=== PATIENT | female | born 1970 | race Caucasian/White ===

== ENCOUNTER → 2016-07-23 | Outpatient (CLI) | payer OTHER ==
--- NOTE | 2016-07-23 14:58 | REPMRS ---
Patient History The patient states she had a clinical breast exam in Family history of prostate cancer in father at age 50 or over, breast cancer in paternal aunt under age 50, and breast cancer in maternal grandmother at age 50 or over. Taking hormonal contraceptives for 4 years. Digital Woman Screen Mammo: July 23, 2016 - Exam #: [id number] Bilateral CC and MLO view(s) were taken. Technologist: Shanita Gonzalez, Technologist Prior study comparison: July 20, 2015, digital woman screen mammo performed at [facility]. February 04, 2014, digital woman screen mammo performed at [facility]. 2006, bilateral mammogram, performed at [facility]. FINDINGS: The breast tissue is heterogeneously dense. This may lower the sensitivity of mammography. There is a moderate amount of heterogeneously dense fibroglandular tissue which is fairly symmetric. There is no interval development of dominant mass, architectural distortion, or clustered microcalcification typical of malignancy. There has been no change in the appearance of the mammogram from the prior studies. ASSESSMENT: BI-RADS/ACR category 1 mammogram. Negative. Recommendation Routine screening mammogram of both breasts in 1 year (for women over age 40). This mammogram was interpreted with the aid of an FDA-approved computer-aided dectection system. Electronically Signed By: John Cast MD 07/23/16 [id number]
== END ==
LOC: M WHC 13:52
PROVIDERS: ATTEND Nurse Practitioner Women's Health
DX: Z12.31 Encounter for screening mammogram for malignant neoplasm of breast (principal)
CPT/HCPCS: G0123; G0202

== ENCOUNTER → 2016-08-26 | Outpatient (REF) | payer OTHER | LOC: M SFHCWAGY 13:51 | PROVIDERS: ATTEND Nurse Practitioner Women's Health | DX: R87.610 Atypical squamous cells of undetermined significance on cytologic smear of cervix (ASC-US) (principal) ==

== ENCOUNTER → 2016-09-12 | Outpatient (REF) | payer OTHER | LOC: M SMT 17:04 | PROVIDERS: ATTEND Nurse Practitioner Family | DX: N39.3 Stress incontinence (female) (male) (principal) ==

== ENCOUNTER → 2016-10-02 | Outpatient (CLI) | payer MEDICARE, OTHER ==
[2016-10-02 13:02] LABS: MEAN CORPUSCULAR HGB CONC 33.4 g/dl (32.0-36.5); MEAN CORPUSCULAR VOLUME 86.8 fl (80.0-96.0); RED CELL DISTRIBUTION WIDTH 13.4 % (11.5-14.5); WHITE BLOOD COUNT 5.6 K/mm3 (4.0-10.0)
[2016-10-02 13:40] LABS: FREE T4 0.8 NG/DL (0.76-1.46); IMMUNOGLOBULIN M 72.5 MG/DL (40-230)
[2016-10-02 14:13] LABS: BANDS 1 % (< 11); EOSINOPHILS 1 % (0-5)
[2016-10-02 14:14] LABS: ANISOCYTOSIS 1+
[2016-10-02 14:16] LABS: ERYTHROCYTE SEDIMENTATION RATE 9 mm/hr (0-20)
[2016-10-04 00:06] LABS: %CD3+CD4+CD8+ 0.6 % (Not Estab.); %CD3+CD4+CD8- 54.1 % (Not Estab.); %CD3+CD4-CD8+ 14.2 % (Not Estab.); %CD3+CD4-CD8- 1.3 % (Not Estab.); ABS CD3+CD4+CD8+ 10 /uL (Not Estab.); ABS CD3+CD4+CD8- 920 /uL (Not Estab.); ABS CD3+CD4-CD8+ 241 /uL (Not Estab.); ABS CD3+CD4-CD8- 22 /uL (Not Estab.); CD4/CD8 NYSDOH RATIO 3.81 (Not Estab.); Eosinophils 1 % (.); HCT 41.8 % (34.0-46.6); Monocytes 6 % (.); Neutrophils 62 % (.); WBC 5.6 x10E3/uL (3.4-10.8)
== END ==
LOC: M LAB 11:45
PROVIDERS: ATTEND Family Medicine
DX: D51.8 Other vitamin B12 deficiency anemias (principal); L21.9 Seborrheic dermatitis, unspecified; E78.2 Mixed hyperlipidemia

== ENCOUNTER 2016-12-23 17:26 | Emergency (ER) | payer MEDICARE, MEDICAID ==
[~2016-12-23] VITALS: Ht 162.6 cm; Wt 65.3 kg
[2016-12-23] MEDS ORDERED: ZOLP10TA2 PO (17:54)
[2016-12-23] MEDS ORDERED: ATOR80TA59 (17:54)
[2016-12-23] MEDS ORDERED: TOPI50TA9 PO (17:54)
[2016-12-23] MEDS ORDERED: CLON1TAB PO (17:54)
[2016-12-23] MEDS ORDERED: LATU80TA PO (17:54)
[2016-12-23] MEDS ORDERED: PARO20TA3 PO (17:54)
[2016-12-23] MEDS ORDERED: TIZA2TA PO (17:54)
[2016-12-23] MEDS ORDERED: BUPR100T3 PO (17:54)
[2016-12-23] MEDS ORDERED: PREVTAB2 (17:54)
[2016-12-23] MEDS ORDERED: BUTA-198 (17:54)
[2016-12-23] MEDS ORDERED: TRAZ50TA11 PO (17:54)
[2016-12-23] MEDS ORDERED: ARIP1TAB4 PO (17:54)
[2016-12-23] MEDS ORDERED: HYDR50TA70 PO (17:54)
[2016-12-23] MEDS ORDERED: ASEN5TA SL (17:54)
[2016-12-23] MEDS ORDERED: VITA1CAP40 (17:54)
[2016-12-23] MEDS ORDERED: AMIT25TA PO (17:54)
--- NOTE | 2016-12-23 18:40 | REP ---
Clinical: Headache and left facial droop . Comparison: 11/21/2015 . Findings: The ventricles, sulci, and cisterns are normal in position and appearance. Beard-white differentiation is maintained. No acute intracranial hemorrhage, mass/mass effect, pathology or trauma/injury. No evidence for acute infarction. No extra-axial fluid collection. Calvarium is intact. Paranasal sinuses and mastoid air cells are clear. Impression: Normal noncontrast head CT. No evidence for acute intracranial pathology or trauma/injury. Signed by Lorenzo Ramsey MD 12/23/2016 06:30 P
[2016-12-23] MEDS ORDERED: TOPI100T9 PO (19:34)
[2016-12-23 19:42] VITALS: BP 123/92
== END 2016-12-23 19:44 | disposition home or self-care (01) ==
LOC: M ED 17:26
DX: G43.709 Chronic migraine without aura, not intractable, without status migrainosus (principal); F43.10 Post-traumatic stress disorder, unspecified; F41.9 Anxiety disorder, unspecified; F31.9 Bipolar disorder, unspecified; F25.9 Schizoaffective disorder, unspecified; Z79.899 Other long term (current) drug therapy

== ENCOUNTER 2017-01-07 17:42 | Emergency (ER) | payer MEDICARE, MEDICAID ==
[~2017-01-07] VITALS: Ht 160 cm; Wt 64.7 kg
[~2017-01-07 17:42] MED LIST: AMIT25TA PO; ARIP1TAB4 PO; ASEN5TA SL; ATOR80TA59; BUPR100T3 PO; BUTA-198; CLON1TAB PO; HYDR50TA70 PO; LATU80TA PO; PARO20TA3 PO; PREVTAB2; TIZA2TA PO; TOPI100T9 PO; TOPI50TA9 PO; TRAZ50TA11 PO; VITA1CAP40; ZOLP10TA2 PO
[2017-01-07] MEDS ORDERED: RISP2TAB3 PO (18:03)
[2017-01-07 20:19] LABS: BASO % 0.3 % (0.0-1.0); EOS # 0.2 K/mm3 (0.0-0.50); EOS % 2.2 % (0.0-3.0); LARGE UNSTAINED CELL # 0.1 K/mm3 (0.0-0.4); LYMPH # 1.5 K/mm3 (1.5-4.5); LYMPH % 20.2 % (24.0-44.0); MEAN CORPUSCULAR HEMOGLOBIN 30.1 pg (27.0-33.0); MEAN CORPUSCULAR HGB CONC 34.4 g/dl (32.0-36.5); MEAN CORPUSCULAR VOLUME 87.3 fl (80.0-96.0); MONO # 0.3 K/mm3 (0.0-0.8); MONO % 4.2 % (0.0-5.0); NEUTROPHILS % 72.1 % (36.0-66.0); PLATELET COUNT, AUTOMATED 191 k/mm3 (150-450); RED CELL DISTRIBUTION WIDTH 13.9 % (11.5-14.5); WHITE BLOOD COUNT 6.9 K/mm3 (4.0-10.0)
[2017-01-07 20:49] LABS: CALCIUM LEVEL 8.8 MG/DL (8.5-10.1); CREATININE FOR GFR 1.11 MG/DL (0.55-1.02); GLOMERULAR FILTRATION RATE 56.1 (>58); POTASSIUM SERUM 3.4 MEQ/L (3.5-5.1)
[2017-01-07 21:46] VITALS: BP 120/80
[2017-01-07] MEDS ORDERED: MECL-68 PO (21:50)
[2017-01-07] MEDS ORDERED: MECLIZINE 25 MG TABLET PO ONE (22:00)
--- NOTE | 2017-01-08 04:30 | REPUSA ---
CT of the head Clinical history: vertigo. Comparison: 12/23/2016. Technique: Multiple axial CT images were obtained through the head without administration of contrast . Findings: The ventricles and sulci are symmetric bilaterally. There is no evidence of acute hemorrhag e or infarct. There is no midline shift, mass effect, or extra-axial fluid collection. The osseous st ructures are unremarkable. The visualized paranasal sinuses and mastoid air cells are clear. Impression: Negative study.
--- NOTE | 2017-01-08 08:31 | ECGEPIP ---
Stationary ECG Study [facility] - ED Test Date: 2017-01-07 Pat Name: KAHLIL THAPA Department: Room: - Gender: F Appointment Specialist: REID : [id number] Requested By: SAIRA Brizuela PA-C Order Number: [id number] Reading MD: Javy Leach Measurements Intervals [place] Rate: 100 P: 35 IA: 162 QRS: 39 QRSD: 117 T: 10 QT: 366 QTc: 473 Interpretive Statements SINUS TACHYCARDIA MODERATE INTRAVENTRICULAR CONDUCTION DELAY NONSPECIFIC T-WAVE ABNORMALITY SIMILAR TO 11/21/15 Electronically Signed On 01-08-2017 8:30:50 EDT by Javy Leach
== END 2017-01-07 22:17 | disposition home or self-care (01) ==
LOC: M ED 17:42
DX: R42 Dizziness and giddiness (principal); R55 Syncope and collapse; R29.6 Repeated falls; F41.9 Anxiety disorder, unspecified; R00.0 Tachycardia, unspecified; F25.9 Schizoaffective disorder, unspecified; F31.9 Bipolar disorder, unspecified; F43.10 Post-traumatic stress disorder, unspecified; Z79.899 Other long term (current) drug therapy

== ENCOUNTER 2017-01-15 19:08 | Emergency (ER) | payer MEDICARE, MEDICAID ==
[~2017-01-15] VITALS: Ht 154.9 cm; Wt 67.6 kg
[~2017-01-15 19:08] MED LIST changes: +MECL-68 PO; +RISP2TAB3 PO
[2017-01-15] MEDS ORDERED: BUPR100T3 PO (19:26)
[2017-01-15] MEDS ORDERED: ADDE20CA3 PO (19:26)
[2017-01-15 20:05] LABS: BASO % 0.3 % (0.0-1.0); EOS # 0.1 K/mm3 (0.0-0.50); EOS % 2.3 % (0.0-3.0); LARGE UNSTAINED CELL # 0.1 K/mm3 (0.0-0.4); LYMPH # 1.4 K/mm3 (1.5-4.5); LYMPH % 20.7 % (24.0-44.0); MEAN CORPUSCULAR HEMOGLOBIN 28.7 pg (27.0-33.0); MEAN CORPUSCULAR HGB CONC 32.8 g/dl (32.0-36.5); MEAN CORPUSCULAR VOLUME 87.6 fl (80.0-96.0); MONO # 0.3 K/mm3 (0.0-0.8); MONO % 4.8 % (0.0-5.0); NEUTROPHILS # 4.3 K/mm3 (1.8-7.7); PLATELET COUNT, AUTOMATED 211 k/mm3 (150-450); RED CELL DISTRIBUTION WIDTH 13.7 % (11.5-14.5); WHITE BLOOD COUNT 6.1 K/mm3 (4.0-10.0)
[2017-01-15 20:30] VITALS: BP 121/77
[2017-01-15 21:17] LABS: ALBUMIN 3.5 GM/DL (3.2-5.2); ALBUMIN/GLOBULIN RATIO 0.97 (1.00-1.93); ALKALINE PHOSPHATASE 114 U/L (45-117); ALT/SGPT 43 U/L (12-78); ANION GAP 7 MEQ/L (8-16); AST/SGOT 22 U/L (15-37); BILIRUBIN,DIRECT 0.1 MG/DL (0.0-0.2); BILIRUBIN,TOTAL 0.3 MG/DL (0.2-1.0); BLOOD UREA NITROGEN 11 MG/DL (7-18); CALCIUM LEVEL 8.4 MG/DL (8.5-10.1); CARBON DIOXIDE LEVEL 22 MEQ/L (21-32); CHLORIDE LEVEL 112 MEQ/L (98-107); CREATININE FOR GFR 1.04 MG/DL (0.55-1.02); GLOMERULAR FILTRATION RATE > 60.0 (>58); GLUCOSE, FASTING 93 MG/DL (70-105); POTASSIUM SERUM 3.8 MEQ/L (3.5-5.1); SODIUM LEVEL 141 MEQ/L (136-145); TOTAL PROTEIN 7.1 GM/DL (6.4-8.2)
[2017-01-15 21:49] LABS: CONTROL LINE HCG INT CTR LINE PRESENT
--- NOTE | 2017-01-16 11:23 | ECGEPIP ---
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
--- NOTE | 2017-01-17 17:00 | ECGEPIP ---
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
== END 2017-01-16 00:39 | disposition home or self-care (01) ==
LOC: M ED 19:08 → EDBD 19:08 → M ED 01-16 00:39
DX: T50.901A Poisoning by unspecified drugs, medicaments and biological substances, accidental (unintentional), initial encounter (principal); X58.XXXA Exposure to other specified factors, initial encounter; Y92.9 Unspecified place or not applicable; Y93.9 Activity, unspecified; Y99.8 Other external cause status; I10 Essential (primary) hypertension; F32.9 Major depressive disorder, single episode, unspecified; M19.90 Unspecified osteoarthritis, unspecified site; E78.5 Hyperlipidemia, unspecified; G43.909 Migraine, unspecified, not intractable, without status migrainosus
CPT/HCPCS: 36415; 80048; 80076; 82550; 84443; 84703; 85025; 93005; 93041; 94760; 99285; G0480

== ENCOUNTER → 2017-02-27 | Outpatient (REF) | payer MEDICARE, MEDICAID ==
[~2017-02-27] MED LIST changes: +ADDE20CA3 PO
== END ==
LOC: M SFHCPLAZ 11:30
PROVIDERS: ATTEND Physician Assistant Medical
DX: G44.209 Tension-type headache, unspecified, not intractable (principal)
CPT/HCPCS: 85652; 86038; 86140; 86200; G0463

== ENCOUNTER → 2017-03-11 | Outpatient (REF) | payer MEDICARE, MEDICAID ==
[2017-03-11 19:23] LABS: VITAMIN B12 LEVEL 402 PG/ML (247-911)
[2017-03-11 19:38] LABS: ALBUMIN 3.8 GM/DL (3.2-5.2); ALBUMIN/GLOBULIN RATIO 1.03 (1.00-1.93); ALKALINE PHOSPHATASE 105 U/L (45-117); ALT/SGPT 25 U/L (12-78); ANION GAP 9 MEQ/L (8-16); AST/SGOT 15 U/L (15-37); BILIRUBIN,TOTAL 0.2 MG/DL (0.2-1.0); BLOOD UREA NITROGEN 12 MG/DL (7-18); CALCIUM LEVEL 8.5 MG/DL (8.5-10.1); CARBON DIOXIDE LEVEL 23 MEQ/L (21-32); CHLORIDE LEVEL 112 MEQ/L (98-107); CREATININE FOR GFR 0.94 MG/DL (0.55-1.02); GLOMERULAR FILTRATION RATE > 60.0 (>58); GLUCOSE, FASTING 106 MG/DL (70-105); SODIUM LEVEL 144 MEQ/L (136-145); TOTAL PROTEIN 7.5 GM/DL (6.4-8.2)
[2017-03-11 20:22] LABS: BASO % 0.2 % (0.0-1.0); EOS # 0.1 K/mm3 (0.0-0.50); EOS % 1.8 % (0.0-3.0); LARGE UNSTAINED CELL # 0.1 K/mm3 (0.0-0.4); LARGE UNSTAINED CELL % 1.3 % (0.0-4.0); LYMPH # 1.6 K/mm3 (1.5-4.5); LYMPH % 21.7 % (24.0-44.0); MEAN CORPUSCULAR HEMOGLOBIN 29.9 pg (27.0-33.0); MEAN CORPUSCULAR HGB CONC 33.2 g/dl (32.0-36.5); MEAN CORPUSCULAR VOLUME 90.1 fl (80.0-96.0); MONO # 0.2 K/mm3 (0.0-0.8); MONO % 3.3 % (0.0-5.0); NEUTROPHILS # 5.2 K/mm3 (1.8-7.7); NEUTROPHILS % 71.6 % (36.0-66.0); PLATELET COUNT, AUTOMATED 240 k/mm3 (150-450); RED CELL DISTRIBUTION WIDTH 14.6 % (11.5-14.5); WHITE BLOOD COUNT 7.3 K/mm3 (4.0-10.0)
[2017-03-14 10:13] LABS: PRETREATED FOLATE FOR RBCFOL 15.5 NG/ML
== END ==
LOC: M SFHCPLAZ 15:31
PROVIDERS: ATTEND Family Medicine
DX: E78.2 Mixed hyperlipidemia (principal); E55.9 Vitamin D deficiency, unspecified; D51.8 Other vitamin B12 deficiency anemias; Z79.899 Other long term (current) drug therapy
CPT/HCPCS: 36415; 80053; 82306; 82607; 82747; 83036; 83970; 85025; G0463

== ENCOUNTER → 2017-05-27 | Outpatient (REF) | payer MEDICARE, MEDICAID ==
[2017-05-30 00:06] LABS: AMITRIPTYLINE 54 ng/mL (Not Estab.); NORTRIPTYLINE 65 ng/mL (Not Estab.)
== END ==
LOC: M SFHCPLAZ 12:55
PROVIDERS: ATTEND Family Medicine
DX: F99 Mental disorder, not otherwise specified (principal); Z51.81 Encounter for therapeutic drug level monitoring
CPT/HCPCS: 36415; G0480

== ENCOUNTER 2017-06-26 17:53 | Emergency (ER) | payer MEDICARE, MEDICAID ==
[2017-06-26] MEDS: IBUPROFEN 800 MG TAB PO (21:10)
[2017-06-26] MEDS: BENZONATATE 100 MG CAP PO (21:10)
[2017-06-26] MEDS: AUGMENTIN 875 MG TAB PO (21:10)
== END 2017-06-26 21:11 | disposition home or self-care (01) ==
LOC: M ED 17:53
DX: M54.9 Dorsalgia, unspecified (principal); R05 Cough; R07.9 Chest pain, unspecified; I10 Essential (primary) hypertension; E78.70 Disorder of bile acid and cholesterol metabolism, unspecified; F25.9 Schizoaffective disorder, unspecified
CPT/HCPCS: 71046

== ENCOUNTER → 2017-08-07 | Outpatient (REF) | payer MEDICARE, MEDICAID ==
[2017-08-07 17:39] LABS: ALKALINE PHOSPHATASE 112 U/L (45-117); ALT/SGPT 29 U/L (12-78); ANION GAP 8 MEQ/L (8-16); AST/SGOT 16 U/L (7-37); BILIRUBIN,TOTAL 0.2 MG/DL (0.2-1.0); BLOOD UREA NITROGEN 13 MG/DL (7-18); CALCIUM LEVEL 8.8 MG/DL (8.5-10.1); CARBON DIOXIDE LEVEL 24 MEQ/L (21-32); CHLORIDE LEVEL 112 MEQ/L (98-107); GLOMERULAR FILTRATION RATE > 60.0 (>58); GLUCOSE, FASTING 87 MG/DL (70-100); POTASSIUM SERUM 3.7 MEQ/L (3.5-5.1); SODIUM LEVEL 144 MEQ/L (136-145)
[2017-08-07 17:40] LABS: ALBUMIN 3.9 GM/DL (3.2-5.2); ALBUMIN/GLOBULIN RATIO 1.11 (1.00-1.93); TOTAL PROTEIN 7.4 GM/DL (6.4-8.2)
[2017-08-07 18:04] LABS: BASO % 0.4 % (0.0-1.0); EOS # 0.1 10^3/uL (0.0-0.50); EOS % 0.9 % (0.0-3.0); HEMATOCRIT 41.2 % (36.0-47.0); HEMOGLOBIN 13.8 g/dl (12.0-16.0); IMMATURE GRANULOCYTE % 0.4 % (0-3.0); LYMPH # 1.6 10^3/uL (1.5-4.5); LYMPH % 28.9 % (24.0-44.0); MEAN CORPUSCULAR HEMOGLOBIN 29.8 pg (27.0-33.0); MEAN CORPUSCULAR HGB CONC 33.5 g/dl (32.0-36.5); MONO # 0.3 10^3/uL (0.0-0.8); MONO % 6.3 % (0.0-5.0); NEUTROPHILS # 3.4 10^3/uL (1.8-7.7); NEUTROPHILS % 63.1 % (36.0-66.0); PLATELET COUNT, AUTOMATED 282 10^3/uL (150-450); RED BLOOD COUNT 4.63 10^6/uL (4.00-5.40); WHITE BLOOD COUNT 5.4 10^3/uL (4.0-10.0)
== END ==
LOC: M LABNEURO 15:32
DX: G43.909 Migraine, unspecified, not intractable, without status migrainosus (principal)
CPT/HCPCS: 80053

== ENCOUNTER 2017-10-16 20:01 | Emergency (ER) | payer MEDICARE, MEDICAID ==
[2017-10-16] MEDS: IBUPROFEN 600 MG TAB PO (22:15)
== END 2017-10-16 22:42 | disposition home or self-care (01) ==
LOC: M ED 20:01
DX: S93.602A Unspecified sprain of left foot, initial encounter (principal); X50.0XXA Overexertion from strenuous movement or load, initial encounter; Y92.89 Other specified places as the place of occurrence of the external cause; Z79.899 Other long term (current) drug therapy
CPT/HCPCS: 73630

== ENCOUNTER → 2017-11-13 | Outpatient (REF) | payer MEDICARE, MEDICAID | LOC: M SFHCPLAZ 11:47 | DX: E78.2 Mixed hyperlipidemia (principal); E55.9 Vitamin D deficiency, unspecified; Z53.8 Procedure and treatment not carried out for other reasons ==

== ENCOUNTER → 2017-11-18 | Outpatient (REF) | payer MEDICARE, MEDICAID ==
[2017-11-18 16:20] LABS: PTH INTACT 49.8 PG/ML (18.5-88.0); TOTAL 25(OH) VITAMIN D 24.1 NG/ML (30.0-100.0)
[2017-11-18 16:30] LABS: ALBUMIN 4.1 GM/DL (3.2-5.2); ALBUMIN/GLOBULIN RATIO 1.32 (1.00-1.93); ALKALINE PHOSPHATASE 118 U/L (45-117); ALT/SGPT 16 U/L (12-78); ANION GAP 7 MEQ/L (8-16); AST/SGOT 14 U/L (7-37); BILIRUBIN,TOTAL 0.3 MG/DL (0.2-1.0); BLOOD UREA NITROGEN 10 MG/DL (7-18); C REACTIVE PROTEIN QUANTITATIV 1.61 MG/DL (0.00-0.30); CALCIUM LEVEL 8.3 MG/DL (8.5-10.1); CARBON DIOXIDE LEVEL 22 MEQ/L (21-32); CHLORIDE LEVEL 111 MEQ/L (98-107); CHOLESTEROL LEVEL 213 MG/DL (<200); CHOLESTEROL RISK RATIO 4.437 (<5); CPK CREATINE PHOSPHOKINASE 32 U/L (26-192); CREATININE FOR GFR 0.95 MG/DL (0.55-1.30); FREE T4 0.55 NG/DL (0.76-1.46); GLOMERULAR FILTRATION RATE > 60.0 (>58); GLUCOSE, FASTING 81 MG/DL (70-100); HDL CHOLESTEROL 48 MG/DL (>40); LDL CHOLESTEROL 112.4 MG/DL (<100); NON-HDL-C 165 MG/DL; POTASSIUM SERUM 3.6 MEQ/L (3.5-5.1); SODIUM LEVEL 140 MEQ/L (136-145); THYROID STIMULATING HORMONE 0.518 uIU/ML (0.358-3.740); TOTAL PROTEIN 7.2 GM/DL (6.4-8.2); TRIGLYCERIDES LEVEL 263 MG/DL (<150)
== END ==
LOC: M SFHCPLAZ 11:02
DX: E78.2 Mixed hyperlipidemia (principal); E55.9 Vitamin D deficiency, unspecified
CPT/HCPCS: 82550

== ENCOUNTER → 2018-01-13 | Outpatient (CLI) | payer MEDICARE, MEDICAID | LOC: M WHC 09:03 | DX: Z12.31 Encounter for screening mammogram for malignant neoplasm of breast (principal); Z92.0 Personal history of contraception; Z80.3 Family history of malignant neoplasm of breast; Z12.4 Encounter for screening for malignant neoplasm of cervix | CPT/HCPCS: 77067; G0123 ==

== ENCOUNTER → 2018-01-13 | Outpatient (REF) | payer MEDICARE, MEDICAID ==
[2018-01-17 00:08] LABS: HPV HYBRID CAPTURE II Negative (Negative)
== END ==
LOC: M SFHCWAGY 14:24
DX: Z12.4 Encounter for screening for malignant neoplasm of cervix (principal)
CPT/HCPCS: G0123

== ENCOUNTER → 2018-03-17 | Outpatient (REF) | payer MEDICARE, MEDICAID ==
[2018-03-17 13:12] LABS: BASO % 0.2 % (0.0-1.0); EOS # 0.1 10^3/uL (0.0-0.50); EOS % 1.8 % (0.0-3.0); HEMATOCRIT 41.1 % (36.0-47.0); HEMOGLOBIN 13.5 g/dl (12.0-15.5); IMMATURE GRANULOCYTE % 0.7 % (0-3.0); LYMPH # 1.2 10^3/uL (1.5-4.5); LYMPH % 21.3 % (24.0-44.0); MEAN CORPUSCULAR HEMOGLOBIN 30.1 pg (27.0-33.0); MEAN CORPUSCULAR HGB CONC 32.8 g/dl (32.0-36.5); MEAN CORPUSCULAR VOLUME 91.7 fl (80.0-96.0); MONO # 0.3 10^3/uL (0.0-0.8); MONO % 5.9 % (0.0-5.0); NEUTROPHILS # 3.9 10^3/uL (1.8-7.7); NEUTROPHILS % 70.1 % (36.0-66.0); PLATELET COUNT, AUTOMATED 249 10^3/uL (150-450); RED BLOOD COUNT 4.48 10^6/uL (4.00-5.40); RED CELL DISTRIBUTION WIDTH 14.6 % (11.5-14.5); WHITE BLOOD COUNT 5.6 10^3/uL (4.0-10.0)
[2018-03-17 13:38] LABS: HEMATOCRIT 41.1 % (36.0-47.0)
[2018-03-17 15:41] LABS: ALBUMIN 3.7 GM/DL (3.2-5.2); ALBUMIN/GLOBULIN RATIO 1.12 (1.00-1.93); ALKALINE PHOSPHATASE 105 U/L (45-117); ALT/SGPT 17 U/L (12-78); ANION GAP 15 MEQ/L (8-16); AST/SGOT 14 U/L (7-37); BILIRUBIN,TOTAL 0.1 MG/DL (0.2-1.0); BLOOD UREA NITROGEN 12 MG/DL (7-18); CALCIUM LEVEL 8.8 MG/DL (8.5-10.1); CARBON DIOXIDE LEVEL 20 MEQ/L (21-32); CHLORIDE LEVEL 107 MEQ/L (98-107); CREATININE FOR GFR 0.81 MG/DL (0.55-1.30); GLOMERULAR FILTRATION RATE > 60.0 (>58); GLUCOSE, FASTING 78 MG/DL (70-100); POTASSIUM SERUM 3.8 MEQ/L (3.5-5.1); SODIUM LEVEL 142 MEQ/L (136-145)
[2018-03-18 10:40] LABS: H PYLORI SERUM QUANT IgG ABY 0.28 (0.00-0.79)
[2018-03-20 11:05] LABS: PRETREATED FOLATE FOR RBCFOL 14.1 NG/ML; RBC FOLATE 720.4 NG/ML (280-791)
[2018-03-22 00:06] LABS: INSULIN LEVEL 3.8 uIU/mL (2.6-24.9)
[2018-03-22 00:06] LABS: FREE T4 BY DIALYSIS DIRECT 0.49 ng/dL (.)
== END ==
LOC: M SFHCPLAZ 10:46
DX: D51.8 Other vitamin B12 deficiency anemias (principal); E78.2 Mixed hyperlipidemia; E55.9 Vitamin D deficiency, unspecified; Z51.81 Encounter for therapeutic drug level monitoring; Z79.82 Long term (current) use of aspirin
CPT/HCPCS: 83525

== ENCOUNTER → 2018-03-27 | Outpatient (CLI) | payer MEDICARE, MEDICAID | LOC: M RAD 16:43 | DX: M50.322 Other cervical disc degeneration at C5-C6 level (principal); M50.221 Other cervical disc displacement at C4-C5 level; M50.223 Other cervical disc displacement at C6-C7 level | CPT/HCPCS: 72141 ==

== ENCOUNTER → 2018-07-10 | Outpatient (REF) | payer MEDICARE, MEDICAID ==
[~2018-07-10] MED LIST changes: +AUGM875T28 PO; -CLON1TAB PO; +CLON1TAB8 PO; +EZET10TA; +IBUP-1022 PO; +LAMO100T; +OMEP20CA3; +PROP10TA56; +QUET1TAB10; +QUET1TAB8; +TESS100C PO; +TIZANIDINE; +TRAZ-160 PO; -TRAZ50TA11 PO; -VITA1CAP40; +VITA50005; +ZALE10CA
== END ==
LOC: M LAB REF 14:47
PROVIDERS: ATTEND Physician Assistant
DX: R30.0 Dysuria (principal)

== ENCOUNTER → 2018-07-28 | Outpatient (CLI) | payer MEDICARE, MEDICAID ==
[2018-07-28 19:07] LABS: BASO % 0.7 % (0.0-1.0); EOS # 0.1 10^3/uL (0.0-0.50); EOS % 2.2 % (0.0-3.0); HEMATOCRIT 39.7 % (36.0-47.0); LYMPH # 1.4 10^3/uL (1.5-4.5); LYMPH % 25.3 % (24.0-44.0); MEAN CORPUSCULAR HEMOGLOBIN 30.5 pg (27.0-33.0); MEAN CORPUSCULAR HGB CONC 32.7 g/dl (32.0-36.5); MEAN CORPUSCULAR VOLUME 93.2 fl (80.0-96.0); MONO # 0.5 10^3/uL (0.0-0.8); MONO % 8.4 % (0.0-5.0); NEUTROPHILS # 3.4 10^3/uL (1.8-7.7); NEUTROPHILS % 63.2 % (36.0-66.0); PLATELET COUNT, AUTOMATED 253 10^3/uL (150-450); RED BLOOD COUNT 4.26 10^6/uL (4.00-5.40); WHITE BLOOD COUNT 5.4 10^3/uL (4.0-10.0)
[2018-07-28 19:26] LABS: ALBUMIN 3.8 GM/DL (3.2-5.2); ALT/SGPT 19 U/L (12-78); BILIRUBIN,TOTAL 0.2 MG/DL (0.2-1.0); BLOOD UREA NITROGEN 15 MG/DL (7-18); C REACTIVE PROTEIN QUANTITATIV 1.06 MG/DL (0.00-0.30); CALCIUM LEVEL 8.8 MG/DL (8.5-10.1); CARBON DIOXIDE LEVEL 25 MEQ/L (21-32); CHLORIDE LEVEL 108 MEQ/L (98-107); CHOLESTEROL LEVEL 225 MG/DL (<200); CHOLESTEROL RISK RATIO 3.461 (<5); CPK CREATINE PHOSPHOKINASE 152 U/L (26-192); CREATININE FOR GFR 0.93 MG/DL (0.55-1.30); FREE T4 0.62 NG/DL (0.76-1.46); GLOMERULAR FILTRATION RATE > 60.0 (>58); GLUCOSE, FASTING 86 MG/DL (70-100); HDL CHOLESTEROL 65 MG/DL (>40); LDL CHOLESTEROL 126 MG/DL (<100); NON-HDL-C 160 MG/DL; POTASSIUM SERUM 4.1 MEQ/L (3.5-5.1); PTH INTACT 61.7 PG/ML (18.5-88.0); SODIUM LEVEL 139 MEQ/L (136-145); THYROID STIMULATING HORMONE 0.709 uIU/ML (0.358-3.740); TOTAL 25(OH) VITAMIN D 15.6 NG/ML (30.0-100.0); TOTAL PROTEIN 7.2 GM/DL (6.4-8.2); TRIGLYCERIDES LEVEL 170 MG/DL (<150)
[2018-07-29 09:35] LABS: THYROGLOBULIN ANTIBODY 20.5 U/ML (<60.0); THYROID PEROXIDASE ANTIBODY < 28.0 U/ML (<60.0)
[2018-07-30 11:58] LABS: VITAMIN B12 LEVEL 308 PG/ML (232-1245)
== END ==
LOC: M WUC 14:08
PROVIDERS: ATTEND Family Medicine
DX: D51.8 Other vitamin B12 deficiency anemias (principal); E78.2 Mixed hyperlipidemia; E55.9 Vitamin D deficiency, unspecified
CPT/HCPCS: 36415; 80053; 80061; 82306; 82550; 82607; 83970; 84439; 84443; 85025; 86140; 86376; 86800; G0463

== ENCOUNTER → 2018-09-08 | Outpatient (CLI) | payer MEDICARE, MEDICAID ==
--- NOTE | 2018-09-09 23:07 | ECWPNPC ---
PATIENT NAME: KAHLIL OZUNA : 1970 GENDER: FEMALE VISIT DATE: 09/08/2018 DISCHARGE DATE: 09/08/18 1219 VISIT LOCKED DATE TIME: PHYSICIAN: MAYCO NIEVES PHYSICIAN PAGER NO: [phone] RESOURCE: MAYCO NIEVES REASON FOR APPOINTMENT 1. CERVICAL HISTORY OF PRESENT ILLNESS NEW PATIENT CONSULT: WHEN DID YOUR PAIN FIRST START? OTHER. BRIEFLY DESCRIBE HOW YOUR PAIN STARTED? NATURE: DULL. HOW DOES YOUR PAIN CHANGE WITH TIME? ROTATION TO LEFT SIDE, WORSENS PAIN. DOES YOUR PAIN AWAKEN YOU FROM SLEEP? NO. HOW MANY HOURS OF SLEEP DO YOU NORMALLY GET? 5 HOURS. ANY DIAGNOSTIC TESTING? MRI 2018. FACILITY WHERE TESTS WERE DONE? ____. PAIN TREATMENT TREATMENT YES CANCER HAVE YOU EVER HAD ANY TYPE OF CANCER?NO NO. 47 YEAR OLD FEMALE WITH HX OF CHRONIC NECK PAIN FOR MANY YEARS. WAS REFERRED BY PCP FOR CHRONIC NECK PAIN AND MIGRAINES. PAIN SCALE 7/10HAS BI POLAR DISORDER.MRI 2018:DEGENERAIVE NARROWING OF C5-C6.MILD BILATERAL UNCOVERTEBRAL SPURRING AT C5-C6C6-7 DIFFUSE DISC BULGIMP: DDD AT C5-C6, SMALL DISC PROTRUSION.MRI BRAIN ( FOR DIZZINESS) NEGATIVE STUDYHAS BEEN USING METHOCARBAMOL FOR PAIN. PAIN SCREENING: PATIENT HAS A COMPLAINT OF ACUTE OR CHRONIC PAIN :YES FALL RISK SCREENING: SCREENING : NO FALLS IN THE PAST YEAR. ALVAREZ INVENTORY: QUESTIONNAIRE ASSESSEDTBD SCORE VALUE CALCULATED TBD CURRENT MEDICATIONS TAKING VITAMIN B-12 1000 MCG TABLET 1 TABLET ORALLY ONCE A DAY TAKING RELPAX 40 MG TABLET 1 TABLET NEEDED ONE TIME ORALLY ONCE A DAY PRN MIGRAINE TAKING TOPIRAMATE 100 MG TABLET 1 TABLET ORALLY TWICE A DAY TAKING LATUDA 80 MG TABLET 2 TABLET ORALLY BEFORE BEDTIME TAKING PAXIL 40 MG TABLET 1 TABLET IN THE MORNING ORALLY ONCE A DAY TAKING LAMOTRIGINE 100 MG TABLET 1 TABLET ORALLY TWICE A DAY TAKING SEROQUEL 300 MG TABLET 1 TABLET ORALLY BEFORE BEDTIME TAKING SPRINTEC 28 0.25-35 MG-MCG TABLET 1 TABLET ORALLY ONCE A DAY AT SAME TIME EACH DAY TAKING ASPIRIN 81 MG TABLET CHEWABLE 1 TABLET ORALLY ONCE A DAY TAKING ATORVASTATIN CALCIUM 80 MG TABLET 1 TABLET ORALLY ONCE A DAY TAKING EZETIMIBE 10 MG TABLET 1 TABLET ORALLY ONCE A DAY TAKING ROBAXIN 500 MG TABLET 1 TAB ORALLY EVERY 6 HRS PRN NECK SPASM TAKING ERGOCALCIFEROL 48130 UNIT CAPSULE 1 CAPSULE ORALLY EVERY 7 DAYS NOT-TAKING DOXEPIN HCL 10 MG CAPSULE 1 CAPSULE AT BEDTIME ORALLY ONCE A DAY NOT-TAKING PAROXETINE HCL 40 MG TABLET 1 TABLET IN THE MORNING ORALLY ONCE A DAY NOT-TAKING EZETIMIBE 10 MG TABLET TAKE ONE TABLET BY MOUTH ONCE A DAY NOT-TAKING ATORVASTATIN CALCIUM 80 MG TABLET TAKE ONE TABLET BY MOUTH ONCE A DAY MEDICATION LIST REVIEWED AND RECONCILED WITH THE PATIENT PAST MEDICAL HISTORY MIGRAINE HEADACHES, COMMON TYPE-01/2011, 12/[address] OF THE BRAIN/ NORMAL MRI BRAIN S CONTRAST BILATERAL SUPRASPINATUS TENDINITIS-JULY 2011 NORMAL BILATERAL SHOULDER X-RAY/APRIL 2011 NEGATIVE RHEUMATOID FACTOR, RACHEL IMPAIRED FASTING GLUCOSE, GEST DM WITH 2ND PREG B12 DEFICIENCY HYPERLIPIDEMIA 2B DEPRESSION/ANXIETY DISORDER/INSOMNIA BIPOLAR DISORDER FIBROCYSTIC BREAST DISEASE INSOMNIA BPV HYPERTENSION-02/2014 NORMAL 24H URINE FOR METANEPHRINES/CATECHOLAMINES, UFC, ALODSTERONE, NA CERVICAL SPONDYLOSIS-MILD ML, BERONICA C56 C SMALL CENTRAL FOCAL HNP C MILD B UNCO SPUR BY 03/2018 MRI H/O YANELY III S/P LEEP L DISTAL TIBIA/FIBULA CLOSED FRACTURE SP 09/2017 MECHANICAL FALL-CASTED BY DR. AMADO NCOG PINEAL CYST NAFLD-DIFFUSE FATTY INFILTRATION C FOCAL DEPOSITION IN MEDIAL SEGMENT OF L LOBE AT SITE ? NODULE BY 03/2017 CT AP-SEEN BY 03/2017 MRI ABD S/C VERÓNICA ALLERGIES N.K.D.A. SURGICAL HISTORY COLPOSCOPY 08/11/2015 & 08/26/2016 LEEP 09/07/15 FAMILY HISTORY FATHER: ALIVE 67 YRS, HTN, PROSTATE CANCER, ENLARGED HEART MOTHER: ALIVE 65 YRS, DM, HYSTERECTOMY, DIAGNOSED WITH DIABETES IN 2 SIBLINGS: ALIVE 41, 34 YRS, SISTER-THYROID DISORDER, BROTHER-HEALTHY SON(S): ALIVE 13 YRS, ASTHMA DAUGHTER(S): ALIVE 15 YRS, NEUROCARDIOGENIC SYNCOPE PATERNAL GRAND FATHER: , HTN, DM PATERNAL GRAND MOTHER: , HTN, DM, PANCREATIC CANCER MATERNAL GRAND FATHER: , HTN, STROKE MATERNAL GRAND MOTHER: , HTN, DM, BREAST CANCER PATERNAL AUNT: ALIVE LATE 50'S YRS, BREAST CANCER DX LATE 20 1 BROTHER(S) , 1 SISTER(S) . 1 SON(S) , 1 DAUGHTER(S) . DENIES COLON OR OVARIAN CANCERS. FATHER HAD PROSTATE CANCER. SOCIAL HISTORY GENERAL: TOBACCO USE ARE YOU A:NONSMOKER NEVER SMOKER ALCOHOL SCREENING DID YOU HAVE A DRINK CONTAINING ALCOHOL IN THE PAST YEAR?NO POINTS0 INTERPRETATIONNEGATIVE RECREATIONAL DRUG USE DENIES. CAFFEINE CAFFEINE USE?YES AILY HAS A CUP SEXUAL HX HAD SEX IN THE LAST 12 MONTHS (VAGINAL, ORAL, OR ANAL)?YES WITHMEN ONLY USE PROTECTION?NO HAVE YOU EVER HAD AN STD?NO LMP:03/25/2017 HIV / HEP-C SCREENING HIV TEST OFFERED TO PATIENT:YES DATE OFFERED:07/23/2016 TEST ACCEPTED:NO REASON:PATIENT DECLINED SABIANIST NO PENTECOSTALISM BELIEFS THAT WOULD IMPACT HEALTH CARE. LANGUAGE MALAY. EDUCATION LEVEL OF EDUCATION:HIGH SCHOOL LEARNING BARRIERS / SPECIAL NEEDS CHANGE FROM LAST VISIT?YES MIGRAINE BARRIERS TO LEARNING?NO HEARING IMPAIRED?NO VISION IMPAIRED?NO COGNITIVELY IMPAIRED?NO READINESS TO LEARN?YES LEARNING PREFERENCES?NO LEARNING CAPABILITIES PRESENT?YES EMOTIONAL BARRIERS?NO SPECIAL DEVICES?NO PATIENT SERVICE REPRESENTATIVE NEEDED?NO DOMESTIC VIOLENCE DENIES, 02/23/14 HITS=4. OCCUPATION: DISABLED. DIET: NO HX EATING DISORDERS. EXERCISE: NO REGULAR EXERCISE SOME WALKING. MARITAL STATUS: .. OTHERS AT HOME: BOYFRIEND. PAIN CLINIC PFS, CLERGY, PUBLIC HEALTH REFERRALS HAS THE PATIENT BEEN EDUCATED REGARDING HIS/HER PLAN OF CARE?YES HAS THE PATIENT BEEN EDUCATED REGARDING PAIN, THE RISK FOR PAIN, THE IMPORTANCE OF EFFECTIVE PAIN MANAGEMENT, AND THE PAIN ASSESSMENT PROCESS?YES CLERGY REFERRAL NEEDED?NO WAS THE PROVIDER NOTIFIED OF ANY PERTINENT INFO?NO PFS REFERRAL NEEDED?NO PUBLIC HEALTH REFERRAL NEEDED?NO HOUSING: OWNS HOME. ADVANCE DIRECTIVE ADVANCE DIRECTIVE DISCUSSED WITH PATIENT:YES PT DECLINES ANY ASSISTANCE WITH FILLING OUT OR DECLINES PAPERWORK PATIENT: ____. HOSPITALIZATION/MAJOR DIAGNOSTIC PROCEDURE NONE REVIEW OF SYSTEMS REVIEWED BY: PROVIDER: JOSUÉ Fisher CONSTITUTIONAL: ANY CHANGE IN YOUR MEDICAL CONDITION? NO . CHILLS NO . FEVER NO . INFECTION: DO YOU HAVE NEW INFECTIONS? NO . DO YOU HAVE HISTORY OF MRSA? NO . MUSCULOSKELETAL: ANY NEW PATTERNS OF PAIN OR NUMBNESS? NO . SYTEMIC LUPUS NO . GASTROENTEROLOGY: ANY NEW CHANGE IN BOWEL CONTROL? NO . BARRETTS ESOPHAGUS NO . CIRRHOSIS NO . HEPATITIS NO . LIVER FAILURE NO . ACID REFLUX NO . UNEXPLAINED WEIGHT LOSS NO . GENITOURINARY: ANY NEW CHANGE IN BLADDER CONTROL? NO . IS THERE A CHANCE YOU COULD BE ? NO . HEMATOLOGY/LYMPH: DO YOU TAKE ANY BLOOD THINNERS? (FOR EXAMPLE- COUMADIN, PLAVIX, AGGRENOX, PLATEL, PRADAXA, OR XARELTO) NO . WHEN WAS YOUR LAST DOSE? DATE: TIME: . LOW PLATELET COUNT NO . SICKLE CELL DISEASE NO . VON WILLIEBRANDS NO . FACTOR V LEIDEN NO . THALLASEMIA NO . ANEMIA NO . EASY BRUISING NO . NEUROLOGY: HAVE YOU FALLEN IN THE PAST 12 MONTHS? NO . ANY NEW EXTREMITY NUMBNESS OR WEAKNESS? INCREASE IN HEADACHES AND STIFFNESS WHERE IT GETS STUCK MORE OBN THE LEFT SIDE OF NECK . HEAD INJURY NO . DEMENTIA NO . CEREBRAL PALSY NO . MULTIPLE SCLEROSIS NO . DIZZINESS NO . HEADACHE NO . STROKES NO . VERTIGO NO . CARDIOLOGY: DO YOU HAVE A PACEMAKER OR DEFIBRILLATOR? NO . ANGINA NO . HEART ATTACK NO . HEART SURGERY NO . CONGESTIVE HEART FAILURE/FLUID OVERLOAD NO . CHEST PAIN NO . HIGH BLOOD PRESSURE NO . IRREGULAR HEART BEAT NO . RESPIRATORY: HAVE YOU BEEN SICK IN THE PAST WEEK? NO . FEVER NO . FLU LIKE SYMPTOMS? NO . CPAP NO . BYPAP NO . ASTHMA NO . EMPHYSEMA NO . CHRONIC LUNG DISEASES NO . SHORTNESS OF BREATH ON EXERTION NO . DO YOU USE ANY TYPE OF TOBACCO (SMOKE, SMOKELESS, CHEW)? NO . COUGH NO . SNORING NO . INTEGUMENTARY: DO YOU HAVE ANY RASHES OR OPEN SORES? NO . ALLERGIC/IMMUNO: ARE YOU ALLERGIC TO IV DYE? NO . ANY NEW ALLERGIES? NO . PSYCHIATRIC: DO YOU HAVE THOUGHTS OF HURTING YOURSELF OR SOMEONE ELSE? NO . ARE YOU ABUSED, NEGLECTED, OR IN AN UNSAFE ENVIRONMENT? NO DOES HAVE A HISTORY OF BIPOLOR AND SEES LITELL . ENDOCRINOLOGY: ARE YOU DIABETIC? NO . THYROID DISORDER NO . OTHER: DO YOU NEED ANY PRESCRIPTIONS? INQUIRING ABOUT INCREASE IN MUSCLE RELAXER METHOCARBONALK . IF YES, PLEASE LIST: ____ . ANY NEW PROBLEMS WITH YOUR MEDICATIONS? NO . WHEN DID YOU LAST EAT? ____ . WHEN DID YOU LAST DRINK? ____ . WHAT DID YOU LAST DRINK? ____ . NAME OF PERSON DRIVING YOU HOME? ____ . DO YOU HAVE ANY OTHER QUESTIONS OR CONCERNS NO . VITAL SIGNS WT 138.4 LBS, HT 62 IN, BMI 25.31 INDEX, BP 105/72 MM HG, HR 89 /MIN, RR 18 /MIN, TEMP 96.6 F, OXYGEN SAT % 100%, NA INITIALS SC 10:14. EXAMINATION GENERAL EXAMINATION: GENERAL APPEARANCE:NO ACUTE DISTRESS, WELL NOURISHED AND HYDRATED. PSYCH AFFECT FLAT. NECK:NO SCARS, NO MASSES FROM NON TENDER ON PALPATION. HEART:NO MURMURS, REGULAR RATE AND RHYTHM. BACK:NO CVA TENDERNESS, UNREMARKABLE. ASSESSMENTS NECK PAIN - M54.2 (PRIMARY) MYOFASCIAL PAIN - M79.18 CERVICALGIA - M54.2 TREATMENT NECK PAIN CLINICAL NOTES: CONSULTATION DONE IN CONJUNCTION WITH DR CAVAZOS: [facility] AND ASKED TO CONTACT US AT PAIN MANAGEMENT HX OF MRI OF BRAIN IN 2017 CYSTIC APPEARING PINEAL GLAND. PROCEDURE CODES FA211 ESTABILISHED PATIENT [facility] CHARGE DISPOSITION & COMMUNICATION FOLLOW UP POST PROCEDURE (REASON: TPI BILAT) ELECTRONICALLY SIGNED BY TIFFANIE WALTON ON 09/09/2018 AT 09:30 AM EDT DISCLAIMER : THIS IS A VISIT SUMMARY EXTRACTED FROM THE [employer] CHART. IT IS NOT A COPY OF THE [employer] PROGRESS NOTE. ANGELINA
== END ==
LOC: M PAIN 10:00
PROVIDERS: ATTEND Nurse Practitioner Family
DX: M54.2 Cervicalgia (principal); M79.18 Myalgia, other site; G43.909 Migraine, unspecified, not intractable, without status migrainosus; R73.01 Impaired fasting glucose; I10 Essential (primary) hypertension; E78.5 Hyperlipidemia, unspecified; Z79.82 Long term (current) use of aspirin; Z79.899 Other long term (current) drug therapy; Z86.32 Personal history of gestational diabetes; Z86.59 Personal history of other mental and behavioral disorders

== ENCOUNTER → 2018-11-23 | Outpatient (REF) | payer MEDICARE, MEDICAID ==
[~2018-11-23] MED LIST changes: -EZET10TA; +EZET10TA21; -TRAZ-160 PO; +TRAZ-252 PO
[2018-11-23 13:27] LABS: C REACTIVE PROTEIN QUANTITATIV 1.46 MG/DL (0.00-0.30); CPK CREATINE PHOSPHOKINASE 618 U/L (26-192); TROPONIN I < 0.02 NG/ML (< 0.10)
[2018-11-26 00:09] LABS: ANA (HEP2) Negative (.); CYCLIC CITRULLINATED PEPTIDE 5 units (0-19)
== END ==
LOC: M SFHCPLAZ 10:14
PROVIDERS: ATTEND Family Medicine
DX: M50.30 Other cervical disc degeneration, unspecified cervical region (principal); E78.2 Mixed hyperlipidemia; M25.60 Stiffness of unspecified joint, not elsewhere classified
CPT/HCPCS: 82550; 84484; 85379; 85652; 86038; 86140; 86200; G0463

== ENCOUNTER → 2018-12-02 | Outpatient (CLI) | payer MEDICARE, MEDICAID ==
[~2018-12-02] MED LIST changes: +ISOVUE-370 76% 100ML VIAL (Q9967) As Ordered ONE
--- NOTE | 2018-12-02 11:18 | REP ---
CT ANGIOGRAM OF THE CHEST: TECHNIQUE: Axial contrast enhanced images from the thoracic inlet to the upper abdomen using 100 mL Isovue 370 intravenous contrast material with multiplanar reformations. There is a small, 4 mm filling defect in the proximal segmental branch supplying the medial basilar segment of the right lower lobe consistent with a single small focal pulmonary embolism. The other visualized pulmonary arteries opacify well with contrast with no other evidence of pulmonary embolism. There is no thoracic aortic aneurysm or dissection. There is no mediastinal, hilar, or chest wall lymphadenopathy. Heart is normal in size. There is no pleural or pericardial effusion. There is diffuse fatty infiltration of the liver. The lungs show scattered fibroatelectatic changes bilaterally particularly in the lung bases. IMPRESSION: There is a small focal 4 mm pulmonary embolism in the proximal aspect of the segmental pulmonary arterial branch supplying the medial basilar segment of the right lower lobe. No other evidence of pulmonary embolism. Scattered fibroatelectatic changes in the lung bases. Electronically Signed by Bal Beard MD 12/02/2018 04:51 P
== END ==
LOC: M RAD 09:44
PROVIDERS: ATTEND Family Medicine
DX: R79.89 Other specified abnormal findings of blood chemistry (principal); I26.99 Other pulmonary embolism without acute cor pulmonale
CPT/HCPCS: 71275; Q9967

== ENCOUNTER → 2018-12-07 | Outpatient (CLI) | payer MEDICARE, MEDICAID ==
[~2018-12-07] MED LIST changes: -ISOVUE-370 76% 100ML VIAL (Q9967) As Ordered ONE
[2018-12-07 12:28] LABS: HEMATOCRIT 44.7 % (36.0-47.0); HEMOGLOBIN 14.4 g/dl (12.0-15.5); MEAN CORPUSCULAR HEMOGLOBIN 29.5 pg (27.0-33.0); MEAN CORPUSCULAR HGB CONC 32.2 g/dl (32.0-36.5); MEAN CORPUSCULAR VOLUME 91.6 fl (80.0-96.0); PLATELET COUNT, AUTOMATED 234 10^3/uL (150-450); RED BLOOD COUNT 4.88 10^6/uL (4.00-5.40); WHITE BLOOD COUNT 6.1 10^3/uL (4.0-10.0)
[2018-12-07 12:39] LABS: INR 0.97
[2018-12-07 12:40] LABS: PARTIAL THROMBOPLASTIN TIME 28.1 SECONDS (25.4-37.6)
[2018-12-07 12:47] LABS: ALBUMIN 4.2 GM/DL (3.2-5.2); CALCIUM LEVEL 9.2 MG/DL (8.5-10.1); CREATININE FOR GFR 1.24 MG/DL (0.55-1.30); GLOMERULAR FILTRATION RATE 48.9 (>58); PHOSPHORUS LEVEL 2.5 MG/DL (2.5-4.9)
--- NOTE | 2018-12-07 16:05 | REP ---
Bilateral lower extremity deep vein duplex ultrasound: The deep veins demonstrate normal compression, normal Doppler color flow and normal Doppler waveforms with respiration and augmentation from the popliteal veins to the common femoral veins the right and left . Impression: There is no deep vein thrombus in the right or left lower extremities. Electronically Signed by Bal Antonio MD 12/07/2018 12:42 P
[2018-12-15 00:06] LABS: ANTI THROMBIN 3 ANTIGEN IMMUNO 135 % (72-124); ANTI THROMBIN 3 FUNCT ACTIVITY 148 % (75-135); PROTEIN C FUNCTIONAL ACTIVITY 131 % (73-180); PROTEIN S FUNCTIONAL ACTIVITY 68 % (63-140)
[2018-12-15 09:12] LABS: DRVV SCREEN 54.4 SEC
[2018-12-15 09:13] LABS: PTT LUPUS TYPE ANTICOAG SCREEN 1.3 (0-1.2)
[2018-12-15 09:26] LABS: DRVV CONFIRM 38.8 SEC
[2018-12-15 09:56] LABS: NORMALIZED RATIO 1.3 (0.00-1.20)
== END ==
LOC: M RAD 11:37
PROVIDERS: ATTEND Nurse Practitioner Family
DX: I26.99 Other pulmonary embolism without acute cor pulmonale (principal)

== ENCOUNTER → 2018-12-07 | Outpatient (CLI) | payer MEDICARE, MEDICAID | LOC: M SMT 11:02 | PROVIDERS: ATTEND Nurse Practitioner Family | DX: I26.99 Other pulmonary embolism without acute cor pulmonale (principal); Z53.8 Procedure and treatment not carried out for other reasons ==

== ENCOUNTER 2018-12-17 09:11 | Emergency (ER) | payer OTHER, MEDICARE, MEDICAID ==
[~2018-12-17] VITALS: Ht 154.9 cm; Wt 61.4 kg
[~2018-12-17 09:11] MED LIST changes: -OMEP20CA3; +OMEP20CA4
[2018-12-17] MEDS ORDERED: XARE10TA PO (09:29)
--- NOTE | 2018-12-17 09:49 | REP ---
Clinical: Trauma . Comparison: 01/07/2017 Findings: The ventricles, sulci, and cisterns are normal in position and appearance. Beard-white differentiation is maintained. No acute intracranial hemorrhage, mass/mass effect, pathology or trauma/injury. No evidence for acute infarction. No extra-axial fluid collection. Calvarium is intact. Paranasal sinuses and mastoid air cells are clear. Impression: Normal noncontrast head CT. No evidence for acute intracranial pathology or trauma/injury. Electronically Signed by Lorenzo Ramsey MD 12/17/2018 09:41 A
--- NOTE | 2018-12-17 10:58 | REP ---
PA and lateral chest: Comparison is 06/26/2017. There is no pneumothorax, hemothorax or pulmonary contusion. The lung broderick are clear. Cardiac size is normal. The lizzeth, mediastinum, skeletal structures are unremarkable. There is no interval change. Impression: Negative PA and lateral chest. Electronically Signed by Bal Antonio MD 12/17/2018 10:50 A
[2018-12-17 11:52] VITALS: BP 90/63
--- NOTE | 2018-12-17 20:05 | ECGEPIP ---
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
== END 2018-12-17 12:04 | disposition home or self-care (01) ==
LOC: M ED 09:11 → EDBD 09:11 → M ED 12:04
DX: S20.211A Contusion of right front wall of thorax, initial encounter (principal); V43.92XA Unspecified car occupant injured in collision with other type car in traffic accident, initial encounter; Y92.410 Unspecified street and highway as the place of occurrence of the external cause; I10 Essential (primary) hypertension; F31.9 Bipolar disorder, unspecified; E78.9 Disorder of lipoprotein metabolism, unspecified; G43.909 Migraine, unspecified, not intractable, without status migrainosus; Z79.899 Other long term (current) drug therapy; Z79.01 Long term (current) use of anticoagulants

== ENCOUNTER → 2018-12-25 | Outpatient (REF) | payer MEDICARE, MEDICAID ==
[~2018-12-25] MED LIST changes: +OMEP20CA3; -OMEP20CA4; +XARE10TA PO
[2018-12-25 12:32] LABS: ALBUMIN 3.6 GM/DL (3.2-5.2); CALCIUM LEVEL 9.2 MG/DL (8.5-10.1); CREATININE FOR GFR 1.25 MG/DL (0.55-1.30); GLOMERULAR FILTRATION RATE 48.5 (>58); PHOSPHORUS LEVEL 2.9 MG/DL (2.5-4.9); POTASSIUM SERUM 3.8 MEQ/L (3.5-5.1)
== END ==
LOC: M SFHCPLAZ 08:53
PROVIDERS: ATTEND Nurse Practitioner Family
DX: I26.99 Other pulmonary embolism without acute cor pulmonale (principal)

== ENCOUNTER → 2019-01-04 | Outpatient (CLI) | payer MEDICARE, MEDICAID ==
[~2019-01-04] MED LIST changes: -OMEP20CA3; +OMEP20CA4
--- NOTE | 2019-01-06 01:59 | ECWPNPC ---
PATIENT NAME: KAHLIL THAPA : 1970 GENDER: FEMALE VISIT DATE: 01/04/2019 DISCHARGE DATE: 01/04/19 1412 VISIT LOCKED DATE TIME: PHYSICIAN: JENNY PACHECO PHYSICIAN PAGER NO: [phone] RESOURCE: JENNY PACHECO REASON FOR APPOINTMENT 1. POST TPI HISTORY OF PRESENT ILLNESS HISTORY OF PRESENT ILLNESS: PAIN THE PATIENT DESCRIBES THE PAIN... 48 YEAR OLD FEMALE IN FOR POST TPI FOLLOW UP. PATIENT STATES THE PROCEDURE WAS INEFFECTIVE AND CURRENTLY RATES HER PAIN AT A 7/10. SHE DOES ADMIT TO A RECENT DIAGNOSIS OF PULMONARY EMBOLI AND IS NOW TAKING XARELTO. WOULD LIKE TO DISCUSS MEDICATION TO HELP WITH PAIN. FALL RISK SCREENING: SCREENING :NO FALLS REPORTED IN THE LAST YEAR CURRENT MEDICATIONS TAKING LAMOTRIGINE 100 MG TABLET 1 TABLET ORALLY TWICE A DAY TAKING VITAMIN B-12 1000 MCG TABLET 1 TABLET ORALLY ONCE A DAY TAKING ROBAXIN 500 MG TABLET 1 TAB ORALLY EVERY 6 HRS PRN NECK SPASM TAKING TOPIRAMATE 100 MG TABLET 1 TABLET ORALLY TWICE A DAY TAKING RELPAX 40 MG TABLET 1 TABLET NEEDED ONE TIME ORALLY ONCE A DAY PRN MIGRAINE TAKING ERGOCALCIFEROL 99392 UNIT CAPSULE 1 CAPSULE ORALLY EVERY 7 DAYS TAKING SEROQUEL 300 MG TABLET 2 TABLET ORALLY BEFORE BEDTIME TAKING LATUDA 80 MG TABLET 2 TABLET ORALLY BEFORE BEDTIME TAKING PAXIL 40 MG TABLET 1 TABLET IN THE MORNING ORALLY ONCE A DAY, NOTES: 1000 TAKING RIVAROXABAN 15 MG TABLET 1 TABLET WITH FOOD ORALLY BID TAKING RIVAROXABAN 20 MG TABLET 1 TABLET WITH FOOD ORALLY ONCE A DAY NOT-TAKING ABILIFY 10 MG TABLET 1 TABLET ORALLY ONCE A DAY NOT-TAKING EZETIMIBE 10 MG TABLET 1 TABLET ORALLY ONCE A DAY MEDICATION LIST REVIEWED AND RECONCILED WITH THE PATIENT PAST MEDICAL HISTORY MIGRAINE HEADACHES, COMMON TYPE-01/2011, 12/[address] OF THE BRAIN/ NORMAL MRI BRAIN S CONTRAST BILATERAL SUPRASPINATUS TENDINITIS-JULY 2011 NORMAL BILATERAL SHOULDER X-RAY/APRIL 2011 NEGATIVE RHEUMATOID FACTOR, RACHEL IMPAIRED FASTING GLUCOSE, GEST DM WITH 2ND PREG B12 DEFICIENCY HYPERLIPIDEMIA 2B DEPRESSION/ANXIETY DISORDER/INSOMNIA BIPOLAR DISORDER FIBROCYSTIC BREAST DISEASE INSOMNIA BPV HYPERTENSION-02/2014 NORMAL 24H URINE FOR METANEPHRINES/CATECHOLAMINES, UFC, ALODSTERONE, NA CERVICAL SPONDYLOSIS-MILD ML, BERONICA C56 C SMALL CENTRAL FOCAL HNP C MILD B UNCO SPUR BY 03/2018 MRI H/O YANELY III S/P LEEP L DISTAL TIBIA/FIBULA CLOSED FRACTURE SP 09/2017 MECHANICAL FALL-CASTED BY DR. AMADO NCOG PINEAL CYST NAFLD-DIFFUSE FATTY INFILTRATION C FOCAL DEPOSITION IN MEDIAL SEGMENT OF L LOBE AT SITE ? NODULE BY 03/2017 CT AP-SEEN BY 03/2017 MRI ABD S/C VERÓNICA PULMONARY EMBOLISM NECK PAIN ALLERGIES N.K.D.A. SURGICAL HISTORY COLPOSCOPY 08/11/2015 & 08/26/2016 LEEP 09/07/15 FAMILY HISTORY FATHER: ALIVE 67 YRS, HTN, PROSTATE CANCER, ENLARGED HEART MOTHER: ALIVE 65 YRS, DM, HYSTERECTOMY, DIAGNOSED WITH DIABETES IN 2 SIBLINGS: ALIVE 41, 34 YRS, SISTER-THYROID DISORDER, BROTHER-HEALTHY SON(S): ALIVE 13 YRS, ASTHMA DAUGHTER(S): ALIVE 15 YRS, NEUROCARDIOGENIC SYNCOPE PATERNAL GRAND FATHER: , HTN, DM PATERNAL GRAND MOTHER: , HTN, DM, PANCREATIC CANCER MATERNAL GRAND FATHER: , HTN, STROKE MATERNAL GRAND MOTHER: , HTN, DM, BREAST CANCER PATERNAL AUNT: ALIVE LATE 50'S YRS, BREAST CANCER DX LATE 20 1 BROTHER(S) , 1 SISTER(S) . 1 SON(S) , 1 DAUGHTER(S) . DENIES COLON OR OVARIAN CANCERS. FATHER HAD PROSTATE CANCER. SOCIAL HISTORY GENERAL: TOBACCO USE ARE YOU A:NONSMOKER NEVER SMOKER HIV / HEP-C SCREENING HIV TEST OFFERED TO PATIENT:YES DATE OFFERED:07/23/2016 TEST ACCEPTED:NO REASON:PATIENT DECLINED OTHERS AT HOME: BOYFRIEND. HOUSING: OWNS HOME. EDUCATION LEVEL OF EDUCATION:HIGH SCHOOL DIET: NO HX EATING DISORDERS. LANGUAGE YAKUT. DOMESTIC VIOLENCE DO YOU FEEL SAFE IN YOUR ENVIRONMENT?YES RECREATIONAL DRUG USE DENIES. EXERCISE: NO REGULAR EXERCISE SOME WALKING. LEARNING BARRIERS / SPECIAL NEEDS CHANGE FROM LAST VISIT?NO BARRIERS TO LEARNING?NO HEARING IMPAIRED?NO VISION IMPAIRED?NO COGNITIVELY IMPAIRED?NO READINESS TO LEARN?YES LEARNING PREFERENCES?NO LEARNING CAPABILITIES PRESENT?YES EMOTIONAL BARRIERS?NO SPECIAL DEVICES?NO FIGURE MODEL NEEDED?NO PAIN CLINIC PFS, CLERGY, PUBLIC HEALTH REFERRALS HAS THE PATIENT BEEN EDUCATED REGARDING HIS/HER PLAN OF CARE?YES HAS THE PATIENT BEEN EDUCATED REGARDING PAIN, THE RISK FOR PAIN, THE IMPORTANCE OF EFFECTIVE PAIN MANAGEMENT, AND THE PAIN ASSESSMENT PROCESS?YES LATEX QUESTIONNAIRE LATEX ALLERGY : HAVE YOU EVER DEVELOPED ANY TYPE OF REACTION AFTER HANDLING LATEX PRODUCTS SUCH RUBBER GLOVES, CONDOMS, DIAPHRAGMS, BALLOONS, SOCKS, OR UNDERWEAR?NO LATEX ALLERGY : HAVE YOU EVER DEVELOPED ANY TYPE OF REACTION DURING OR AFTER DENTAL APPOINTMENT, VAGINAL/RECTAL EXAMINATION, SURGICAL PROCEDURE, OR ANY OTHER EXPOSURE?NO LATEX RISK : HAVE YOU EVER HAD ANY DIFFICULTY BREATHING OR HIVES AFTER EATING OR HANDLING ANY FRUITS, OR VEGETABLES; SUCH KIWI, BANANAS, STONE FRUITS, OR CHESTNUTSNO LATEX RISK : DO YOU HAVE A PREVIOUS PERSONAL HISTORY OF MORE THAN NINE SURGERIES, SPINA BIFIDA, OR REPEATED CATHERTIZATIONS? NO LATEX RISK : ARE YOU FREQUENTLY EXPOSED TO LATEX PRODUCTS IN YOUR OCCUPATION?NO DATE ASKED : 01/04/2019 CAFFEINE CAFFEINE USE?YES SCOTT HAS A CUP ADVANCE DIRECTIVE ADVANCE DIRECTIVE DISCUSSED WITH PATIENT:YES 01/04/19 PT DOES NOT HAVE ANY ADVANCED DIRECTIVES AND SHE DECLINED HCP INFORMATION AT THIS TIME. AD PENTECOSTALISM NO CONFUCIANIST BELIEFS THAT WOULD IMPACT HEALTH CARE. MARITAL STATUS: .. ALCOHOL SCREENING DID YOU HAVE A DRINK CONTAINING ALCOHOL IN THE PAST YEAR?NO POINTS0 INTERPRETATIONNEGATIVE OCCUPATION: DISABLED. SEXUAL HX HAD SEX IN THE LAST 12 MONTHS (VAGINAL, ORAL, OR ANAL)?YES WITHMEN ONLY USE PROTECTION?NO LMP:03/25/2017 HAVE YOU EVER HAD AN STD?NO REVIEWED WITH PATIENT 09/24/18 1435 JS. HOSPITALIZATION/MAJOR DIAGNOSTIC PROCEDURE REVIEW OF SYSTEMS REVIEWED BY: PROVIDER: QAMAR MORENO-Luiz . CONSTITUTIONAL: ANY CHANGE IN YOUR MEDICAL CONDITION? YES, PULMONARY EMBOLISM APPROX 3 WEEKS AGO . CHILLS NO . FEVER NO . INFECTION: DO YOU HAVE NEW INFECTIONS? NO . DO YOU HAVE HISTORY OF MRSA? NO . MUSCULOSKELETAL: ANY NEW PATTERNS OF PAIN OR NUMBNESS? NO . GASTROENTEROLOGY: ANY NEW CHANGE IN BOWEL CONTROL? NO . GENITOURINARY: ANY NEW CHANGE IN BLADDER CONTROL? NO . IS THERE A CHANCE YOU COULD BE ? NO . HEMATOLOGY/LYMPH: DO YOU TAKE ANY BLOOD THINNERS? (FOR EXAMPLE- COUMADIN, PLAVIX, AGGRENOX, PLATEL, PRADAXA, OR XARELTO) YES XARELTO . WHEN WAS YOUR LAST DOSE? DATE: TIME:01/03/19 1630 . NEUROLOGY: HAVE YOU FALLEN IN THE PAST 12 MONTHS? NO . ANY NEW EXTREMITY NUMBNESS OR WEAKNESS? NO . CARDIOLOGY: DO YOU HAVE A PACEMAKER OR DEFIBRILLATOR? NO . RESPIRATORY: HAVE YOU BEEN SICK IN THE PAST WEEK? NO . FEVER NO . FLU LIKE SYMPTOMS? NO . COUGH NO . INTEGUMENTARY: DO YOU HAVE ANY RASHES OR OPEN SORES? NO . ALLERGIC/IMMUNO: ARE YOU ALLERGIC TO IV DYE? NO . ANY NEW ALLERGIES? NO . PSYCHIATRIC: DO YOU HAVE THOUGHTS OF HURTING YOURSELF OR SOMEONE ELSE? NO . ARE YOU ABUSED, NEGLECTED, OR IN AN UNSAFE ENVIRONMENT? NO . ENDOCRINOLOGY: ARE YOU DIABETIC? NO . OTHER: DO YOU NEED ANY PRESCRIPTIONS? NO . IF YES, PLEASE LIST: ____ . ANY NEW PROBLEMS WITH YOUR MEDICATIONS? NO . WHEN DID YOU LAST EAT? ____ . WHEN DID YOU LAST DRINK? ____ . WHAT DID YOU LAST DRINK? ____ . NAME OF PERSON DRIVING YOU HOME? ____ . DO YOU HAVE ANY OTHER QUESTIONS OR CONCERNS NO . VITAL SIGNS WT 138.8 LBS, HT 62 IN, BMI 25.38 INDEX, BP 112/73 MM HG, HR 95 /MIN, RR 18 /MIN, TEMP 96.0 F, OXYGEN SAT % 95%, SAFE IN ENV? (Y/N) Y, NA INITIALS AW 1328, REVIEWED BY: FRANKY. EXAMINATION GENERAL EXAMINATION: GENERALNO ACUTE DISTRESS, WELL NOURISHED AND HYDRATED. PSYCHAPPROPRIATE MOOD AND AFFECT . NECK: NO ERYTHEMA, INCREASED WARMTH, ECCHYMOSIS, OR SKIN ERUTPTIONS NOTED. POINT TENDER C3-C4, C4-C5.. LUNGS:CLEAR TO AUSCULTATION BILATERALLY, NO WHEEZES, RHONCHI, RALES. HEART:NO MURMURS, REGULAR RATE AND RHYTHM. MUSCULOSKELETAL:EQUAL UPPER EXTREMITY STRENGTH. . ASSESSMENTS MYALGIA, OTHER SITE - M79.18 (PRIMARY) TREATMENT MYALGIA, OTHER SITE START BACLOFEN TABLET, 10 MG, DIRECTED, ORALLY, 0.5 TABLET 3 X DAILY NEEDED X 5 DAYS GOING TO 1 TABLET TID THEREAFTER, 30 DAY(S), 90, REFILLS 0 CLINICAL NOTES: 48 YEAR OLD FEMALE IN FOR POST TPI FOLLOW UP. GIVEN PRESENTING SYMPTOMS AND RESULTS OF PHYSICAL EXAMINATION RECOMMENDED ADDING BACLOFEN WITH FOLLOW UP IN 1 MONTH TO DETERMINE EFFICACY OF TREATMENT. PATIENT HAS EXPRESSED UNDERSTANDING OF AND WAS IN AGREEMENT WITH TX PLAN. GIVEN TIME TO ASK QUESTIONS AND EXPRESS CONCERNS. , ISTOP REGISTRY REVIEWED AND DEMONSTRATES COMPLLIANCE. (REF # [id number] ) BRINGS IN MEDICATIONS WHICH IS APPROPRIATE FOR WHAT WAS DISPENSED. RECENT URINE TOXICOLOGY REVIEWED. NO UNAUTHORIZED MEDICATIONS. NO ILLICIT SUBSTANCES AND PRESCRIBED MEDICATIONS WERE PRESENT. PREVENTIVE MEDICINE PAIN CLINIC TEACHING: MEDICATIONS PT GIVEN WRITTEN AND VERBAL EDUCATION ON STARTING BACLOFEN. PT VERBALIZES UNDERSTANDING OF ALL EDUCATION. MYRA GLEASON 01/04/2019 2:09:10 PM > . PROCEDURE CODES FA211 ESTABILISHED PATIENT [facility] CHARGE DISPOSITION & COMMUNICATION FOLLOW UP 4 WEEKS (REASON: MEDICATION EFFICACY) ELECTRONICALLY SIGNED BY TIFFANIE KLEIN ON 01/05/2019 AT 03:25 PM EDT DISCLAIMER : THIS IS A VISIT SUMMARY EXTRACTED FROM THE [employer] CHART. IT IS NOT A COPY OF THE [employer] PROGRESS NOTE. ANGELINA
== END ==
LOC: M PAIN 13:30
PROVIDERS: ATTEND Family Medicine
DX: M79.18 Myalgia, other site (principal); G43.009 Migraine without aura, not intractable, without status migrainosus; M06.9 Rheumatoid arthritis, unspecified; R73.01 Impaired fasting glucose; E53.8 Deficiency of other specified B group vitamins; F31.9 Bipolar disorder, unspecified; F41.9 Anxiety disorder, unspecified; G47.00 Insomnia, unspecified; I10 Essential (primary) hypertension; M47.812 Spondylosis without myelopathy or radiculopathy, cervical region; K76.0 Fatty (change of) liver, not elsewhere classified; Z86.711 Personal history of pulmonary embolism; Z87.81 Personal history of (healed) traumatic fracture; Z79.899 Other long term (current) drug therapy

== ENCOUNTER → 2019-01-14 | Outpatient (CLI) | payer MEDICARE, MEDICAID ==
--- NOTE | 2019-01-14 11:59 | REP ---
BILATERAL SCREENING DIGITAL MAMMOGRAM WITH 3D TOMOSYNTHESIS: There are no palpable abnormalities or other breast complaints. The the patient states she had a clinical breast examination December/2018. The the patient states she performs self-breast examinations zero times per year. The Tyrer Cuzick Score is: 19.6%. . Comparison is 02/04/2014. The breasts are heterogeneously dense, which could obscure small masses. There is no dominant mass, micro calcific cluster or architectural distortion that would indicate malignancy. There are no additional findings on 3D tomosynthesiss. There is no change from the prior study. Impression: BIRADS/ACR category 1 mammogram. Negative. Recommendation: Routine annual screening mammography. Because of the increased breast density, annual adjunctive breast MRI in addition to screening mammography is recommended. For women with a Tyrer-Cuzick score greater than 20 , adjunctive annual breast MRI in addition to screening mammography is recommended. This mammogram was interpreted with the aid of a FDA approved computer-aided detection system. A. Negative mammogram reports should not delay biopsy if a dominant or clinically suspicious mass is present. B. Not all breast cancers are identified by mammography or tomosynthesis. C. Adenosis and dense breasts may obscure an underlying neoplasm. Patient letter M1 dense breasts. Electronically Signed by Bal Antonio MD 01/14/2019 11:50 A
== END ==
LOC: M WHC 09:02
PROVIDERS: ATTEND Nurse Practitioner Women's Health
DX: Z12.31 Encounter for screening mammogram for malignant neoplasm of breast (principal)

== ENCOUNTER → 2019-01-14 | Outpatient (CLI) | payer MEDICARE, MEDICAID ==
[~2019-01-14] MED LIST changes: +GASTROGRAFIN SOLUTION 30ML (Q9963) As Ordered ONE; +ISOVUE-370 76% 100ML VIAL (Q9967) As Ordered ONE
--- NOTE | 2019-01-14 15:44 | REP ---
CT of the abdomen without IV contrast but with bowel contrast followed by CT of the abdomen and pelvis with IV contrast and with bowel contrast: Comparison is 04/15/2017. The study is performed for abdominal pain. The visualized lower lung broderick are unremarkable and unchanged except for small focal zone of atelectasis in the left deep posterior sulcus. The hepatic parenchyma is again slightly less dense than the spleen compatible with hepato steatosis. There is a small hypodense lesion in the medial segment of the hepatic left lobe, unchanged from the prior study. The the patient had an hepatic MRI 04/22/2017 that identified focal fatty infiltration of the liver to a slightly greater degree in this location and in the remainder of the liver. The hepatic parenchyma is otherwise homogeneous and unremarkable. The gallbladder, pancreas, spleen, adrenals, kidneys and abdominal aorta are unremarkable and unchanged. There is no retroperitoneal adenopathy or mass. There is a vwjrsfuo-yt-xmusg volume of fecal residue throughout the colon. The bowel and mesentery are otherwise unremarkable. The terminal ileum is unremarkable. Pelvis: The appendix is unremarkable. The uterus and adnexa are unremarkable. Bladder is unremarkable. There is no adenopathy or ascites. Impression: Foxytdfu-pc-lwwyg volume of fecal residue throughout the colon. Otherwise, negative CT of the abdomen pelvis. Electronically Signed by Bal Antonio MD 01/14/2019 03:37 P
== END ==
LOC: M RAD 13:57
PROVIDERS: ATTEND Nurse Practitioner Family
DX: R10.11 Right upper quadrant pain (principal)
CPT/HCPCS: 74178; Q9963; Q9967

== ENCOUNTER → 2019-01-14 | Outpatient (REF) | payer MEDICARE, MEDICAID ==
[~2019-01-14] MED LIST changes: -GASTROGRAFIN SOLUTION 30ML (Q9963) As Ordered ONE; -ISOVUE-370 76% 100ML VIAL (Q9967) As Ordered ONE
[2019-01-19 14:07] LABS: HPV HYBRID CAPTURE II Negative (Negative)
== END ==
LOC: M SFHCWAGY 10:03
PROVIDERS: ATTEND Nurse Practitioner Women's Health
DX: Z12.4 Encounter for screening for malignant neoplasm of cervix (principal); D06.9 Carcinoma in situ of cervix, unspecified; N72 Inflammatory disease of cervix uteri
CPT/HCPCS: 87624; G0101; G0123

== ENCOUNTER → 2019-02-01 | Outpatient (CLI) | payer MEDICARE, MEDICAID ==
--- NOTE | 2019-02-04 00:22 | ECWPNPC ---
PATIENT NAME: KAHLIL THAPA : 1970 GENDER: FEMALE VISIT DATE: 02/01/2019 DISCHARGE DATE: 02/01/19 1519 VISIT LOCKED DATE TIME: PHYSICIAN: JENNY PACHECO PHYSICIAN PAGER NO: [phone] RESOURCE: JENNY PACHECO REASON FOR APPOINTMENT 1. MEDICATION EFFICACY HISTORY OF PRESENT ILLNESS HISTORY OF PRESENT ILLNESS: PAIN THE PATIENT DESCRIBES THE PAIN... 48 YEAR OLD FEMALE IN FOR FOLLOW UP REGARDING MEDICATION EFFICACY. PT STATES THE BACLOFEN HELPED FOR ABOUT 1 WEEK BUT THEN STOPPED. SHE RATES HER PAIN AT AN 8/10 CURRENTLY. FALL RISK SCREENING: SCREENING :NO FALLS REPORTED IN THE LAST YEAR CURRENT MEDICATIONS TAKING LAMOTRIGINE 100 MG TABLET 1 TABLET ORALLY TWICE A DAY TAKING VITAMIN B-12 1000 MCG TABLET 1 TABLET ORALLY ONCE A DAY TAKING TOPIRAMATE 100 MG TABLET 1 TABLET ORALLY TWICE A DAY TAKING RELPAX 40 MG TABLET 1 TABLET NEEDED ONE TIME ORALLY ONCE A DAY PRN MIGRAINE TAKING SEROQUEL 300 MG TABLET 2 TABLET ORALLY BEFORE BEDTIME TAKING LATUDA 80 MG TABLET 2 TABLET ORALLY BEFORE BEDTIME TAKING PAXIL 40 MG TABLET 1 TABLET IN THE MORNING ORALLY ONCE A DAY, NOTES: 1000 TAKING BACLOFEN 10 MG TABLET 1 TAB ORALLY THREE TIMES DAILY TAKING XARELTO 20 MG TABLET TAKE ONE TABLET BY MOUTH ONCE A DAY WITH FOOD ORAL TAKING CLONAZEPAM 1 MG TABLET 1 TABLET ORAL NEED TAKING PRAZOSIN HCL 2 MG CAPSULE TAKE ONE CAPSULE BY MOUTH AT BEDTIME MAXIMUM DAILY DOSE 1 ORAL TAKING NEXPLANON 68 MG IMPLANT DIRECTED SUBCUTANEOUS NOT-TAKING ERGOCALCIFEROL 71227 UNIT CAPSULE 1 CAPSULE ORALLY EVERY 7 DAYS NOT-TAKING VRAYLAR 1.5 MG CAPSULE TAKE ONE CAPSULE BY MOUTH EVERY DAY ORAL NOT-TAKING SPRINTEC 28 0.25-35 MG-MCG TABLET 1 TABLET ORALLY ONCE A DAY DISCONTINUED RIVAROXABAN 20 MG TABLET 1 TABLET WITH FOOD ORALLY ONCE A DAY, NOTES: DUPLICATE MEDICATION LIST REVIEWED AND RECONCILED WITH THE PATIENT PAST MEDICAL HISTORY MIGRAINE HEADACHES, COMMON TYPE-01/2011, 12/[address] OF THE BRAIN//04/2015 NORMAL MRI BRAIN S CONTRAST BILATERAL SUPRASPINATUS TENDINITIS-JULY 2011 NORMAL BILATERAL SHOULDER X-RAY/APRIL 2011 NEGATIVE RHEUMATOID FACTOR, RACHEL IMPAIRED FASTING GLUCOSE, GEST DM WITH 2ND PREG B12 DEFICIENCY HYPERLIPIDEMIA 2B DEPRESSION/ANXIETY DISORDER/INSOMNIA BIPOLAR DISORDER FIBROCYSTIC BREAST DISEASE INSOMNIA BPV HYPERTENSION-02/2014 NORMAL 24H URINE FOR METANEPHRINES/CATECHOLAMINES, UFC, ALODSTERONE, NA CERVICAL SPONDYLOSIS-MILD ML, BERONICA C56 C SMALL CENTRAL FOCAL HNP C MILD B UNCO SPUR BY 03/2018 MRI H/O YANELY III S/P LEEP L DISTAL TIBIA/FIBULA CLOSED FRACTURE SP 09/2017 MECHANICAL FALL-CASTED BY DR. AMADO NCOG PINEAL CYST NAFLD-DIFFUSE FATTY INFILTRATION C FOCAL DEPOSITION IN MEDIAL SEGMENT OF L LOBE AT SITE ? NODULE BY 03/2017 CT AP-SEEN BY 03/2017 MRI ABD S/C VERÓNICA PULMONARY EMBOLISM NECK PAIN ALLERGIES ESTRADIOL: CONTRAINDICATION SURGICAL HISTORY COLPOSCOPY 08/11/2015 & 08/26/2016 LEEP 09/07/15 FAMILY HISTORY FATHER: ALIVE 67 YRS, HTN, PROSTATE CANCER, ENLARGED HEART MOTHER: ALIVE 65 YRS, DM, HYSTERECTOMY, CIRRHOSIS, DIAGNOSED WITH DIABETES IN 2, OTHER SIBLINGS: ALIVE 41, 34 YRS, SISTER-THYROID DISORDER, BROTHER-HEALTHY SON(S): ALIVE 13 YRS, ASTHMA DAUGHTER(S): ALIVE 15 YRS, NEUROCARDIOGENIC SYNCOPE PATERNAL GRAND FATHER: , HTN, DM PATERNAL GRAND MOTHER: , HTN, DM, PANCREATIC CANCER MATERNAL GRAND FATHER: , HTN, STROKE MATERNAL GRAND MOTHER: , HTN, DM, BREAST CANCER PATERNAL AUNT: ALIVE LATE 50'S YRS, BREAST CANCER DX LATE 20 1 BROTHER(S) , 1 SISTER(S) . 1 SON(S) , 1 DAUGHTER(S) . DENIES COLON OR OVARIAN CANCERS. FATHER HAD PROSTATE CANCER. SOCIAL HISTORY GENERAL: TOBACCO USE ARE YOU A:NONSMOKER NEVER SMOKER HIV / HEP-C SCREENING HIV TEST OFFERED TO PATIENT:YES DATE OFFERED:01/14/2019 TEST ACCEPTED:NO REASON:PATIENT DECLINED BROCHURE PROVIDED TO PATIENTNO OTHERS AT HOME: BOYFRIEND. HOUSING: OWNS HOME. EDUCATION LEVEL OF EDUCATION:HIGH SCHOOL DIET: NO HX EATING DISORDERS. LANGUAGE [place]AST [place]. DOMESTIC VIOLENCE DO YOU FEEL SAFE IN YOUR ENVIRONMENT?YES RECREATIONAL DRUG USE DENIES. EXERCISE: NO REGULAR EXERCISE SOME WALKING. LEARNING BARRIERS / SPECIAL NEEDS CHANGE FROM LAST VISIT?NO BARRIERS TO LEARNING?NO HEARING IMPAIRED?NO VISION IMPAIRED?NO COGNITIVELY IMPAIRED?NO READINESS TO LEARN?YES LEARNING PREFERENCES?NO LEARNING CAPABILITIES PRESENT?YES EMOTIONAL BARRIERS?NO SPECIAL DEVICES?NO COMPLEX HUMAN RESOURCES MANAGER NEEDED?NO PAIN CLINIC PFS, CLERGY, PUBLIC HEALTH REFERRALS HAS THE PATIENT BEEN EDUCATED REGARDING HIS/HER PLAN OF CARE?YES HAS THE PATIENT BEEN EDUCATED REGARDING PAIN, THE RISK FOR PAIN, THE IMPORTANCE OF EFFECTIVE PAIN MANAGEMENT, AND THE PAIN ASSESSMENT PROCESS?YES LATEX QUESTIONNAIRE LATEX ALLERGY : HAVE YOU EVER DEVELOPED ANY TYPE OF REACTION AFTER HANDLING LATEX PRODUCTS SUCH RUBBER GLOVES, CONDOMS, DIAPHRAGMS, BALLOONS, SOCKS, OR UNDERWEAR?NO LATEX ALLERGY : HAVE YOU EVER DEVELOPED ANY TYPE OF REACTION DURING OR AFTER DENTAL APPOINTMENT, VAGINAL/RECTAL EXAMINATION, SURGICAL PROCEDURE, OR ANY OTHER EXPOSURE?NO LATEX RISK : HAVE YOU EVER HAD ANY DIFFICULTY BREATHING OR HIVES AFTER EATING OR HANDLING ANY FRUITS, OR VEGETABLES; SUCH KIWI, BANANAS, STONE FRUITS, OR CHESTNUTSNO LATEX RISK : DO YOU HAVE A PREVIOUS PERSONAL HISTORY OF MORE THAN NINE SURGERIES, SPINA BIFIDA, OR REPEATED CATHERIZATIONS? NO LATEX RISK : ARE YOU FREQUENTLY EXPOSED TO LATEX PRODUCTS IN YOUR OCCUPATION?NO DATE ASKED : 02/01/2019 CAFFEINE CAFFEINE USE?YES SCOTT HAS A CUP ADVANCE DIRECTIVE ADVANCE DIRECTIVE DISCUSSED WITH PATIENT:YES 02/01/19 PT DOES NOT HAVE ANY ADVANCED DIRECTIVES AND SHE DECLINED HCP INFORMATION AT THIS TIME. AD CHRISTIANITY NO ISLAM BELIEFS THAT WOULD IMPACT HEALTH CARE. MARITAL STATUS: .. ALCOHOL SCREENING DID YOU HAVE A DRINK CONTAINING ALCOHOL IN THE PAST YEAR?NO POINTS0 INTERPRETATIONNEGATIVE OCCUPATION: DISABLED. SEXUAL HX HAD SEX IN THE LAST 12 MONTHS (VAGINAL, ORAL, OR ANAL)?YES WITHMEN ONLY USE PROTECTION?NO LMP:01/11/19 HAVE YOU EVER HAD AN STD?NO REVIEWED WITH PATIENT 09/24/18 1435 JS. HOSPITALIZATION/MAJOR DIAGNOSTIC PROCEDURE REVIEW OF SYSTEMS REVIEWED BY: PROVIDER: QAMAR BRENNANP-C . CONSTITUTIONAL: ANY CHANGE IN YOUR MEDICAL CONDITION? NO . CHILLS NO . FEVER NO . INFECTION: DO YOU HAVE NEW INFECTIONS? NO . DO YOU HAVE HISTORY OF MRSA? NO . MUSCULOSKELETAL: ANY NEW PATTERNS OF PAIN OR NUMBNESS? NO . GASTROENTEROLOGY: ANY NEW CHANGE IN BOWEL CONTROL? NO . GENITOURINARY: ANY NEW CHANGE IN BLADDER CONTROL? NO . IS THERE A CHANCE YOU COULD BE ? NO . HEMATOLOGY/LYMPH: DO YOU TAKE ANY BLOOD THINNERS? (FOR EXAMPLE- COUMADIN, PLAVIX, AGGRENOX, PLATEL, PRADAXA, OR XARELTO) YES XARELTO . WHEN WAS YOUR LAST DOSE? DATE: TIME:02/01/19 1600 . NEUROLOGY: HAVE YOU FALLEN IN THE PAST 12 MONTHS? YES, A COUPLE OF TIME. LAST TIME APPROX. 2-3 WEEKS AGO, DIDN'T SEE A CEMENT STEP AND FELL__ABRASION RIGHT KNEE . ANY NEW EXTREMITY NUMBNESS OR WEAKNESS? NO . CARDIOLOGY: DO YOU HAVE A PACEMAKER OR DEFIBRILLATOR? NO . RESPIRATORY: HAVE YOU BEEN SICK IN THE PAST WEEK? NO . FEVER NO . FLU LIKE SYMPTOMS? NO . COUGH NO . INTEGUMENTARY: DO YOU HAVE ANY RASHES OR OPEN SORES? NO . ALLERGIC/IMMUNO: ARE YOU ALLERGIC TO IV DYE? NO . ANY NEW ALLERGIES? NO . PSYCHIATRIC: DO YOU HAVE THOUGHTS OF HURTING YOURSELF OR SOMEONE ELSE? NO . ARE YOU ABUSED, NEGLECTED, OR IN AN UNSAFE ENVIRONMENT? NO . ENDOCRINOLOGY: ARE YOU DIABETIC? NO . OTHER: DO YOU NEED ANY PRESCRIPTIONS? YES . IF YES, PLEASE LIST: NOT SURE . ANY NEW PROBLEMS WITH YOUR MEDICATIONS? YES, THE BACLOFEN ISN'T WORKING , ? NEED A HIGHER DOSE OR CHANGE IT . WHEN DID YOU LAST EAT? ____ . WHEN DID YOU LAST DRINK? ____ . WHAT DID YOU LAST DRINK? ____ . NAME OF PERSON DRIVING YOU HOME? ____ . DO YOU HAVE ANY OTHER QUESTIONS OR CONCERNS YES, BACLOFEN NOT HELPING NOW, ? CHANGE DOSE OR GIVE SOMETHING ELSE . VITAL SIGNS WT 133.4 LBS, HT 62 IN, BMI 24.40 INDEX, BP 100/72 MM HG, HR 113 /MIN, RR 18 /MIN, TEMP 97.6 F, OXYGEN SAT % 97%, NA INITIALS AW 1440. EXAMINATION GENERAL EXAMINATION: GENERALNO ACUTE DISTRESS, WELL NOURISHED AND HYDRATED. PSYCHAPPROPRIATE MOOD AND AFFECT . LUNGS:CLEAR TO AUSCULTATION BILATERALLY, NO WHEEZES, RHONCHI, RALES. HEART:NO MURMURS, REGULAR RATE AND RHYTHM. ASSESSMENTS MYALGIA, OTHER SITE - M79.18 (PRIMARY) TREATMENT MYALGIA, OTHER SITE INCREASE BACLOFEN TABLET, 20 MG, 1 TAB, ORALLY, THREE TIMES DAILY, 60 DAYS, 180 CLINICAL NOTES: 48 YEAR OLD FEMALE IN FOR MEDICATION FOLLOW UP. GIVEN PRESENTING SYMPTOMS AND RESULTS OF PHYSICAL EXAMINATION RECOMMENDED INCREASING BACLOFEN WITH FOLLOW UP IN 2 MONTHS. PATIENT HAS EXPRESSED UNDERSTANDING OF AND WAS IN AGREEMENT WITH TREATMENT PLAN. GIVEN TIME TO ASK QUESTIONS AND EXPRESS CONCERNS. PROCEDURE CODES FA211 ESTABILISHED PATIENT [facility] CHARGE DISPOSITION & COMMUNICATION FOLLOW UP 2 MONTHS (REASON: CHRONIC PAIN ) ELECTRONICALLY SIGNED BY TIFFANIE KLEIN ON 02/03/2019 AT 10:24 AM EDT DISCLAIMER : THIS IS A VISIT SUMMARY EXTRACTED FROM THE [employer] CHART. IT IS NOT A COPY OF THE [employer] PROGRESS NOTE. ANGELINA
== END ==
LOC: M PAIN 14:30
PROVIDERS: ATTEND Family Medicine
DX: M79.18 Myalgia, other site (principal); G43.909 Migraine, unspecified, not intractable, without status migrainosus; R73.01 Impaired fasting glucose; E53.8 Deficiency of other specified B group vitamins; E78.5 Hyperlipidemia, unspecified; Z86.59 Personal history of other mental and behavioral disorders; G47.00 Insomnia, unspecified; I10 Essential (primary) hypertension; Z86.711 Personal history of pulmonary embolism; Z88.8 Allergy status to other drugs, medicaments and biological substances; Z79.01 Long term (current) use of anticoagulants; Z79.899 Other long term (current) drug therapy

== ENCOUNTER → 2019-04-02 | Outpatient (CLI) | payer MEDICARE, MEDICAID ==
--- NOTE | 2019-04-12 12:28 | ECWPNPC ---
PATIENT NAME: KAHLIL THAPA : 1970 GENDER: FEMALE VISIT DATE: 04/02/2019 DISCHARGE DATE: 04/02/19 1551 VISIT LOCKED DATE TIME: PHYSICIAN: JENNY PACHECO PHYSICIAN PAGER NO: [phone] RESOURCE: JENNY PACHECO REASON FOR APPOINTMENT 1. 2 MONTHS HISTORY OF PRESENT ILLNESS HISTORY OF PRESENT ILLNESS: PAIN THE PATIENT DESCRIBES THE PAIN... 48-YEAR-OLD FEMALE IN FOR CHRONIC PAIN FOLLOW-UP. SHE DOES ADMIT SHE FEELS THE BACLOFEN HAS BEEN INEFFECTIVE IN CONTROLLING HER MUSCLE SPASMS. SHE RATES HER PAIN CURRENTLY AT A 7 OUT OF 10 AND DESCRIBES IT SHOOTING. FALL RISK SCREENING: SCREENING :NO FALLS REPORTED IN THE LAST YEAR CURRENT MEDICATIONS TAKING LAMOTRIGINE 100 MG TABLET 1 TABLET ORALLY TWICE A DAY TAKING VITAMIN B-12 1000 MCG TABLET 1 TABLET ORALLY ONCE A DAY TAKING TOPIRAMATE 100 MG TABLET 1 TABLET ORALLY TWICE A DAY TAKING RELPAX 40 MG TABLET 1 TABLET NEEDED ONE TIME ORALLY ONCE A DAY PRN MIGRAINE TAKING SEROQUEL 300 MG TABLET 2 TABLET ORALLY BEFORE BEDTIME TAKING LATUDA 80 MG TABLET 2 TABLET ORALLY BEFORE BEDTIME TAKING PAXIL 40 MG TABLET 1 TABLET IN THE MORNING ORALLY ONCE A DAY, NOTES: 1000 TAKING XARELTO 20 MG TABLET TAKE ONE TABLET BY MOUTH ONCE A DAY WITH FOOD ORAL TAKING PRAZOSIN HCL 2 MG CAPSULE TAKE ONE CAPSULE BY MOUTH AT BEDTIME MAXIMUM DAILY DOSE 1 ORAL TAKING NEXPLANON 68 MG IMPLANT DIRECTED SUBCUTANEOUS TAKING BACLOFEN 20 MG TABLET 1 TAB ORALLY THREE TIMES DAILY TAKING LORAZEPAM 1 MG TABLET 1 TABLET AT BEDTIME NEEDED ORALLY THREE TIMES DAILY NOT-TAKING CLONAZEPAM 1 MG TABLET 1 TABLET ORAL NEED NOT-TAKING ERGOCALCIFEROL 47963 UNIT CAPSULE 1 CAPSULE ORALLY EVERY 7 DAYS NOT-TAKING VRAYLAR 1.5 MG CAPSULE TAKE ONE CAPSULE BY MOUTH EVERY DAY ORAL NOT-TAKING SPRINTEC 28 0.25-35 MG-MCG TABLET 1 TABLET ORALLY ONCE A DAY MEDICATION LIST REVIEWED AND RECONCILED WITH THE PATIENT PAST MEDICAL HISTORY MIGRAINE HEADACHES, COMMON TYPE-01/2011, 12/[address] OF THE BRAIN/ NORMAL MRI BRAIN S CONTRAST BILATERAL SUPRASPINATUS TENDINITIS-JULY 2011 NORMAL BILATERAL SHOULDER X-RAY/APRIL 2011 NEGATIVE RHEUMATOID FACTOR, RACHEL IMPAIRED FASTING GLUCOSE, GEST DM WITH 2ND PREG B12 DEFICIENCY HYPERLIPIDEMIA 2B DEPRESSION/ANXIETY DISORDER/INSOMNIA BIPOLAR DISORDER FIBROCYSTIC BREAST DISEASE INSOMNIA BPV HYPERTENSION-02/2014 NORMAL 24H URINE FOR METANEPHRINES/CATECHOLAMINES, UFC, ALODSTERONE, NA CERVICAL SPONDYLOSIS-MILD ML, BERONICA C56 C SMALL CENTRAL FOCAL HNP C MILD B UNCO SPUR BY 03/2018 MRI H/O YANELY III S/P LEEP L DISTAL TIBIA/FIBULA CLOSED FRACTURE SP 09/2017 MECHANICAL FALL-CASTED BY DR. AMADO NCOG PINEAL CYST NAFLD-DIFFUSE FATTY INFILTRATION C FOCAL DEPOSITION IN MEDIAL SEGMENT OF L LOBE AT SITE ? NODULE BY 03/2017 CT AP-SEEN BY 03/2017 MRI ABD S/C VERÓNICA PULMONARY EMBOLISM NECK PAIN ALLERGIES ESTRADIOL: CONTRAINDICATION SURGICAL HISTORY COLPOSCOPY 08/11/2015 & 08/26/2016 LEEP 09/07/15 FAMILY HISTORY FATHER: ALIVE 67 YRS, HTN, PROSTATE CANCER, ENLARGED HEART MOTHER: ALIVE 65 YRS, DM, HYSTERECTOMY, CIRRHOSIS, DIAGNOSED WITH DIABETES IN 2, OTHER SPECIFIED CONDITIONS INFLUENCING HEALTH STATUS SIBLINGS: ALIVE 41, 34 YRS, SISTER-THYROID DISORDER, BROTHER-HEALTHY SON(S): ALIVE 13 YRS, ASTHMA DAUGHTER(S): ALIVE 15 YRS, NEUROCARDIOGENIC SYNCOPE PATERNAL GRAND FATHER: , HTN, DM PATERNAL GRAND MOTHER: , HTN, DM, PANCREATIC CANCER MATERNAL GRAND FATHER: , HTN, STROKE MATERNAL GRAND MOTHER: , HTN, DM, BREAST CANCER PATERNAL AUNT: ALIVE LATE 50'S YRS, BREAST CANCER DX LATE 20 1 BROTHER(S) , 1 SISTER(S) . 1 SON(S) , 1 DAUGHTER(S) . DENIES COLON OR OVARIAN CANCERS. FATHER HAD PROSTATE CANCER. SOCIAL HISTORY GENERAL: TOBACCO USE ARE YOU A:NONSMOKER NEVER SMOKER HIV / HEP-C SCREENING HIV TEST OFFERED TO PATIENT:YES DATE OFFERED:01/14/2019 TEST ACCEPTED:NO REASON:PATIENT DECLINED BROCHURE PROVIDED TO PATIENTNO OTHERS AT HOME: BOYFRIEND. HOUSING: OWNS HOME. EDUCATION LEVEL OF EDUCATION:HIGH SCHOOL DIET: NO HX EATING DISORDERS. 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 DOMESTIC VIOLENCE DO YOU FEEL SAFE IN YOUR ENVIRONMENT?YES RECREATIONAL DRUG USE DENIES. EXERCISE: NO REGULAR EXERCISE SOME WALKING. LEARNING BARRIERS / SPECIAL NEEDS CHANGE FROM LAST VISIT?NO BARRIERS TO LEARNING?NO HEARING IMPAIRED?NO VISION IMPAIRED?NO COGNITIVELY IMPAIRED?NO READINESS TO LEARN?YES LEARNING PREFERENCES?NO LEARNING CAPABILITIES PRESENT?YES EMOTIONAL BARRIERS?NO SPECIAL DEVICES?NO PER DIEM RN NEEDED?NO PAIN CLINIC PFS, CLERGY, PUBLIC HEALTH REFERRALS HAS THE PATIENT BEEN EDUCATED REGARDING HIS/HER PLAN OF CARE?YES HAS THE PATIENT BEEN EDUCATED REGARDING PAIN, THE RISK FOR PAIN, THE IMPORTANCE OF EFFECTIVE PAIN MANAGEMENT, AND THE PAIN ASSESSMENT PROCESS?YES LATEX QUESTIONNAIRE LATEX ALLERGY : HAVE YOU EVER DEVELOPED ANY TYPE OF REACTION AFTER HANDLING LATEX PRODUCTS SUCH RUBBER GLOVES, CONDOMS, DIAPHRAGMS, BALLOONS, SOCKS, OR UNDERWEAR?NO LATEX ALLERGY : HAVE YOU EVER DEVELOPED ANY TYPE OF REACTION DURING OR AFTER DENTAL APPOINTMENT, VAGINAL/RECTAL EXAMINATION, SURGICAL PROCEDURE, OR ANY OTHER EXPOSURE?NO DATE ASKED : 02/01/2019 LATEX RISK : HAVE YOU EVER HAD ANY DIFFICULTY BREATHING OR HIVES AFTER EATING OR HANDLING ANY FRUITS, OR VEGETABLES; SUCH KIWI, BANANAS, STONE FRUITS, OR CHESTNUTSNO LATEX RISK : DO YOU HAVE A PREVIOUS PERSONAL HISTORY OF MORE THAN NINE SURGERIES, SPINA BIFIDA, OR REPEATED CATHERIZATIONS? NO LATEX RISK : ARE YOU FREQUENTLY EXPOSED TO LATEX PRODUCTS IN YOUR OCCUPATION?NO CAFFEINE CAFFEINE USE?YES SCOTT HAS A CUP ADVANCE DIRECTIVE ADVANCE DIRECTIVE DISCUSSED WITH PATIENT:YES 02/01/19 PT DOES NOT HAVE ANY ADVANCED DIRECTIVES AND SHE DECLINED HCP INFORMATION AT THIS TIME. AD BAPTIST NO CHRISTIAN BELIEFS THAT WOULD IMPACT HEALTH CARE. MARITAL STATUS: .. ALCOHOL SCREENING DID YOU HAVE A DRINK CONTAINING ALCOHOL IN THE PAST YEAR?NO POINTS0 INTERPRETATIONNEGATIVE OCCUPATION: DISABLED. SEXUAL HX HAD SEX IN THE LAST 12 MONTHS (VAGINAL, ORAL, OR ANAL)?YES WITHMEN ONLY USE PROTECTION?NO LMP:01/11/19 HAVE YOU EVER HAD AN STD?NO REVIEWED WITH PATIENT 09/24/18 1435 JSREVIEWED WITH PATIENT 04/02/19 1519 NLJ. HOSPITALIZATION/MAJOR DIAGNOSTIC PROCEDURE REVIEW OF SYSTEMS REVIEWED BY: PROVIDER: QAMAR MORENO-Luiz . CONSTITUTIONAL: ANY CHANGE IN YOUR MEDICAL CONDITION? NO . CHILLS NO . FEVER NO . INFECTION: DO YOU HAVE NEW INFECTIONS? NO . DO YOU HAVE HISTORY OF MRSA? NO . MUSCULOSKELETAL: ANY NEW PATTERNS OF PAIN OR NUMBNESS? YES- STATES THE PAIN IS THE SAME, STATES SHE FEELS LIKE THE BACLOFEN IS NOT HELPING . GASTROENTEROLOGY: ANY NEW CHANGE IN BOWEL CONTROL? NO . GENITOURINARY: ANY NEW CHANGE IN BLADDER CONTROL? NO . IS THERE A CHANCE YOU COULD BE ? NO . HEMATOLOGY/LYMPH: DO YOU TAKE ANY BLOOD THINNERS? (FOR EXAMPLE- COUMADIN, PLAVIX, AGGRENOX, PLATEL, PRADAXA, OR XARELTO) YES- XARELTO . WHEN WAS YOUR LAST DOSE? DATE:04/01/19 TIME: 1600 . NEUROLOGY: HAVE YOU FALLEN IN THE PAST 12 MONTHS? NO . ANY NEW EXTREMITY NUMBNESS OR WEAKNESS? NO . CARDIOLOGY: DO YOU HAVE A PACEMAKER OR DEFIBRILLATOR? NO . RESPIRATORY: HAVE YOU BEEN SICK IN THE PAST WEEK? NO . FEVER NO . FLU LIKE SYMPTOMS? NO . COUGH NO . INTEGUMENTARY: DO YOU HAVE ANY RASHES OR OPEN SORES? NO . ALLERGIC/IMMUNO: ARE YOU ALLERGIC TO IV DYE? NO . ANY NEW ALLERGIES? NO . PSYCHIATRIC: DO YOU HAVE THOUGHTS OF HURTING YOURSELF OR SOMEONE ELSE? NO . ARE YOU ABUSED, NEGLECTED, OR IN AN UNSAFE ENVIRONMENT? NO . ENDOCRINOLOGY: ARE YOU DIABETIC? NO . OTHER: DO YOU NEED ANY PRESCRIPTIONS? YES- A HGHER DOSE OF BACLOFEN OR CHANGE TO A HIGHER DOSE . IF YES, PLEASE LIST: ____ . ANY NEW PROBLEMS WITH YOUR MEDICATIONS? NO . WHEN DID YOU LAST EAT? ____ . WHEN DID YOU LAST DRINK? ____ . WHAT DID YOU LAST DRINK? ____ . NAME OF PERSON DRIVING YOU HOME? ____ . DO YOU HAVE ANY OTHER QUESTIONS OR CONCERNS YES- SATTES SHE WILL BE GETTING A FLU SHOT . VITAL SIGNS WT 134.4 LBS, HT 62 IN, BMI 24.58 INDEX, BP 100/70 MM HG, HR 89 /MIN, RR 18 /MIN, TEMP 98.4 F, OXYGEN SAT % 100%, SAFE IN ENV? (Y/N) YES, NA INITIALS AK 15:27, REVIEWED BY: RITU. EXAMINATION GENERAL EXAMINATION: GENERALNO ACUTE DISTRESS, WELL NOURISHED AND HYDRATED. PSYCHAPPROPRIATE MOOD AND AFFECT . LUNGS:CLEAR TO AUSCULTATION BILATERALLY, NO WHEEZES, RHONCHI, RALES. HEART:NO MURMURS, REGULAR RATE AND RHYTHM. ASSESSMENTS MYALGIA, OTHER SITE - M79.18 (PRIMARY) TREATMENT MYALGIA, OTHER SITE START METHOCARBAMOL TABLET, 500 MG, 1.5 TABLETS, ORALLY, EVERY 4 HRS, 30 DAY(S), 270 CLINICAL NOTES: 48-YEAR-OLD FEMALE IN FOR CHRONIC PAIN FOLLOW-UP. SHE DOES ADMIT THAT THE BACLOFEN HAS BEEN INEFFECTIVE IN CONTROLLING HER MUSCLE SPASMS. GIVEN PRESENTING SYMPTOMS AND RESULTS OF PHYSICAL EXAMINATION RECOMMENDED METHOCARBAMOL 500 MG 4 TIMES A DAY NEEDED FOR MUSCLE SPASMS. PATIENT HAS EXPRESSED UNDERSTANDING OF AND WAS IN AGREEMENT WITH TREATMENT PLAN. GIVEN TIME TO ASK QUESTIONS AND EXPRESS CONCERNS. PREVENTIVE MEDICINE PAIN CLINIC TEACHING: MEDICATIONS METHOCARBOMOL MEDICATION INFORMTION PRNTED AND REVIEWED WITH PATIENT 04/02/19 1548 [facility]. DISPOSITION & COMMUNICATION FOLLOW UP 4 WEEKS (REASON: MEDICATION CHANGE) ELECTRONICALLY SIGNED BY TIFFANIE KLEIN ON 04/05/2019 AT 01:21 PM EDT DISCLAIMER : THIS IS A VISIT SUMMARY EXTRACTED FROM THE [employer] CHART. IT IS NOT A COPY OF THE [employer] PROGRESS NOTE. ANGELINA
== END ==
LOC: M PAIN 14:30
PROVIDERS: ATTEND Family Medicine
DX: M79.18 Myalgia, other site (principal); G43.909 Migraine, unspecified, not intractable, without status migrainosus; R73.01 Impaired fasting glucose; E78.5 Hyperlipidemia, unspecified; Z86.59 Personal history of other mental and behavioral disorders; G47.00 Insomnia, unspecified; I10 Essential (primary) hypertension; Z88.8 Allergy status to other drugs, medicaments and biological substances; Z79.899 Other long term (current) drug therapy

== ENCOUNTER → 2019-04-26 | Outpatient (REF) | payer MEDICARE, MEDICAID ==
[2019-04-26 15:42] LABS: BASO % 0.8 % (0.0-1.0); EOS # 0.1 10^3/uL (0.0-0.5); HEMATOCRIT 40.3 % (36.0-47.0); HEMOGLOBIN 12.8 g/dl (12.0-15.5); LYMPH # 1.4 10^3/uL (1.5-5.0); LYMPH % 28.6 % (24.0-44.0); MEAN CORPUSCULAR HEMOGLOBIN 29.4 pg (27.0-33.0); MEAN CORPUSCULAR HGB CONC 31.8 g/dl (32.0-36.5); MEAN CORPUSCULAR VOLUME 92.4 fl (80.0-96.0); MONO # 0.4 10^3/uL (0.0-0.8); MONO % 8.8 % (0.0-5.0); NEUTROPHILS # 2.9 10^3/uL (1.5-8.5); NEUTROPHILS % 58.8 % (36.0-66.0); PLATELET COUNT, AUTOMATED 257 10^3/uL (150-450); RED BLOOD COUNT 4.36 10^6/uL (4.00-5.40)
[2019-04-26 15:46] LABS: ALBUMIN 4.1 GM/DL (3.2-5.2); ALT/SGPT 30 U/L (12-78); BILIRUBIN,TOTAL 0.2 MG/DL (0.2-1.0); BLOOD UREA NITROGEN 12 MG/DL (7-18); C REACTIVE PROTEIN QUANTITATIV 0.35 MG/DL (0.00-0.30); CALCIUM LEVEL 8.8 MG/DL (8.5-10.1); CARBON DIOXIDE LEVEL 23 MEQ/L (21-32); CHLORIDE LEVEL 112 MEQ/L (98-107); CHOLESTEROL LEVEL 264 MG/DL (<200); CHOLESTEROL RISK RATIO 7.135 (<5); CPK CREATINE PHOSPHOKINASE 46 U/L (26-192); CREATININE FOR GFR 0.91 MG/DL (0.55-1.30); GLOMERULAR FILTRATION RATE > 60.0 (>58); GLUCOSE, FASTING 98 MG/DL (70-100); HDL CHOLESTEROL 37 MG/DL (>40); LDL CHOLESTEROL 154 MG/DL (<100); NON-HDL-C 227 MG/DL; POTASSIUM SERUM 3.9 MEQ/L (3.5-5.1); SODIUM LEVEL 143 MEQ/L (136-145); TOTAL PROTEIN 7.3 GM/DL (6.4-8.2); TRIGLYCERIDES LEVEL 365 MG/DL (<150)
[2019-04-27 10:15] LABS: DRVV SCREEN 61.8 SEC
[2019-04-27 10:16] LABS: PTT LUPUS TYPE ANTICOAG SCREEN 1.5 (0-1.2)
[2019-04-27 10:24] LABS: DRVV CONFIRM 44.1 SEC; LUPUS CONFIRM RATIO 1.2
[2019-04-27 10:25] LABS: NORMALIZED RATIO 1.25 (0.00-1.20)
[2019-04-29 14:13] LABS: HEXAGONAL PHASE PHOSPHOLIPID 0 sec (0-11)
[2019-05-04 00:06] LABS: BETA-2 GLYCOPROTEIN I ABY IGA <9 (0-25); BETA-2 GLYCOPROTEIN I ABY IGG <9 (0-20); BETA-2 GLYCOPROTEIN I ABY IGM <9 (0-32); CARDIOLIPIN IGA ANTIBODY <9 APL U/mL (0-11); CARDIOLIPIN IGG ANTIBODY <9 GPL U/mL (0-14); CARDIOLIPIN IGM ANTIBODY <9 MPL U/mL (0-12)
== END ==
LOC: M SFHCPLAZ 12:31
PROVIDERS: ATTEND Family Medicine
DX: I26.93 Single subsegmental thrombotic pulmonary embolism without acute cor pulmonale (principal); E78.2 Mixed hyperlipidemia
CPT/HCPCS: 36415; 80053; 80061; 81240; 82550; 84439; 84443; 85025; 85598; 85613; 85730; 86140; 86146; 86147; 90682; G0008; G0463

== ENCOUNTER → 2019-08-03 | Outpatient (REF) | payer MEDICARE, MEDICAID ==
[~2019-08-03] MED LIST changes: -LAMO100T; +LAMO100T3; -MECL-68 PO; +MECL1TAB31 PO; +OMEP1CAP73; -OMEP20CA4; +QUET100T2; -QUET1TAB8
[2019-08-03 10:19] LABS: BLOOD UREA NITROGEN 19 MG/DL (7-18); CALCIUM LEVEL 8.8 MG/DL (8.5-10.1); CARBON DIOXIDE LEVEL 25 MEQ/L (21-32); CHLORIDE LEVEL 112 MEQ/L (98-107); CREATININE FOR GFR 1.02 MG/DL (0.55-1.30); GLOMERULAR FILTRATION RATE > 60.0 (>58); GLUCOSE, FASTING 92 MG/DL (70-100); POTASSIUM SERUM 3.3 MEQ/L (3.5-5.1); SODIUM LEVEL 143 MEQ/L (136-145)
== END ==
LOC: M SFHCPLAZ 08:04
PROVIDERS: ATTEND Nurse Practitioner Family
DX: I26.93 Single subsegmental thrombotic pulmonary embolism without acute cor pulmonale (principal)
CPT/HCPCS: 36415; 80048; 85379; G0463

== ENCOUNTER → 2019-08-05 | Outpatient (CLI) | payer MEDICARE, MEDICAID ==
[~2019-08-05] MED LIST changes: +ISOVUE-370 76% 100ML VIAL (Q9967) As Ordered ONE
--- NOTE | 2019-08-05 16:23 | REP ---
Clinical: History of pulmonary embolus. Comparison: 12/02/2018. Technique: Axial contrast enhanced images from the thoracic inlet to the upper abdomen using 100 ml Isovue 370 intravenous contrast material with multiplanar re-formations. Findings: Satisfactory enhancement of the pulmonary vasculature is achieved and no filling defects are identified to suggest pulmonary embolus. Previously noted right lower lobe pulmonary embolus has resolved. The bilateral lung broderick demonstrate subtle patchy infiltrates in the basilar right upper lobe suggesting an acute pneumonia and correlation is recommended. No effusion. No pneumothorax. Remainder of lung broderick are clear. Tracheobronchial tree is patent. Further evaluation of the mediastinum demonstrates normal thoracic aorta and heart/pericardium. Musculoskeletal structures are intact. Impression: 1. No evidence for pulmonary embolus. Previous right lower lobe embolus has resolved. 2. Subtle patchy infiltrates in the basilar right upper lobe consistent with pneumonia and correlation is recommended. Electronically Signed by Lorenzo Ramsey MD 08/05/2019 04:15 P
== END ==
LOC: M RAD 15:00
PROVIDERS: ATTEND Nurse Practitioner Family
DX: I26.93 Single subsegmental thrombotic pulmonary embolism without acute cor pulmonale (principal)
CPT/HCPCS: 71275; Q9967

== ENCOUNTER → 2019-12-14 | Outpatient (CLI) | payer MEDICARE, MEDICAID ==
[~2019-12-14] MED LIST changes: -ISOVUE-370 76% 100ML VIAL (Q9967) As Ordered ONE
--- NOTE | 2019-12-16 01:11 | ECWPNPC ---
PATIENT NAME: KAHLIL THAPA : 1970 GENDER: FEMALE VISIT DATE: 12/14/2019 DISCHARGE DATE: 12/14/19 1049 VISIT LOCKED DATE TIME: PHYSICIAN: JENNY PACHECO PHYSICIAN PAGER NO: [phone] RESOURCE: JENNY PACHECO REASON FOR APPOINTMENT 1. NECK HISTORY OF PRESENT ILLNESS GENERAL: - 49-YEAR-OLD FEMALE IN FOR CHRONIC PAIN FOLLOW-UP. SHE RATES HER PAIN CURRENTLY AT AN 8 OUT OF 10 AND DESCRIBES IT SHOOTING. SHE FEELS THE TIZANIDINE IS HELPFUL BUT QUESTIONS IF AN INCREASE WOULD BE MORE BENEFICIAL. FALL RISK SCREENING: SCREENING :NO FALLS REPORTED IN THE LAST YEAR PAIN SCREENING: PATIENT HAS A COMPLAINT OF ACUTE OR CHRONIC PAIN :YES LOCATION OF PAIN:NECK INTENSITY OF PAIN (SCALE OF 1 TO 10):8 WHAT DOES YOUR PAIN FEEL LIKE:SHOOTING DURATION:ONLY WITH SPECIFIC ACTIVITIES, INTERMITTENT PAIN IS INCREASED BY:ACTIVITIES PAIN IS DECREASED BY:USE OF PAIN MEDICATIONS COLD WASH CLOTH APPLIED PAIN HAS INTERFERED WITH THE FOLLOWING:MOOD, RELATIONSHIP WITH OTHERS, ENJOYMENT OF LIFE PLAN/GOALS/TREATMENT/INTERVENTION/FOLLOW UP:SEE PLAN NURSING NOTE: -. PAIN CENTER INTAKE QUESTIONS: DO YOU HAVE A HISTORY OF MRSA? :NO DO YOU TAKE A BLOOD THINNERS? :YES SERGE,12/11/19@ 6PM DO YOU HAVE ANY BLEEDING DISORDERS? :NO ANY NEW NUMBNESS OR WEAKNESS IN YOUR LEGS OR ARMS? :NO ANY PACEMAKER,DEFIBRILLATOR, OR DORSAL COLUMN STIMULATOR? :NO DO YOU HAVE ANY RASHES OR OPEN SORES? :NO ARE YOU ALLERGIC TO IV DYE? :NO ARE YOU DIABETIC? :NO ANY NEW PROBLEMS WITH YOUR MEDICATIONS? :NO HAVE YOU RECEIVED A VACCINE IN THE PAST 30 DAYS? :NO DO YOU PLAN TO RECEIVE A VACCINE IN THE NEXT 21 DAYS? :NO DO YOU NEED ANY PRESCRIPTION? :NO DO YOU TAKE ANY IMMUNOSUPPRESSIVE MEDICATIONS? :NO IS THERE A CHANCE YOU COULD BE ? :NO ARE YOU BREAST FEEDING? :NO CURRENT MEDICATIONS TAKING VITAMIN B-12 1000 MCG TABLET 1 TABLET ORALLY ONCE A DAY TAKING NEXPLANON 68 MG IMPLANT DIRECTED SUBCUTANEOUS TAKING LATUDA 80 MG TABLET 2 TABLET ORALLY BEFORE BEDTIME TAKING PAXIL 40 MG TABLET 1 TABLET IN THE MORNING ORALLY ONCE A DAY, NOTES: 1000 TAKING PRAZOSIN HCL 2 MG CAPSULE TAKE ONE CAPSULE BY MOUTH AT BEDTIME MAXIMUM DAILY DOSE 1 ORAL TAKING LORAZEPAM 1 MG TABLET 1 TABLET AT BEDTIME NEEDED ORALLY THREE TIMES DAILY TAKING LAMOTRIGINE 100 MG TABLET 1 TABLET ORALLY TWICE A DAY TAKING SEROQUEL 300 MG TABLET 2 TABLET ORALLY BEFORE BEDTIME TAKING XARELTO 20 MG TABLET 1 TABLET ORAL ONCE A DAY TAKING CEFDINIR 300 MG CAPSULE 1 CAP ORALLY BID TAKING EZETIMIBE 10 MG TABLET 1 TABLET ORALLY ONCE A DAY TAKING RELPAX 40 MG TABLET 1 TABLET NEEDED ONE TIME ORALLY ONCE A DAY PRN MIGRAINE TAKING ERGOCALCIFEROL 60861 UNIT CAPSULE 1 CAPSULE ORALLY EVERY 7 DAYS TAKING ROSUVASTATIN CALCIUM 20 MG TABLET 1 TABLET ORALLY ONCE A DAY TAKING TOPIRAMATE 100 MG TABLET 1 TABLET ORALLY TWICE A DAY TAKING TIZANIDINE HCL 4 MG TABLET 1 TABLET NEEDED ORALLY THREE TIMES A DAY MEDICATION LIST REVIEWED AND RECONCILED WITH THE PATIENT PAST MEDICAL HISTORY MIGRAINE HEADACHES, COMMON TYPE-01/2011, 12/[address] OF THE BRAIN/ NORMAL MRI BRAIN S CONTRAST BILATERAL SUPRASPINATUS TENDINITIS-JULY 2011 NORMAL BILATERAL SHOULDER X-RAY/APRIL 2011 NEGATIVE RHEUMATOID FACTOR, RACHEL IMPAIRED FASTING GLUCOSE, GEST DM WITH 2ND PREG B12 DEFICIENCY HYPERLIPIDEMIA 2B BIPOLAR DISORDER/INSONMIA/VERÓNICA FIBROCYSTIC BREAST DISEASE INSOMNIA BPV HYPERTENSION-02/2014 NORMAL 24H URINE FOR METANEPHRINES/CATECHOLAMINES, UFC, ALODSTERONE, NA CERVICAL SPONDYLOSIS-MILD ML, BERONICA C56 C SMALL CENTRAL FOCAL HNP C MILD B UNCO SPUR BY 03/2018 MRI H/O YANELY III S/P LEEP L DISTAL TIBIA/FIBULA CLOSED FRACTURE SP 09/2017 MECHANICAL FALL-CASTED BY DR. AMADO NCOG PINEAL CYST NAFLD-DIFFUSE FATTY INFILTRATION C FOCAL DEPOSITION IN MEDIAL SEGMENT OF L LOBE AT SITE ? NODULE BY 03/2017 CT AP-SEEN BY 03/2017 MRI ABD S/C VERÓNICA 12/02/18 CTA CHEST SINGLE 4 MM PE IN PROXIMAL SEGMENTAL OF RLL MEDIAL BASILAR SEGMENT PA; THEREFORE, + RIVAROX LOAD/RX X 6M AND DCED OCP + [place], NORMAL PC/PS/ATIII FUNCTION, -FVL-11/2018 CONSTIPATION, CHRONIC-12/2018 CT AP LARGE PANCOLONIC FECAL RETENTION ALLERGIES ESTRADIOL: CONTRAINDICATION SURGICAL HISTORY COLPOSCOPY 08/11/2015 & 08/26/2016 LEEP 09/07/15 FAMILY HISTORY FATHER: ALIVE 67 YRS, HTN, PROSTATE CANCER, ENLARGED HEART MOTHER: ALIVE 65 YRS, DM, HYSTERECTOMY, CIRRHOSIS, DIAGNOSED WITH OTHER SPECIFIED CONDITIONS INFLUENCING HEALTH STATUS, DIABETES IN 2 SIBLINGS: ALIVE 41, 34 YRS, SISTER-THYROID DISORDER, BROTHER-HEALTHY SON(S): ALIVE 13 YRS, ASTHMA DAUGHTER(S): ALIVE 15 YRS, NEUROCARDIOGENIC SYNCOPE PATERNAL GRAND FATHER: , HTN, DM PATERNAL GRAND MOTHER: , HTN, DM, PANCREATIC CANCER MATERNAL GRAND FATHER: , HTN, STROKE MATERNAL GRAND MOTHER: , HTN, DM, BREAST CANCER PATERNAL AUNT: ALIVE LATE 50'S YRS, BREAST CANCER DX LATE 20 1 BROTHER(S) , 1 SISTER(S) . 1 SON(S) , 1 DAUGHTER(S) . DENIES COLON OR OVARIAN CANCERS. FATHER HAD PROSTATE CANCER. SOCIAL HISTORY GENERAL: TOBACCO USE ARE YOU A:NONSMOKER NEVER SMOKER LATEX QUESTIONNAIRE LATEX ALLERGY : HAVE YOU EVER DEVELOPED ANY TYPE OF REACTION AFTER HANDLING LATEX PRODUCTS SUCH RUBBER GLOVES, CONDOMS, DIAPHRAGMS, BALLOONS, SOCKS, OR UNDERWEAR?NO LATEX ALLERGY : HAVE YOU EVER DEVELOPED ANY TYPE OF REACTION DURING OR AFTER DENTAL APPOINTMENT, VAGINAL/RECTAL EXAMINATION, SURGICAL PROCEDURE, OR ANY OTHER EXPOSURE?NO LATEX RISK : HAVE YOU EVER HAD ANY DIFFICULTY BREATHING OR HIVES AFTER EATING OR HANDLING ANY FRUITS, OR VEGETABLES; SUCH KIWI, BANANAS, STONE FRUITS, OR CHESTNUTSNO LATEX RISK : DO YOU HAVE A PREVIOUS PERSONAL HISTORY OF MORE THAN NINE SURGERIES, SPINA BIFIDA, OR REPEATED CATHERIZATIONS? NO LATEX RISK : ARE YOU FREQUENTLY EXPOSED TO LATEX PRODUCTS IN YOUR OCCUPATION?NO DATE ASKED : 12/14/2019 ALCOHOL SCREENING DID YOU HAVE A DRINK CONTAINING ALCOHOL IN THE PAST YEAR?NO POINTS0 INTERPRETATIONNEGATIVE RECREATIONAL DRUG USE DENIES. CAFFEINE CAFFEINE USE?YES AILY HAS A CUP SEXUAL HX HAD SEX IN THE LAST 12 MONTHS (VAGINAL, ORAL, OR ANAL)?YES WITHMEN ONLY USE PROTECTION?NO LMP:01/11/19 HAVE YOU EVER HAD AN STD?NO HIV / HEP-C SCREENING HIV TEST OFFERED TO PATIENT:YES DATE OFFERED:01/14/2019 TEST ACCEPTED:NO REASON:PATIENT DECLINED BROCHURE PROVIDED TO PATIENTNO YAZIDI NO LUTHERAN BELIEFS THAT WOULD IMPACT HEALTH CARE. LANGUAGE LATVIAN. EDUCATION LEVEL OF EDUCATION:HIGH SCHOOL LEARNING BARRIERS / SPECIAL NEEDS CHANGE FROM LAST VISIT?NO BARRIERS TO LEARNING?NO HEARING IMPAIRED?NO VISION IMPAIRED?NO COGNITIVELY IMPAIRED?NO READINESS TO LEARN?YES LEARNING PREFERENCES?NO LEARNING CAPABILITIES PRESENT?YES EMOTIONAL BARRIERS?NO SPECIAL DEVICES?NO PHYSICIAN INTERNIST NEEDED?NO DOMESTIC VIOLENCE DO YOU FEEL SAFE IN YOUR ENVIRONMENT?YES OCCUPATION: DISABLED. DIET: NO HX EATING DISORDERS. EXERCISE: NO REGULAR EXERCISE SOME WALKING. MARITAL STATUS: .. OTHERS AT HOME: BOYFRIEND. PAIN CLINIC PFS, CLERGY, PUBLIC HEALTH REFERRALS HAS THE PATIENT BEEN EDUCATED REGARDING HIS/HER PLAN OF CARE?YES HAS THE PATIENT BEEN EDUCATED REGARDING PAIN, THE RISK FOR PAIN, THE IMPORTANCE OF EFFECTIVE PAIN MANAGEMENT, AND THE PAIN ASSESSMENT PROCESS?YES HOUSING: OWNS HOME. ADVANCE DIRECTIVE ADVANCE DIRECTIVE DISCUSSED WITH PATIENT:YES PT DOES NOT HAVE ANY ADVANCED DIRECTIVES AND SHE DECLINED HCP INFORMATION AT THIS TIME. AD HOSPITALIZATION/MAJOR DIAGNOSTIC PROCEDURE REVIEW OF SYSTEMS CONSTITUTIONAL: ANY RECENT FEVER NO . CHILLS NO . WEIGHT CHANGE OF UNKNOWN REASONS NO . GASTROENTEROLOGY: NEW UNEXPLAINABLE CHANGES IN BOWEL CONTROL NO . CONSTIPATION NO . GENITOURINARY: ANY NEW CHANGE IN BLADDER CONTROL? NO . NEUROLOGY: NEW ONSET DIZZINESS OR NEUROLOGICAL CHANGES NOT MENTIONED NO . NEW NUMBNESS OR PAIN PATTERNS NOT MENTIONED AND PERTINENT TO TODAY'S VISIT NO . CARDIOLOGY: NEW CHEST PRESSURE NO . NEW CHEST PAIN NO . RESPIRATORY: UNEXPLAINABLE COUGH NO . NEW SHORTNESS OF BREATH NO . VITAL SIGNS WT 161.2 LBS, HT 62 IN, BMI 29.48 INDEX, BP 90/68 MM HG, HR 85 /MIN, RR 16 /MIN, TEMP 97.2 F, OXYGEN SAT % 98%, NA INITIALS SC 10:23. EXAMINATION GENERAL EXAMINATION: GENERALNO ACUTE DISTRESS, WELL NOURISHED AND HYDRATED. PSYCHAPPROPRIATE MOOD AND AFFECT . LUNGS:CLEAR TO AUSCULTATION BILATERALLY, NO WHEEZES, RHONCHI, RALES. HEART:NO MURMURS, REGULAR RATE AND RHYTHM. ASSESSMENTS DJD (DEGENERATIVE JOINT DISEASE), CERVICAL - M50.30 (PRIMARY) TREATMENT DJD (DEGENERATIVE JOINT DISEASE), CERVICAL INCREASE TIZANIDINE HCL CAPSULE, 6 MG, 1 TABLET NEEDED, ORALLY, THREE TIMES A DAY, 30 DAYS, 90 CLINICAL NOTES: 49 YEAR OLD FEMALE IN FOR CHRONIC PAIN FOLLOW UP. GIVEN PRESENTING SYMPTOMS RECOMMEND INCREASING TIZANIDINE TO 6MG TID WITH FOLLOW UP IN 1 MONTH TO DETERMINE EFFICACY OF TREATMENT. PATIENT HAS EXPRESSED UNDERSTANDING OF AND WAS IN AGREEMENT WITH TX PLAN. GIVEN TIME TO ASK QUESTIONS AND EXPRESS CONCERNS. . PROCEDURE CODES FA211 ESTABILISHED PATIENT [facility] FACILITY CHARGE DISPOSITION & COMMUNICATION FOLLOW UP 4 WEEKS (REASON: NEW MED, ) ELECTRONICALLY SIGNED BY TIFFANIE KLEIN ON 12/15/2019 AT 08:09 AM EDT DISCLAIMER : THIS IS A VISIT SUMMARY EXTRACTED FROM THE [employer] CHART. IT IS NOT A COPY OF THE [employer] PROGRESS NOTE. ANGELINA
== END ==
LOC: M PAIN 10:30
PROVIDERS: ATTEND Family Medicine
DX: M50.30 Other cervical disc degeneration, unspecified cervical region (principal)

== ENCOUNTER → 2020-01-11 | Outpatient (REF) | payer MEDICARE, MEDICAID ==
[~2020-01-11] MED LIST changes: +CLON1TAB8; +ELET40TA; +PARO40TA2; +TIZA4TAB4; +XARE20TA; +ZOLP10TA2
[2020-01-11 13:33] LABS: BASO % 0.4 % (0.0-1.0); EOS # 0.1 10^3/uL (0.0-0.5); EOS % 2.8 % (0.0-3.0); HEMATOCRIT 41.7 % (36.0-47.0); HEMOGLOBIN 13.2 g/dl (12.0-15.5); LYMPH # 1.5 10^3/uL (1.5-5.0); LYMPH % 29.8 % (24.0-44.0); MEAN CORPUSCULAR HEMOGLOBIN 27.7 pg (27.0-33.0); MEAN CORPUSCULAR HGB CONC 31.7 g/dl (32.0-36.5); MEAN CORPUSCULAR VOLUME 87.4 fl (80.0-96.0); MONO # 0.3 10^3/uL (0.0-0.8); NEUTROPHILS # 3.1 10^3/uL (1.5-8.5); NEUTROPHILS % 60.4 % (36.0-66.0); PLATELET COUNT, AUTOMATED 229 10^3/uL (150-450); RED BLOOD COUNT 4.77 10^6/uL (4.00-5.40)
[2020-01-11 13:43] LABS: ALBUMIN 4.5 GM/DL (3.2-5.2); ALT/SGPT 35 U/L (12-78); BILIRUBIN,TOTAL 0.3 MG/DL (0.2-1.0); BLOOD UREA NITROGEN 11 MG/DL (7-18); C REACTIVE PROTEIN QUANTITATIV 1.27 MG/DL (0.00-0.30); CALCIUM LEVEL 9.2 MG/DL (8.5-10.1); CARBON DIOXIDE LEVEL 21 MEQ/L (21-32); CHLORIDE LEVEL 113 MEQ/L (98-107); CHOLESTEROL LEVEL 283 MG/DL (<200); CHOLESTEROL RISK RATIO 7.861 (<5); FREE T4 0.63 NG/DL (0.76-1.46); GLOMERULAR FILTRATION RATE 46.2 (>51); GLUCOSE, FASTING 99 MG/DL (70-100); HDL CHOLESTEROL 36 MG/DL (>40); LDL CHOLESTEROL 206 MG/DL (<100); NON-HDL-C 247 MG/DL; POTASSIUM SERUM 5.4 MEQ/L (3.5-5.1); RHEUMATOID FACTOR QUANT < 10.0 IU/ML (<15.0); SODIUM LEVEL 141 MEQ/L (136-145); THYROID STIMULATING HORMONE 0.802 uIU/ML (0.358-3.740); TOTAL PROTEIN 7.6 GM/DL (6.4-8.2); TRIGLYCERIDES LEVEL 204 MG/DL (<150)
[2020-01-11 14:17] LABS: ERYTHROCYTE SEDIMENTATION RATE 20 mm/hr (0-30)
[2020-01-13 05:13] LABS: ANA (HEP2) Negative (.); ANTINUCLEAR ANTIBODIES DIRECT Negative (Negative); BETA-2 GLYCOPROTEIN I ABY IGA <9 (0-25); BETA-2 GLYCOPROTEIN I ABY IGG <9 (0-20); BETA-2 GLYCOPROTEIN I ABY IGM <9 (0-32); CARDIOLIPIN IGA ANTIBODY <9 APL U/mL (0-11); CARDIOLIPIN IGG ANTIBODY <9 GPL U/mL (0-14); CARDIOLIPIN IGM ANTIBODY 9 MPL U/mL (0-12); CYCLIC CITRULLINATED PEPTIDE 4 units (0-19)
[2020-02-15 11:39] LABS: DRVV SCREEN 72.2 SEC
[2020-02-15 11:40] LABS: PTT LUPUS TYPE ANTICOAG SCREEN 1.8 (0-1.2)
[2020-02-15 12:07] LABS: DRVV CONFIRM 43.4 SEC; LUPUS CONFIRM RATIO 1.2
[2020-02-15 12:38] LABS: NORMALIZED RATIO 1.5 (0.00-1.20)
[2020-02-21 03:09] LABS: HEXAGONAL PHASE PHOSPHOLIPID 8 sec (0-11)
== END ==
LOC: M SFHCPLAZ 10:45
PROVIDERS: ATTEND Family Medicine
DX: I26.93 Single subsegmental thrombotic pulmonary embolism without acute cor pulmonale (principal); M25.60 Stiffness of unspecified joint, not elsewhere classified; E78.2 Mixed hyperlipidemia; N17.9 Acute kidney failure, unspecified

== ENCOUNTER → 2020-03-29 | Outpatient (REF) | payer MEDICARE, MEDICAID ==
[2020-03-29 11:59] LABS: BASO % 0.6 % (0.0-1.0); EOS # 0.2 10^3/uL (0.0-0.5); EOS % 4.1 % (0.0-3.0); HEMATOCRIT 42.9 % (36.0-47.0); HEMOGLOBIN 13.9 g/dl (12.0-15.5); LYMPH # 1.7 10^3/uL (1.5-5.0); LYMPH % 34.3 % (24.0-44.0); MEAN CORPUSCULAR HEMOGLOBIN 28.1 pg (27.0-33.0); MEAN CORPUSCULAR HGB CONC 32.4 g/dl (32.0-36.5); MEAN CORPUSCULAR VOLUME 86.8 fl (80.0-96.0); MONO # 0.3 10^3/uL (0.0-0.8); MONO % 6.7 % (0.0-5.0); NEUTROPHILS # 2.6 10^3/uL (1.5-8.5); NEUTROPHILS % 53.7 % (36.0-66.0); PLATELET COUNT, AUTOMATED 232 10^3/uL (150-450); RED BLOOD COUNT 4.94 10^6/uL (4.00-5.40); WHITE BLOOD COUNT 4.9 10^3/uL (4.0-10.0)
[2020-03-29 12:15] LABS: ALBUMIN 4.3 GM/DL (3.2-5.2); BLOOD UREA NITROGEN 9 MG/DL (7-18); CALCIUM LEVEL 8.8 MG/DL (8.5-10.1); CARBON DIOXIDE LEVEL 24 MEQ/L (21-32); CHLORIDE LEVEL 114 MEQ/L (98-107); CREATININE FOR GFR 0.92 MG/DL (0.55-1.30); GLOMERULAR FILTRATION RATE > 60.0 (>51); GLUCOSE, FASTING 96 MG/DL (70-100); PHOSPHORUS LEVEL 2.3 MG/DL (2.5-4.9); POTASSIUM SERUM 3.6 MEQ/L (3.5-5.1); SODIUM LEVEL 143 MEQ/L (136-145)
== END ==
LOC: M SFHCPLAZ 10:10
PROVIDERS: ATTEND Nurse Practitioner Family
DX: R06.02 Shortness of breath (principal)

== ENCOUNTER → 2020-06-27 | Outpatient (REF) | payer MEDICARE, MEDICAID ==
[~2020-06-27] MED LIST changes: +RISP-9 PO; -RISP2TAB3 PO
[2020-06-27 19:01] LABS: ALBUMIN 4.7 GM/DL (3.2-5.2); BILIRUBIN,TOTAL 0.2 MG/DL (0.2-1.0); C REACTIVE PROTEIN QUANTITATIV 1.09 MG/DL (0.00-0.30); CALCIUM LEVEL 9.3 MG/DL (8.5-10.1); CHOLESTEROL RISK RATIO 7.5 (<5); CREATININE FOR GFR 1.11 MG/DL (0.55-1.30); FREE T4 0.56 NG/DL (0.76-1.46); GLOMERULAR FILTRATION RATE 55.4 (>51); POTASSIUM SERUM 4.1 MEQ/L (3.5-5.1); THYROID STIMULATING HORMONE 1.28 uIU/ML (0.358-3.740); TOTAL PROTEIN 7.6 GM/DL (6.4-8.2)
[2020-06-27 19:02] LABS: PTH INTACT 88.3 PG/ML (18.5-88.0)
[2020-06-27 19:42] LABS: TOTAL 25(OH) VITAMIN D 18.1 NG/ML (30.0-100.0)
[2020-06-30 00:07] LABS: ANA (HEP2) Positive (.); CYCLIC CITRULLINATED PEPTIDE 4 units (0-19)
== END ==
LOC: M SFHCPLAZ 15:24
PROVIDERS: ATTEND Family Medicine
DX: E55.9 Vitamin D deficiency, unspecified (principal); E78.2 Mixed hyperlipidemia; D51.8 Other vitamin B12 deficiency anemias; M25.60 Stiffness of unspecified joint, not elsewhere classified
CPT/HCPCS: 36415; 80053; 80061; 82306; 82550; 82607; 83970; 84439; 84443; 86038; 86140; 86200; G0463

== ENCOUNTER → 2020-09-15 | Outpatient (CLI) | payer MEDICARE, MEDICAID ==
[~2020-09-15] MED LIST changes: -AMIT25TA PO; +AMIT25TA17 PO; -QUET1TAB10; +QUET300T2
--- NOTE | 2020-09-19 07:36 | ECWPNPC ---
PATIENT NAME: KAHLIL THAPA : 1970 GENDER: FEMALE VISIT DATE: 09/15/2020 DISCHARGE DATE: 09/15/20 0959 VISIT LOCKED DATE TIME: PHYSICIAN: JENNY PACHECO PHYSICIAN PAGER NO: ACTIVE RESOURCE: JENNY PACHECO REASON FOR APPOINTMENT 1. HEAD/NECK HISTORY OF PRESENT ILLNESS GENERAL: - 49-YEAR-OLD FEMALE IN FOR CHRONIC PAIN FOLLOW-UP. SHE RATES HER PAIN CURRENTLY AT A 10 OUT OF 10. PATIENT IS CURRENTLY TAKING TIZANIDINE AND ADMITS CURRENT DOSAGE FEELS INEFFECTIVE. FALL RISK SCREENING: SCREENING : NO FALLS REPORTED IN THE LAST YEAR. PAIN SCREENING: PATIENT HAS A COMPLAINT OF ACUTE OR CHRONIC PAIN :YES LOCATION OF PAIN:NECK, HEAD, FACE INTENSITY OF PAIN (SCALE OF 1 TO 10):10 WHAT DOES YOUR PAIN FEEL LIKE:OTHER "STIFF," PAIN VARIES IN INTENSITY AND SEVERITY, WHEN IT REACHES EYES, PATIENT STATES, "IT FEELS LIKE HOT POKERS." PATIENT REPORTS RADIATION INTO ONE OR THE OTHER EYE BOT NOT BOTH. DURATION:AWAKENS FROM SLEEP, CONTINOUS, CONSTANT PAIN IS INCREASED BY:OTHERS WORSE IN MORNING UPON WAKING, UNABLE TO IDENTIFY SPECIFIC TRIGGERS. PAIN IS DECREASED BY:USE OF PAIN MEDICATIONS MINIMAL RELIEF FROM CURRENT MEDICATIONS. PLAN/GOALS/TREATMENT/INTERVENTION/FOLLOW UP:SEE PLAN NURSING NOTE: -. PAIN CENTER INTAKE QUESTIONS: DO YOU HAVE A HISTORY OF MRSA? :NO DO YOU TAKE A BLOOD THINNERS? :YES XARELTO DO YOU HAVE ANY BLEEDING DISORDERS? :NO ANY NEW NUMBNESS OR WEAKNESS IN YOUR LEGS OR ARMS? :NO ANY PACEMAKER,DEFIBRILLATOR, OR DORSAL COLUMN STIMULATOR? :NO DO YOU HAVE ANY RASHES OR OPEN SORES? :NO ARE YOU ALLERGIC TO IV DYE? :NO ARE YOU DIABETIC? :NO ANY NEW PROBLEMS WITH YOUR MEDICATIONS? :NO HAVE YOU RECEIVED A VACCINE IN THE PAST 30 DAYS? :NO DO YOU PLAN TO RECEIVE A VACCINE IN THE NEXT 21 DAYS? :NO DO YOU NEED ANY PRESCRIPTION? :NO DO YOU TAKE ANY IMMUNOSUPPRESSIVE MEDICATIONS? :NO DO YOU HAVE ANY KIDNEY OR LIVER DISEASE? :YES FATTY LIVER IS THERE A CHANCE YOU COULD BE ? :N/A ARE YOU BREAST FEEDING? :N/A CURRENT MEDICATIONS TAKING VITAMIN B-12 1000 MCG TABLET 1 TABLET ORALLY ONCE A DAY TAKING ERGOCALCIFEROL 10519 UNIT CAPSULE 1 CAPSULE ORALLY EVERY 7 DAYS TAKING NEXPLANON 68 MG IMPLANT DIRECTED SUBCUTANEOUS TAKING TOPIRAMATE 100 MG TABLET 1 TABLET ORALLY TWICE A DAY TAKING RELPAX 40 MG TABLET 1 TABLET NEEDED ONE TIME ORALLY ONCE A DAY PRN MIGRAINE TAKING LATUDA 80 MG TABLET 2 TABLET ORALLY BEFORE BEDTIME TAKING PAXIL 40 MG TABLET 1 TABLET IN THE MORNING ORALLY ONCE A DAY, NOTES: 1000 TAKING PRAZOSIN HCL 2 MG CAPSULE TAKE ONE CAPSULE BY MOUTH AT BEDTIME MAXIMUM DAILY DOSE 1 ORAL TAKING LORAZEPAM 1 MG TABLET 1 TABLET AT BEDTIME NEEDED ORALLY THREE TIMES DAILY TAKING LAMOTRIGINE 100 MG TABLET 1 TABLET ORALLY TWICE A DAY TAKING SEROQUEL 300 MG TABLET 2 TABLET ORALLY BEFORE BEDTIME TAKING TIZANIDINE HCL 6 MG CAPSULE 1 TABLET NEEDED ORALLY THREE TIMES A DAY TAKING EZETIMIBE 10 MG TABLET 1 TABLET ORALLY ONCE A DAY TAKING ROSUVASTATIN CALCIUM 20 MG TABLET 1 TABLET ORALLY ONCE A DAY TAKING RIVAROXABAN 20 MG TABLET 1 TABLET WITH FOOD ORALLY ONCE A DAY MEDICATION LIST REVIEWED AND RECONCILED WITH THE PATIENT PAST MEDICAL HISTORY MIGRAINE HEADACHES, COMMON TYPE-01/2011, 12/[address] OF THE BRAIN/ NORMAL MRI BRAIN S CONTRAST BILATERAL SUPRASPINATUS TENDINITIS-JULY 2011 NORMAL BILATERAL SHOULDER X-RAY/APRIL 2011 NEGATIVE RHEUMATOID FACTOR, RACHEL IMPAIRED FASTING GLUCOSE, GEST DM WITH 2ND PREG B12 DEFICIENCY HYPERLIPIDEMIA 2B BIPOLAR DISORDER/INSONMIA/VERÓNICA FIBROCYSTIC BREAST DISEASE INSOMNIA BPV HYPERTENSION-02/2014 NORMAL 24H URINE FOR METANEPHRINES/CATECHOLAMINES, UFC, ALODSTERONE, NA CERVICAL SPONDYLOSIS-MILD ML, BERONICA C56 C SMALL CENTRAL FOCAL HNP C MILD B UNCO SPUR BY 03/2018 MRI H/O YANELY III S/P LEEP L DISTAL TIBIA/FIBULA CLOSED FRACTURE SP 09/2017 MECHANICAL FALL-CASTED BY DR. AMADO NCOG PINEAL CYST NAFLD-DIFFUSE FATTY INFILTRATION C FOCAL DEPOSITION IN MEDIAL SEGMENT OF L LOBE AT SITE ? NODULE BY 03/2017 CT AP-SEEN BY 03/2017 MRI ABD S/C VERÓNICA 12/02/18 CTA CHEST SINGLE 4 MM PE IN PROXIMAL SEGMENTAL OF RLL MEDIAL BASILAR SEGMENT PA; THEREFORE, + RIVAROX LOAD/RX AND DCED OCP CONSTIPATION, CHRONIC-12/2018 CT AP LARGE PANCOLONIC FECAL RETENTION ALLERGIES ESTRADIOL: OTHER - CONTRAINDICATION SOCIAL HISTORY GENERAL: TOBACCO USE ARE YOU A:NONSMOKER NEVER SMOKER LATEX QUESTIONNAIRE LATEX ALLERGY : HAVE YOU EVER DEVELOPED ANY TYPE OF REACTION AFTER HANDLING LATEX PRODUCTS SUCH RUBBER GLOVES, CONDOMS, DIAPHRAGMS, BALLOONS, SOCKS, OR UNDERWEAR?NO LATEX ALLERGY : HAVE YOU EVER DEVELOPED ANY TYPE OF REACTION DURING OR AFTER DENTAL APPOINTMENT, VAGINAL/RECTAL EXAMINATION, SURGICAL PROCEDURE, OR ANY OTHER EXPOSURE?NO LATEX RISK : HAVE YOU EVER HAD ANY DIFFICULTY BREATHING OR HIVES AFTER EATING OR HANDLING ANY FRUITS, OR VEGETABLES; SUCH KIWI, BANANAS, STONE FRUITS, OR CHESTNUTSNO LATEX RISK : DO YOU HAVE A PREVIOUS PERSONAL HISTORY OF MORE THAN NINE SURGERIES, SPINA BIFIDA, OR REPEATED CATHERIZATIONS? NO LATEX RISK : ARE YOU FREQUENTLY EXPOSED TO LATEX PRODUCTS IN YOUR OCCUPATION?NO DATE ASKED : 09/15/2020 ALCOHOL SCREENING DID YOU HAVE A DRINK CONTAINING ALCOHOL IN THE PAST YEAR?NO POINTS0 INTERPRETATIONNEGATIVE RECREATIONAL DRUG USE DENIES. CAFFEINE CAFFEINE USE?YES AILY HAS A CUP SEXUAL HX HAD SEX IN THE LAST 12 MONTHS (VAGINAL, ORAL, OR ANAL)?YES WITHMEN ONLY USE PROTECTION?NO LMP:01/11/19 HAVE YOU EVER HAD AN STD?NO HIV / HEP-C SCREENING HIV TEST OFFERED TO PATIENT:YES DATE OFFERED:01/14/2019 TEST ACCEPTED:NO REASON:PATIENT DECLINED BROCHURE PROVIDED TO PATIENTNO [place] NO JEHOVAH'S WITNESS BELIEFS THAT WOULD IMPACT HEALTH CARE. LANGUAGE SURINAMESE. EDUCATION LEVEL OF EDUCATION:HIGH SCHOOL LEARNING BARRIERS / SPECIAL NEEDS CHANGE FROM LAST VISIT?NO BARRIERS TO LEARNING?NO HEARING IMPAIRED?NO VISION IMPAIRED?NO COGNITIVELY IMPAIRED?NO READINESS TO LEARN?YES LEARNING PREFERENCES?NO LEARNING CAPABILITIES PRESENT?YES EMOTIONAL BARRIERS?NO SPECIAL DEVICES?NO GOVERNMENT SERVICE EXECUTIVE NEEDED?NO DOMESTIC VIOLENCE DO YOU FEEL SAFE IN YOUR ENVIRONMENT?YES OCCUPATION: DISABLED. DIET: NO HX EATING DISORDERS. EXERCISE: NO REGULAR EXERCISE SOME WALKING. MARITAL STATUS: .. OTHERS AT HOME: BOYFRIEND. - HAS THE PATIENT BEEN EDUCATED REGARDING HIS/HER PLAN OF CARE?YES HAS THE PATIENT BEEN EDUCATED REGARDING PAIN, THE RISK FOR PAIN, THE IMPORTANCE OF EFFECTIVE PAIN MANAGEMENT, AND THE PAIN ASSESSMENT PROCESS?YES HOUSING: OWNS HOME. ADVANCE DIRECTIVE ADVANCE DIRECTIVE DISCUSSED WITH PATIENT:YES PT DOES NOT HAVE ANY ADVANCED DIRECTIVES AND SHE DECLINED HCP INFORMATION AT THIS TIME. AD REVIEW OF SYSTEMS CONSTITUTIONAL: ANY RECENT FEVER NO . CHILLS NO . WEIGHT CHANGE OF UNKNOWN REASONS NO . GASTROENTEROLOGY: NEW UNEXPLAINABLE CHANGES IN BOWEL CONTROL NO . CONSTIPATION NO . GENITOURINARY: ANY NEW CHANGE IN BLADDER CONTROL? NO . NEUROLOGY: NEW ONSET DIZZINESS OR NEUROLOGICAL CHANGES NOT MENTIONED NO . NEW NUMBNESS OR PAIN PATTERNS NOT MENTIONED AND PERTINENT TO TODAY'S VISIT NO . CARDIOLOGY: NEW CHEST PRESSURE NO . PATIENT DENIES NO . RESPIRATORY: UNEXPLAINABLE COUGH NO . NEW SHORTNESS OF BREATH NO . VITAL SIGNS WT 163 LBS, HT 62 IN, BMI 29.81 INDEX, BP 110/69 MM HG, HR 96 /MIN, RR 18 /MIN, TEMP 96.6 F, OXYGEN SAT % 98%, SAFE IN ENV? (Y/N) YES, NA INITIALS SD 09:35, REVIEWED BY: Glenn MIRELES INDUST[employer] HEALTH AND SAFETY PROFESSOR. EXAMINATION GENERAL EXAMINATION: GENERALNO ACUTE DISTRESS, WELL NOURISHED AND HYDRATED. PSYCHAPPROPRIATE MOOD AND AFFECT . LUNGS:CLEAR TO AUSCULTATION BILATERALLY, NO WHEEZES, RHONCHI, RALES. HEART:NO MURMURS, REGULAR RATE AND RHYTHM. ASSESSMENTS DJD (DEGENERATIVE JOINT DISEASE), CERVICAL - M50.30 (PRIMARY) TREATMENT DJD (DEGENERATIVE JOINT DISEASE), CERVICAL INCREASE TIZANIDINE HCL CAPSULE, 6 MG, 1 TABLET NEEDED, ORALLY, THREE TIMES A DAY, 30 DAYS, 90 [facility] MRI SPINE, CERVICAL WITHOUT [id number] NOTES: 49-YEAR-OLD FEMALE IN FOR CHRONIC PAIN FOLLOW-UP. GIVEN PRESENTING SYMPTOMS RECOMMEND GETTING AN UPDATED CERVICAL MRI WITH FOLLOW-UP POST IMAGING. PATIENT EXPRESSED UNDERSTANDING OF AND WAS IN AGREEMENT WITH TREATMENT PLAN. GIVEN TIME TO ASK QUESTIONS AND EXPRESS CONCERNS. PROCEDURE CODES FA211 ESTABILISHED PATIENT [facility] FACILITY CHARGE DISPOSITION & COMMUNICATION FOLLOW UP POST IMAGING (REASON: CERVICAL MRI WITHOUT ) ELECTRONICALLY SIGNED BY TIFFANIE KLEIN ON 09/18/2020 AT 08:12 AM EDT DISCLAIMER : THIS IS A VISIT SUMMARY EXTRACTED FROM THE [employer] CHART. IT IS NOT A COPY OF THE [employer] PROGRESS NOTE. ANGELINA
== END ==
LOC: M PAIN 09:30
PROVIDERS: ATTEND Family Medicine
DX: M50.30 Other cervical disc degeneration, unspecified cervical region (principal); G43.009 Migraine without aura, not intractable, without status migrainosus; E53.8 Deficiency of other specified B group vitamins; E78.5 Hyperlipidemia, unspecified; F31.9 Bipolar disorder, unspecified; G47.00 Insomnia, unspecified; I10 Essential (primary) hypertension; K76.0 Fatty (change of) liver, not elsewhere classified; Z79.01 Long term (current) use of anticoagulants; Z79.899 Other long term (current) drug therapy; Z88.8 Allergy status to other drugs, medicaments and biological substances

== ENCOUNTER → 2020-09-27 | Outpatient (CLI) | payer MEDICARE, MEDICAID ==
[~2020-09-27] MED LIST changes: +PROHANCE 279.3MG/ML 15ML VIAL As Ordered ONE
--- NOTE | 2020-09-28 08:57 | REP ---
INDICATION: PINEAL GLAND CYST. COMPARISON: MRI brain 05/09/2015 and MRI brain 06/06/2008. TECHNIQUE: Axial T1, T2, FLAIR, and diffusion-weighted images obtained. Post contrast multiplanar T1 weighted images obtained. FINDINGS: No evidence of restricted diffusion to suggest acute infarction. No gradient echo susceptibility to suggest hemorrhage. The ventricles and extra-axial CSF spaces are within normal limits. No mass effect or midline shift. No abnormal fluid collections. Following contrast, no abnormal enhancement. There is approximately 1 cm pineal region cyst. No definite solid enhancement. IMPRESSION: 1. No acute findings. 2. Pineal region cyst measures approximately 1 cm in longest dimension. No solid enhancement. These are typically incidental findings. The appearance is not significantly changed from comparison studies. <Electronically signed by Álvaro Baldwin > 09/28/20 0853
== END ==
LOC: M RAD 12:56
PROVIDERS: ATTEND Family Medicine
DX: E34.8 Other specified endocrine disorders (principal)
CPT/HCPCS: 70553; A9576

== ENCOUNTER → 2020-10-03 | Outpatient (CLI) | payer MEDICARE, MEDICAID ==
[~2020-10-03] MED LIST changes: -PROHANCE 279.3MG/ML 15ML VIAL As Ordered ONE
--- NOTE | 2020-10-03 14:36 | REP ---
INDICATION: CERVICAL DDD. COMPARISON: None. TECHNIQUE: Sagittal T1, T2, STIR, axial T1 and T2 weighted images of the cervical spine are obtained. FINDINGS: There is jtbq-lf-[id number] multilevel degenerative disc disease with loss of disc height and disc desiccation seen diffusely throughout the cervical spine. Vertebral heights are overall preserved. No malalignments. Craniovertebral junction is unremarkable. Cervical cord appears normal in its course, caliber and signal characteristics. On the sagittal images, no definite cord impingement. On the review of axial images, At C2-3 no significant canal or foraminal narrowing. At C3-4 disc-osteophyte complex with mild canal narrowing and lhhx-rh-sfpmhtib bilateral foraminal narrowing. At C4-5 there is a central disc-osteophyte complex with moderate canal narrowing with minor cord impingement and mild bilateral foraminal narrowing. At C5-6 disc-osteophyte complex with wacv-sd-jwedleqb canal narrowing and mhrd-sx-tazybryq bilateral foraminal narrowing At C6-7 disc-osteophyte complex with mild canal narrowing and mild bilateral foraminal narrowing At C7-T1 no significant canal or foraminal narrowing. IMPRESSION: 1. Obfw-lv-keuejpvt multilevel degenerative disc disease. 2. No definite limiting canal stenosis. At C4-5 there is a central disc-osteophyte complex with moderate canal narrowing. 3. Multilevel foraminal narrowing as described, hacg-fu-nkutiidy. <Electronically signed by Álvaro Baldwin > 10/03/20 [id number]
== END ==
LOC: M PLARAD 12:34
PROVIDERS: ATTEND Family Medicine
DX: M50.30 Other cervical disc degeneration, unspecified cervical region (principal)

== ENCOUNTER → 2020-10-17 | Outpatient (CLI) | payer MEDICARE, MEDICAID ==
--- NOTE | 2020-10-19 04:03 | ECWPNPC ---
PATIENT NAME: KAHLIL THAPA : 1970 GENDER: FEMALE VISIT DATE: 10/17/2020 DISCHARGE DATE: 10/17/20 1010 VISIT LOCKED DATE TIME: PHYSICIAN: JENNY PACHECO PHYSICIAN PAGER NO: ACTIVE RESOURCE: JENNY PACHECO REASON FOR APPOINTMENT 1. MRI REVIEW HISTORY OF PRESENT ILLNESS DEPRESSION SCREENING: PHQ-9 LITTLE INTEREST OR PLEASURE IN DOING THINGSSEVERAL DAYS FEELING DOWN, DEPRESSED, OR HOPELESSSEVERAL DAYS TROUBLE FALLING OR STAYING ASLEEP, OR SLEEPING TOO MUCHNEARLY EVERY DAY FEELING TIRED OR HAVING LITTLE ENERGYNOT AT ALL POOR APPETITE OR OVEREATING NEARLY EVERY DAY FEELING BAD ABOUT YOURSELF-OR THAT YOU ARE A FAILURE OR HAVE LET YOURSELF OR YOUR FAMILY DOWN NEARLY EVERY DAY TROUBLE CONCENTRATING ON THINGS, SUCH READING THE NEWSPAPER OR WATCHING TELEVISION NEARLY EVERY DAY MOVING OR SPEAKING SO SLOWLY THAT OTHER PEOPLE COULD HAVE NOTICED. OR THE OPPOSITE- BEING SO FIDGETY OR RESTLESS THAT YOU HAVE BEEN MOVING AROUND A LOT MORE THAN USUALNEARLY EVERY DAY THOUGHTS THAT YOU WOULD BE BETTER OFF , OR OF HURTING YOURSELF IN SOME WAY?NOT AT ALL TOTAL SCORE:17 INTERPRETATIONMODERATELY SEVERE DEPRESSION PHQ-2 (2015 EDITION) LITTLE INTEREST OR PLEASURE IN DOING THINGS?SEVERAL DAYS FEELING DOWN, DEPRESSED, OR HOPELESS?SEVERAL DAYS TOTAL SCORE2 49-YEAR-OLD FEMALE IN FOR CHRONIC PAIN FOLLOW-UP. SHE RATES HER PAIN CURRENTLY AT A 2 OUT OF 10 AND DESCRIBES IT A STIFF FEELING. PATIENT HAD AN MRI PERFORMED RECENTLY WHICH WILL BE REVIEWED WITH PATIENT TODAY. GENERAL: -. FALL RISK SCREENING: SCREENING : NO FALLS REPORTED IN THIS YEAR. PAIN SCREENING: PATIENT HAS A COMPLAINT OF ACUTE OR CHRONIC PAIN :YES LOCATION OF PAIN:NECK, BOTH SHOULDERS INTENSITY OF PAIN (SCALE OF 1 TO 10):2 WHAT DOES YOUR PAIN FEEL LIKE:OTHER SIFF DURATION:CONTINOUS, CONSTANT, ALL DAY PAIN IS INCREASED BY:ACTIVITIES PAIN IS DECREASED BY:OTHERS COLD CLOTH ON HER HEAD NURSING NOTE: -. PAIN CENTER INTAKE QUESTIONS: DO YOU HAVE A HISTORY OF MRSA? :NO DO YOU TAKE A BLOOD THINNERS? :YES XARELTO DO YOU HAVE ANY BLEEDING DISORDERS? :NO ANY NEW NUMBNESS OR WEAKNESS IN YOUR LEGS OR ARMS? :NO ANY PACEMAKER,DEFIBRILLATOR, OR DORSAL COLUMN STIMULATOR? :NO DO YOU HAVE ANY RASHES OR OPEN SORES? :NO ARE YOU ALLERGIC TO IV DYE? :NO ARE YOU DIABETIC? :NO ANY NEW PROBLEMS WITH YOUR MEDICATIONS? :NO HAVE YOU RECEIVED A VACCINE IN THE PAST 30 DAYS? :YES IF SO WHAT VACCINE AND WHEN? 1ST COVID 09/21/2020 DO YOU PLAN TO RECEIVE A VACCINE IN THE NEXT 21 DAYS? :YES IF SO WHAT VACCINE AND WHEN? 2ND COVID 10/19/2020 DO YOU NEED ANY PRESCRIPTION? :NO DO YOU TAKE ANY IMMUNOSUPPRESSIVE MEDICATIONS? :NO DO YOU HAVE ANY KIDNEY OR LIVER DISEASE? :YES FATTY LIVER IS THERE A CHANCE YOU COULD BE ? :N/A ARE YOU BREAST FEEDING? :N/A CURRENT MEDICATIONS TAKING VITAMIN B-12 1000 MCG TABLET 1 TABLET ORALLY ONCE A DAY TAKING ERGOCALCIFEROL 85950 UNIT CAPSULE 1 CAPSULE ORALLY EVERY 7 DAYS TAKING NEXPLANON 68 MG IMPLANT DIRECTED SUBCUTANEOUS TAKING TOPIRAMATE 100 MG TABLET 1 TABLET ORALLY TWICE A DAY TAKING RELPAX 40 MG TABLET 1 TABLET NEEDED ONE TIME ORALLY ONCE A DAY PRN MIGRAINE TAKING LATUDA 80 MG TABLET 2 TABLET ORALLY BEFORE BEDTIME TAKING PRAZOSIN HCL 2 MG CAPSULE TAKE ONE CAPSULE BY MOUTH AT BEDTIME MAXIMUM DAILY DOSE 1 ORAL TAKING LORAZEPAM 1 MG TABLET 1 TABLET AT BEDTIME NEEDED ORALLY THREE TIMES DAILY TAKING LAMOTRIGINE 100 MG TABLET 1 TABLET ORALLY TWICE A DAY TAKING SEROQUEL 300 MG TABLET 2 TABLET ORALLY BEFORE BEDTIME TAKING EZETIMIBE 10 MG TABLET 1 TABLET ORALLY ONCE A DAY TAKING ROSUVASTATIN CALCIUM 20 MG TABLET 1 TABLET ORALLY ONCE A DAY TAKING RIVAROXABAN 20 MG TABLET 1 TABLET WITH FOOD ORALLY ONCE A DAY TAKING TIZANIDINE HCL 6 MG CAPSULE 1 TABLET NEEDED ORALLY THREE TIMES A DAY NOT-TAKING PAXIL 40 MG TABLET 1 TABLET IN THE MORNING ORALLY ONCE A DAY MEDICATION LIST REVIEWED AND RECONCILED WITH THE PATIENT PAST MEDICAL HISTORY MIGRAINE HEADACHES, COMMON TYPE-01/2011, 12/[address] OF THE BRAIN/ NORMAL MRI BRAIN S CONTRAST BILATERAL SUPRASPINATUS TENDINITIS-JULY 2011 NORMAL BILATERAL SHOULDER X-RAY/APRIL 2011 NEGATIVE RHEUMATOID FACTOR, RACHEL IMPAIRED FASTING GLUCOSE, GEST DM WITH 2ND PREG B12 DEFICIENCY HYPERLIPIDEMIA 2B BIPOLAR DISORDER/INSONMIA/VERÓNICA FIBROCYSTIC BREAST DISEASE INSOMNIA BPV HYPERTENSION-02/2014 NORMAL 24H URINE FOR METANEPHRINES/CATECHOLAMINES, UFC, ALODSTERONE, NA CERVICAL SPONDYLOSIS-MILD ML, BERONICA C56 C SMALL CENTRAL FOCAL HNP C MILD B UNCO SPUR BY 03/2018 MRI H/O YANELY III S/P LEEP L DISTAL TIBIA/FIBULA CLOSED FRACTURE SP 09/2017 MECHANICAL FALL-CASTED BY DR. AMADO NCOG PINEAL CYST NAFLD-DIFFUSE FATTY INFILTRATION C FOCAL DEPOSITION IN MEDIAL SEGMENT OF L LOBE AT SITE ? NODULE BY 03/2017 CT AP-SEEN BY 03/2017 MRI ABD S/C VERÓNICA 12/02/18 CTA CHEST SINGLE 4 MM PE IN PROXIMAL SEGMENTAL OF RLL MEDIAL BASILAR SEGMENT PA; THEREFORE, + RIVAROX LOAD/RX AND DCED OCP CONSTIPATION, CHRONIC-12/2018 CT AP LARGE PANCOLONIC FECAL RETENTION ALLERGIES ESTRADIOL: OTHER - CONTRAINDICATION SOCIAL HISTORY GENERAL: TOBACCO USE ARE YOU A: NEVER SMOKER LATEX QUESTIONNAIRE LATEX ALLERGY : HAVE YOU EVER DEVELOPED ANY TYPE OF REACTION AFTER HANDLING LATEX PRODUCTS SUCH RUBBER GLOVES, CONDOMS, DIAPHRAGMS, BALLOONS, SOCKS, OR UNDERWEAR?NO LATEX ALLERGY : HAVE YOU EVER DEVELOPED ANY TYPE OF REACTION DURING OR AFTER DENTAL APPOINTMENT, VAGINAL/RECTAL EXAMINATION, SURGICAL PROCEDURE, OR ANY OTHER EXPOSURE?NO LATEX RISK : HAVE YOU EVER HAD ANY DIFFICULTY BREATHING OR HIVES AFTER EATING OR HANDLING ANY FRUITS, OR VEGETABLES; SUCH KIWI, BANANAS, STONE FRUITS, OR CHESTNUTSNO LATEX RISK : DO YOU HAVE A PREVIOUS PERSONAL HISTORY OF MORE THAN NINE SURGERIES, SPINA BIFIDA, OR REPEATED CATHERIZATIONS? NO LATEX RISK : ARE YOU FREQUENTLY EXPOSED TO LATEX PRODUCTS IN YOUR OCCUPATION?NO DATE ASKED : 10/17/2020 ALCOHOL USE: YES VERY RARELY. ALCOHOL SCREENING DID YOU HAVE A DRINK CONTAINING ALCOHOL IN THE PAST YEAR?NO POINTS0 INTERPRETATIONNEGATIVE RECREATIONAL DRUG USE DENIES. CAFFEINE CAFFEINE USE?YES AILY HAS A CUP SEXUAL HX HAD SEX IN THE LAST 12 MONTHS (VAGINAL, ORAL, OR ANAL)?YES WITHMEN ONLY USE PROTECTION?NO LMP:01/11/19 HAVE YOU EVER HAD AN STD?NO HIV / HEP-C SCREENING HIV TEST OFFERED TO PATIENT:YES DATE OFFERED:01/14/2019 TEST ACCEPTED:NO REASON:PATIENT DECLINED BROCHURE PROVIDED TO PATIENTNO MUSLIM NO RESTORATIONIST BELIEFS THAT WOULD IMPACT HEALTH CARE. LANGUAGE NEPALESE. EDUCATION LEVEL OF EDUCATION:HIGH SCHOOL LEARNING BARRIERS / SPECIAL NEEDS CHANGE FROM LAST VISIT?NO BARRIERS TO LEARNING?NO HEARING IMPAIRED?NO VISION IMPAIRED?YES READING COGNITIVELY IMPAIRED?NO READINESS TO LEARN?YES LEARNING PREFERENCES?NO LEARNING CAPABILITIES PRESENT?YES EMOTIONAL BARRIERS?NO SPECIAL DEVICES?NO MEDICAL ONCOLOGY PHYSICIAN NEEDED?NO DOMESTIC VIOLENCE DO YOU FEEL SAFE IN YOUR ENVIRONMENT?YES OCCUPATION: DISABLED. DIET: NO HX EATING DISORDERS. EXERCISE: NO REGULAR EXERCISE SOME WALKING. MARITAL STATUS: .. OTHERS AT HOME: BOYFRIEND. - HAS THE PATIENT BEEN EDUCATED REGARDING HIS/HER PLAN OF CARE?YES HAS THE PATIENT BEEN EDUCATED REGARDING PAIN, THE RISK FOR PAIN, THE IMPORTANCE OF EFFECTIVE PAIN MANAGEMENT, AND THE PAIN ASSESSMENT PROCESS?YES HOUSING: OWNS HOME. ADVANCE DIRECTIVE ADVANCE DIRECTIVE DISCUSSED WITH PATIENT:YES PT DOES NOT HAVE ANY ADVANCED DIRECTIVES AND SHE DECLINED HCP INFORMATION AT THIS TIME. AD REVIEW OF SYSTEMS CONSTITUTIONAL: ANY RECENT FEVER NO . CHILLS NO . WEIGHT CHANGE OF UNKNOWN REASONS NO . GASTROENTEROLOGY: NEW UNEXPLAINABLE CHANGES IN BOWEL CONTROL NO . CONSTIPATION NO . GENITOURINARY: ANY NEW CHANGE IN BLADDER CONTROL? NO . NEUROLOGY: NEW ONSET DIZZINESS OR NEUROLOGICAL CHANGES NOT MENTIONED NO . NEW NUMBNESS OR PAIN PATTERNS NOT MENTIONED AND PERTINENT TO TODAY'S VISIT NO . CARDIOLOGY: NEW CHEST PRESSURE NO . PATIENT DENIES NO . RESPIRATORY: UNEXPLAINABLE COUGH NO . NEW SHORTNESS OF BREATH NO . VITAL SIGNS WT 162.8 LBS, HT 62 IN, BMI 29.77 INDEX, BP 100/64 MM HG, HR 100 /MIN, RR 18 /MIN, TEMP 97.8 F, OXYGEN SAT % 98%, SAFE IN ENV? (Y/N) YES, NA INITIALS AW 0940T.VADIM NATARAJAN. EXAMINATION GENERAL EXAMINATION: GENERALNO ACUTE DISTRESS, WELL NOURISHED AND HYDRATED. PSYCHAPPROPRIATE MOOD AND AFFECT . LUNGS:CLEAR TO AUSCULTATION BILATERALLY, NO WHEEZES, RHONCHI, RALES. HEART:NO MURMURS, REGULAR RATE AND RHYTHM. ASSESSMENTS DJD (DEGENERATIVE JOINT DISEASE), CERVICAL - M50.30 (PRIMARY) TREATMENT DJD (DEGENERATIVE JOINT DISEASE), CERVICAL STOP TIZANIDINE HCL CAPSULE, 6 MG, 1 TABLET NEEDED, ORALLY, THREE TIMES A DAY START BACLOFEN TABLET, 5 MG, 1 TABLET NEEDED, ORALLY, THREE TIMES A DA PRNY, 30 DAY(S), 90 NOTES: 49-YEAR-OLD FEMALE IN FOR CHRONIC PAIN FOLLOW-UP. MRI WAS REVIEWED WITH PATIENT TODAY. DISCUSSED PROCEDURES AND PATIENT STATES THEY DID NOT WORK FOR HER IN THE PAST. GIVEN PRESENTING SYMPTOMS RECOMMENDED STOPPING TIZANIDINE AND STARTING BACLOFEN 5 MG 3 TIMES A DAY WITH FOLLOW-UP IN ONE MONTH TO DETERMINE EFFICACY OF TREATMENT. PATIENT HAS EXPRESSED UNDERSTANDING OF AND WAS IN AGREEMENT WITH TREATMENT PLAN. GIVEN TIME TO ASK QUESTIONS AND EXPRESS CONCERNS. PRINTED INFORMATION ON NEW MEDICATION BACLOFEN NOFITY THE PATIENT IF SHE HAS ANY QUESTIONS ABOUT THE NEW MEDICATION TO ASK THE [address]. PROCEDURE CODES FA211 ESTABILISHED PATIENT [facility] CHARGE DISPOSITION & COMMUNICATION FOLLOW UP 4 WEEKS (REASON: NEW MED ) ELECTRONICALLY SIGNED BY TIFFANIE KLEIN ON 10/18/2020 AT 08:52 AM EDT DISCLAIMER : THIS IS A VISIT SUMMARY EXTRACTED FROM THE [employer] CHART. IT IS NOT A COPY OF THE [employer] PROGRESS NOTE. ANGELINA
== END ==
LOC: M PAIN 09:30
PROVIDERS: ATTEND Family Medicine
DX: M50.30 Other cervical disc degeneration, unspecified cervical region (principal); G43.009 Migraine without aura, not intractable, without status migrainosus; R73.01 Impaired fasting glucose; E53.8 Deficiency of other specified B group vitamins; E78.5 Hyperlipidemia, unspecified; F31.9 Bipolar disorder, unspecified; G47.00 Insomnia, unspecified; I10 Essential (primary) hypertension; K76.0 Fatty (change of) liver, not elsewhere classified; Z79.01 Long term (current) use of anticoagulants; Z79.899 Other long term (current) drug therapy; Z88.8 Allergy status to other drugs, medicaments and biological substances

== ENCOUNTER → 2020-10-26 | Outpatient (REF) | payer MEDICARE, MEDICAID ==
[2020-10-26 13:26] LABS: ALBUMIN 4.3 GM/DL (3.2-5.2); BLOOD UREA NITROGEN 14 MG/DL (7-18); CALCIUM LEVEL 9.3 MG/DL (8.5-10.1); CARBON DIOXIDE LEVEL 23 MEQ/L (21-32); CHLORIDE LEVEL 109 MEQ/L (98-107); CHOLESTEROL LEVEL 298 MG/DL (<200); CHOLESTEROL RISK RATIO 6.622 (<5); COMPLEMENT C3 121 MG/DL (90-180); COMPLEMENT C4 26 MG/DL (10-40); CREATININE FOR GFR 1.01 MG/DL (0.55-1.30); GLOMERULAR FILTRATION RATE > 60.0 (>51); GLUCOSE, FASTING 107 MG/DL (70-100); HDL CHOLESTEROL 45 MG/DL (>40); LDL CHOLESTEROL 214 MG/DL (<100); NON-HDL-C 253 MG/DL; PHOSPHORUS LEVEL 3.7 MG/DL (2.5-4.9); POTASSIUM SERUM 3.3 MEQ/L (3.5-5.1); SODIUM LEVEL 140 MEQ/L (136-145); TOTAL PROTEIN 7.4 GM/DL (6.4-8.2); TRIGLYCERIDES LEVEL 194 MG/DL (<150)
[2020-10-26 13:27] LABS: C REACTIVE PROTEIN QUANTITATIV 3.18 MG/DL (0.00-0.30)
[2020-10-26 13:52] LABS: TOTAL PROTEIN,RANDOM URINE 26.8 MG/DL (0.0-12.0)
[2020-10-30 13:37] LABS: ALBUMIN 4.37 GM/DL (3.29-5.55); ALPHA-1-GLOBULIN % 4.9 % (2.9-4.9); ALPHA-2-GLOBULINS % 11.5 % (7.1-11.8); BETA-1-GLOBULINS % 5.8 % (4.7-7.2); GAMMA GLOBULIN % 13.8 % (11.1-18.8)
[2020-10-30 13:38] LABS: ALPHA-1-GLOBULINS 0.36 GM/DL (0.17-0.41); ALPHA-2-GLOBULINS 0.85 GM/DL (0.42-0.99); BETA-1-GLOBULINS 0.43 GM/DL (0.28-0.60); BETA-2-GLOBULINS 0.37 GM/DL (0.19-0.55); GAMMA GLOBULINS 1.02 GM/DL (0.65-1.58)
[2020-11-09 10:13] LABS: ANA (HEP2) Negative (.); ANTI SCLERODERMA ANTIBODIES 0.2 AI (0.0-0.9); ANTI SMITH(Sm) AB <20 Units (<20); ANTI-U1 RNP AB <20 Units (<20); Alkaline Phosphatase Iso-Bone 37 % (14-68); Alkaline Phosphatase Iso-Intes 3 % (0-18); Alkaline Phosphatase Iso-Liver 60 % (18-85); HLA-B27 Negative (.); SSA SJOGRENS A <0.2 AI (0.0-0.9); SSB SJOGRENS B <0.2 AI (0.0-0.9); TOTAL ALK PHOS 170 IU/L (39-117)
== END ==
LOC: M SFHCPLAZ 09:26
PROVIDERS: ATTEND Family Medicine
DX: E55.9 Vitamin D deficiency, unspecified (principal); M25.60 Stiffness of unspecified joint, not elsewhere classified; E78.2 Mixed hyperlipidemia
CPT/HCPCS: 36415; 80061; 80069; 81374; 82570; 82977; 83520; 84080; 84156; 84165; 85652; 86038; 86140; 86160; 86235; G0463

== ENCOUNTER → 2020-11-02 | Outpatient (CLI) | payer MEDICARE, MEDICAID ==
--- NOTE | 2020-11-02 09:07 | REPMRS ---
Patient History The patient states she had a clinical breast exam in 10/2019. Patient is postmenopausal. Family history of breast cancer under age 50 in paternal aunt, breast cancer at age 50 or over in maternal grandmother, prostate cancer at age 50 or over in father, prostate cancer in paternal uncle. Took hormonal contraceptives for 5 years. Patient states no breast complaints today. Patient has signed MRS History Sheet. Digital Woman Screen Mammo: November 02, 2020 - Exam #: [id number] Bilateral CC and MLO view(s) were taken. Technologist: Ann Marie Mcgowan, Technical Internship Prior study comparison: January 14, 2019, bilateral digital woman screen mammo performed at [facility]. January 13, 2018, bilateral digital woman screen mammo performed at [facility]. FINDINGS: The breast tissue is heterogeneously dense. This may lower the sensitivity of mammography. Screening. Digital screening (2D) mammography was performed bilaterally in the CC and MLO projections. Additionally, breast tomosynthesis (3D mammography) was performed bilaterally in the CC and MLO projections. Todays exam was compared to the prior exams. By history, the patient has no complaints of a palpable breast abnormality or other significant breast complaints. The breasts are unchanged in size and shape. Once again, dense heterogenous fibroglandular elements are seen bilaterally in a stable appearing pattern but to such a degree that the sensitivity of the mammogram in detecting cancer is decreased.There are no mian-soft tissue densities or spiculated masses. There is no internal architectural distortion. There are no suspicious mian-calcific clusters. Skin thickening or nipple retraction is not present. IMPRESSION: BI-RADS Category 2- Benign Findings. There is no evidence of malignant alteration of the breasts. Followup examination recommended in one year. The Volpara volumetric breast density category is C, the breasts are heterogenously dense which may obscure small masses. This mammogram was read with the assistance of [employer],an FDA approved computer aided detection system for mammography. The lifetime Tyrer-Cuzick score is 18.9 % Negative x-ray reports should not delay surgical consultation if a dominant or clinically suspicious mass is present. Not all breast cancers can be identified by mammography. Therefore, we recommend that you continue to perform regular breast self-examination and physical examination and then promptly contact your physician of any concerns or changes. Adenosis and dense breasts may obscure an underlying neoplasm. Assessment: BI-RADS/ACR category 2 mammogram. Benign Findings. Recommendation Routine screening mammogram of both breasts in 1 year. Electronically Signed By: Juanito Dunbar DO 11/02/20 0907
--- NOTE | 2020-11-02 09:09 | DEXAMM ---
INDICATION: E28.39 ESTROGEN DEFICIENCY. COMPARISON: None. TECHNIQUE: Bone density was measured using dual-energy x-ray absorptiometry (DEXA). FINDINGS: AP SPINE L1-L4 BMD 1.104 g/cm2 Young Adult T-Score -0.7 Age Matched Z-Score -0.3. LT FEMUR, TOTAL BMD 0.752 g/cm2 Young Adult T-Score -2.0 Age Matched Z-Score -1.5. LT NECK BMD 0.732 g/cm2 Young Adult T-Score -2.2 Age Matched Z-Score -1.4. RT FEMUR, TOTAL BMD 0.788 g/cm2 Young Adult T-Score -1.7 Age Matched Z-Score -1.2. RT NECK BMD 0.761 g/cm2 Young Adult T-Score -2.0 Age Matched Z-Score -1.2. IMPRESSION: There is normal bone density of the spine. There is low bone density of the left hip. There is low bone density of the right hip. FOLLOW-UP: Recommendation for the next bone density exam: 2 years. <Electronically signed by Bal Beard > 11/02/20 0905
== END ==
LOC: M WHC 08:01
PROVIDERS: ATTEND Family Medicine
DX: Z12.31 Encounter for screening mammogram for malignant neoplasm of breast (principal); E28.39 Other primary ovarian failure

== ENCOUNTER → 2020-11-09 | Outpatient (REF) | payer MEDICARE, MEDICAID ==
[2020-11-09 14:00] LABS: ALBUMIN 4.5 GM/DL (3.2-5.2); BLOOD UREA NITROGEN 9 MG/DL (7-18); C REACTIVE PROTEIN QUANTITATIV 0.56 MG/DL (0.00-0.30); CALCIUM LEVEL 9.5 MG/DL (8.5-10.1); CARBON DIOXIDE LEVEL 24 MEQ/L (21-32); CHLORIDE LEVEL 111 MEQ/L (98-107); CPK CREATINE PHOSPHOKINASE 60 U/L (26-192); CREATININE FOR GFR 1.06 MG/DL (0.55-1.30); GLOMERULAR FILTRATION RATE 58.4 (>51); GLUCOSE, FASTING 96 MG/DL (70-100); MAGNESIUM LEVEL 2.5 MG/DL (1.8-2.4); POTASSIUM SERUM 4.2 MEQ/L (3.5-5.1); RHEUMATOID FACTOR QUANT < 10.0 IU/ML (<15.0); SODIUM LEVEL 141 MEQ/L (136-145)
[2020-11-10 21:07] LABS: ANA (HEP2) Positive (.); G6PD2 5.04 x10E6/uL (3.77-5.28)
[2020-11-11 11:38] LABS: DRVV SCREEN 72.3 SEC
[2020-11-11 11:41] LABS: PTT LUPUS TYPE ANTICOAG SCREEN 1.7 (0-1.2)
[2020-11-11 11:48] LABS: DRVV CONFIRM 43.4 SEC; LUPUS CONFIRM RATIO 1.1
[2020-11-11 11:49] LABS: NORMALIZED RATIO 1.55 (0.00-1.20)
[2020-11-15 14:09] LABS: HEXAGONAL PHASE PHOSPHOLIPID 0 sec (0-11)
== END ==
LOC: M SFHCPLAZ 10:41
PROVIDERS: ATTEND Physician Assistant
DX: M06.4 Inflammatory polyarthropathy (principal)

== ENCOUNTER → 2020-11-09 | Outpatient (CLI) | payer MEDICARE, MEDICAID ==
--- NOTE | 2020-11-09 11:33 | REPPI ---
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 COMPARISON: None. TECHNIQUE: Three views of the shoulder were performed bilaterally. FINDINGS: The acromioclavicular and glenohumeral relationships are within normal limits. There is no acute fracture or destructive osseous lesion. IMPRESSION: Within normal limits bilaterally <Electronically signed by Juanito Dunbar > 11/09/20 [id number]
--- NOTE | 2020-11-09 11:35 | REPPI ---
INDICATION: M06.4 UNDIFFERENTIATED INFLAMMATORY ARTHRITIS COMPARISON: None. TECHNIQUE: Five views bilateral knees. FINDINGS: There is no evidence of acute fracture, dislocation, or intrinsic bone disease.There is minimal medial joint space narrowing bilaterally. There is minimal lateral patellofemoral compartment narrowing bilaterally. I do not see radiographic evidence of a significant joint effusion bilaterally. IMPRESSION: No fracture or dislocation. Minimal degenerative changes as discussed above. <Electronically signed by Bal Beard > 11/09/20 2549
--- NOTE | 2020-11-09 11:35 | REPPI ---
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 COMPARISON: None. TECHNIQUE: Four views bilaterally FINDINGS: The joint spaces are symmetric and relatively well maintained. There is no evidence of acute fracture or destructive osseous lesion. There is no marginal osteophytosis, marginal erosion, or periarticular osteopenia. IMPRESSION: Within normal limits bilaterally <Electronically signed by Juanito Dunbar > 11/09/20 [id number]
--- NOTE | 2020-11-09 11:38 | REPPI ---
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 TECHNIQUE: Four views bilaterally FINDINGS: The cortical surfaces are smooth bilaterally. There is no acute fracture, dislocation, or subluxation. The radiocarpal joint space is within normal limits bilaterally. There is normal curvature of the scaphoid simulating a cyst. This is seen bilaterally. IMPRESSION: Within normal limits bilaterally. <Electronically signed by Juanito Dunbar > 11/09/20 1285
--- NOTE | 2020-11-09 11:39 | REPPI ---
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 TECHNIQUE: AP and frog-lateral views bilaterally FINDINGS: The hip joint space is symmetric and relatively well maintained. There is no acute fracture or destructive osseous lesion. IMPRESSION: Within normal limits bilaterally <Electronically signed by Juanito Dunbar > 11/09/20 [id number]
== END ==
LOC: M PLAIMG 10:42
PROVIDERS: ATTEND Physician Assistant
DX: M06.4 Inflammatory polyarthropathy (principal); M17.0 Bilateral primary osteoarthritis of knee
CPT/HCPCS: 36415; 73030; 73110; 73130; 73502; 73564; 80069; 82550; 82955; 83735; 85598; 85613; 85652; 85730; 86038; 86140; 86431; G0463

== ENCOUNTER → 2020-11-16 | Outpatient (CLI) | payer MEDICARE, MEDICAID ==
--- NOTE | 2020-11-18 04:46 | ECWPNPC ---
PATIENT NAME: KAHLIL THAPA : 1970 GENDER: FEMALE VISIT DATE: 11/16/2020 DISCHARGE DATE: 11/16/20 1115 VISIT LOCKED DATE TIME: PHYSICIAN: JENNY PACHECO PHYSICIAN PAGER NO: ACTIVE RESOURCE: JENNY PACHECO REASON FOR APPOINTMENT 1. NECK HISTORY OF PRESENT ILLNESS GENERAL: HPI 50-YEAR-OLD FEMALE IN FOR CHRONIC PAIN FOLLOW-UP. AT LAST CLINIC VISIT PATIENT WAS STARTED ON BACLOFEN AND SHE ADMITS TODAY THAT THIS WAS NOT BENEFICIAL. SHE RATES HER PAIN CURRENTLY AT A 0 OUT OF 10 BUT STATES THAT IT AVERAGES A 10 OUT OF 10. PATIENT FURTHER STATES THE PAIN STARTS IN HER NECK AND RADIATES UPWARDS INTO HER HEAD.. -. FALL RISK SCREENING: SCREENING ONE FALLS REPORTED IN THE LAST YEAR WITH INJURY. PATIENT DID NOT SEEK IMMEDIATE MEDICAL TREATMENT.. PAIN SCREENING: PATIENT HAS A COMPLAINT OF ACUTE OR CHRONIC PAIN :YES LOCATION OF PAIN:NECK INTENSITY OF PAIN (SCALE OF 1 TO 10):0 AVERAGE IS 10 WHAT DOES YOUR PAIN FEEL LIKE:OTHER NECK IS STIFF. PATIENT STATES SHE HAS MIGRAINES. DURATION:INTERMITTENT, AWAKENS FROM SLEEP PAIN IS INCREASED BY:OTHERS NOTHING SEEMS TO INCREASE THE PAIN. PAIN IS DECREASED BY:OTHERS NOTHING EASES THE PAIN. NURSING NOTE: -. PAIN CENTER INTAKE QUESTIONS: DO YOU HAVE A HISTORY OF MRSA? :NO DO YOU TAKE A BLOOD THINNERS? :YES XARELTO DO YOU HAVE ANY BLEEDING DISORDERS? :NO ANY NEW NUMBNESS OR WEAKNESS IN YOUR LEGS OR ARMS? :NO ANY PACEMAKER,DEFIBRILLATOR, OR DORSAL COLUMN STIMULATOR? :NO DO YOU HAVE ANY RASHES OR OPEN SORES? :NO ARE YOU ALLERGIC TO IV DYE? :NO ARE YOU DIABETIC? :NO ANY NEW PROBLEMS WITH YOUR MEDICATIONS? :NO HAVE YOU RECEIVED A VACCINE IN THE PAST 30 DAYS? :YES IF SO WHAT VACCINE AND WHEN? 2ND COVID VACCINATION 10/19/2020 DO YOU PLAN TO RECEIVE A VACCINE IN THE NEXT 21 DAYS? :YES MIGHT CONSIDER THE SHINGLES VACCINATION DO YOU NEED ANY PRESCRIPTION? :NO DO YOU TAKE ANY IMMUNOSUPPRESSIVE MEDICATIONS? :NO DO YOU HAVE ANY KIDNEY OR LIVER DISEASE? :YES FATTY LIVER IS THERE A CHANCE YOU COULD BE ? :N/A ARE YOU BREAST FEEDING? :N/A CURRENT MEDICATIONS TAKING VITAMIN B-12 1000 MCG TABLET 1 TABLET ORALLY ONCE A DAY TAKING NEXPLANON 68 MG IMPLANT DIRECTED SUBCUTANEOUS TAKING TOPIRAMATE 100 MG TABLET 1 TABLET ORALLY TWICE A DAY TAKING RELPAX 40 MG TABLET 1 TABLET NEEDED ONE TIME ORALLY ONCE A DAY PRN MIGRAINE TAKING RIVAROXABAN 20 MG TABLET 1 TABLET WITH FOOD ORALLY ONCE A DAY TAKING EZETIMIBE 10 MG TABLET 1 TABLET ORALLY ONCE A DAY TAKING ROSUVASTATIN CALCIUM 20 MG TABLET 1 TABLET ORALLY ONCE A DAY TAKING LATUDA 80 MG TABLET 2 TABLET ORALLY BEFORE BEDTIME TAKING PRAZOSIN HCL 2 MG CAPSULE TAKE ONE CAPSULE BY MOUTH AT BEDTIME MAXIMUM DAILY DOSE 1 ORAL TAKING LORAZEPAM 1 MG TABLET 1 TABLET AT BEDTIME NEEDED ORALLY THREE TIMES DAILY TAKING LAMOTRIGINE 100 MG TABLET 1 TABLET ORALLY TWICE A DAY TAKING SEROQUEL 300 MG TABLET 2 TABLET ORALLY BEFORE BEDTIME TAKING FLUOXETINE HCL 40 MG CAPSULE 1 CAPSULE ORALLY ONCE A DAY TAKING BACLOFEN 5 MG TABLET 1 TABLET NEEDED ORALLY THREE TIMES A DA PRNY TAKING ERGOCALCIFEROL 32712 UNIT CAPSULE 1 CAPSULE ORALLY EVERY 7 DAYS TAKING PLAQUENIL 200 MG TABLET 1 TAB ORALLY ONCE A DAY X 1 WEEK, THEN BID MEDICATION LIST REVIEWED AND RECONCILED WITH THE PATIENT PAST MEDICAL HISTORY MIGRAINE HEADACHES, COMMON TYPE-01/2011, 12/[address] OF THE BRAIN/ NORMAL MRI BRAIN S CONTRAST BILATERAL SUPRASPINATUS TENDINITIS-JULY 2011 NORMAL BILATERAL SHOULDER X-RAY/APRIL 2011 NEGATIVE RHEUMATOID FACTOR, RACHEL IMPAIRED FASTING GLUCOSE, GEST DM WITH 2ND PREG B12 DEFICIENCY HYPERLIPIDEMIA 2B BIPOLAR DISORDER/INSONMIA/VERÓNICA FIBROCYSTIC BREAST DISEASE CEVICAL [id number] C-7 NFN/SS, BERONICA C45 MOD SS, MILD NFN-10/03/20 MRI HYPERTENSION-02/2014 NORMAL 24H URINE FOR METANEPHRINES/CATECHOLAMINES, UFC, ALODSTERONE, NA CERVICAL SPONDYLOSIS-MILD ML, BERONICA C56 C SMALL CENTRAL FOCAL HNP C MILD B UNCO SPUR BY 03/2018 MRI H/O YANELY III S/P LEEP L DISTAL TIBIA/FIBULA CLOSED FRACTURE SP 09/2017 MECHANICAL FALL-CASTED BY DR. INGRIS CHAVISG PINEAL CYST NAFLD-DIFFUSE FATTY INFILTRATION C FOCAL DEPOSITION IN MEDIAL SEGMENT OF L LOBE AT SITE ? NODULE BY 03/2017 CT AP-SEEN BY 03/2017 MRI ABD S/C VERÓNICA 12/02/18 CTA CHEST SINGLE 4 MM PE IN PROXIMAL SEGMENTAL OF RLL MEDIAL BASILAR SEGMENT PA; THEREFORE, + RIVAROX LOAD/RX AND DCED OCP CONSTIPATION, CHRONIC-12/2018 CT AP LARGE PANCOLONIC FECAL RETENTION ALLERGIES ESTRADIOL: OTHER - CONTRAINDICATION SURGICAL HISTORY COLPOSCOPY 08/11/2015 & 08/26/2016 LEEP 09/07/15 FAMILY HISTORY FATHER: ALIVE 68 YRS, HTN, PROSTATE CANCER, ENLARGED HEART MOTHER: ALIVE 66 YRS, DM, HYSTERECTOMY, CIRRHOSIS, DIAGNOSED WITH DIABETES IN 2 AT THE AGE OF 1, OTHER SPECIFIED CONDITIONS INFLUENCING HEALTH STATUS SIBLINGS: ALIVE 42 YRS, SISTER-THYROID DISORDER, BROTHER-HEALTHY SON(S): ALIVE 14 YRS, ASTHMA DAUGHTER(S): ALIVE 16 YRS, NEUROCARDIOGENIC SYNCOPE PATERNAL GRAND FATHER: , HTN, DM PATERNAL GRAND MOTHER: , HTN, DM, PANCREATIC CANCER MATERNAL GRAND FATHER: , HTN, STROKE MATERNAL GRAND MOTHER: , HTN, DM, BREAST CANCER PATERNAL UNCLE: PATERNAL AUNT: ALIVE 1 YRS, BREAST CANCER DX LATE 20 MATERNAL UNCLE: ALIVE, UNSPECIFIED HEART DISEASE MATERNAL AUNT: ALIVE, UNSPECIFIED HEART DISEASE 1 BROTHER(S) , 1 SISTER(S) . 1 SON(S) , 1 DAUGHTER(S) . DENIES COLON OR OVARIAN CANCERS. FATHER HAD PROSTATE CANCER. MATERNAL AUNT AND MATERNAL UNCLE DIAGNOSED WITH CANCER. SOCIAL HISTORY GENERAL: TOBACCO USE ARE YOU A: NEVER SMOKER LATEX QUESTIONNAIRE LATEX ALLERGY : HAVE YOU EVER DEVELOPED ANY TYPE OF REACTION AFTER HANDLING LATEX PRODUCTS SUCH RUBBER GLOVES, CONDOMS, DIAPHRAGMS, BALLOONS, SOCKS, OR UNDERWEAR?NO LATEX ALLERGY : HAVE YOU EVER DEVELOPED ANY TYPE OF REACTION DURING OR AFTER DENTAL APPOINTMENT, VAGINAL/RECTAL EXAMINATION, SURGICAL PROCEDURE, OR ANY OTHER EXPOSURE?NO LATEX RISK : HAVE YOU EVER HAD ANY DIFFICULTY BREATHING OR HIVES AFTER EATING OR HANDLING ANY FRUITS, OR VEGETABLES; SUCH KIWI, BANANAS, STONE FRUITS, OR CHESTNUTSNO LATEX RISK : DO YOU HAVE A PREVIOUS PERSONAL HISTORY OF MORE THAN NINE SURGERIES, SPINA BIFIDA, OR REPEATED CATHERIZATIONS? NO LATEX RISK : ARE YOU FREQUENTLY EXPOSED TO LATEX PRODUCTS IN YOUR OCCUPATION?NO DATE ASKED : 11/16/2020 ALCOHOL USE: YES VERY RARELY. ALCOHOL SCREENING DID YOU HAVE A DRINK CONTAINING ALCOHOL IN THE PAST YEAR?NO POINTS0 INTERPRETATIONNEGATIVE RECREATIONAL DRUG USE DENIES. CAFFEINE CAFFEINE USE?YES AILY HAS A CUP SEXUAL HX HAD SEX IN THE LAST 12 MONTHS (VAGINAL, ORAL, OR ANAL)?YES WITHMEN ONLY USE PROTECTION?NO LMP:01/11/19 HAVE YOU EVER HAD AN STD?NO HIV / HEP-C SCREENING HIV TEST OFFERED TO PATIENT:YES DATE OFFERED:01/14/2019 TEST ACCEPTED:NO REASON:PATIENT DECLINED BROCHURE PROVIDED TO PATIENTNO ORIENTAL ORTHODOX NO LUTHERAN BELIEFS THAT WOULD IMPACT HEALTH CARE. LANGUAGE YORUBA. EDUCATION LEVEL OF EDUCATION:HIGH SCHOOL LEARNING BARRIERS / SPECIAL NEEDS CHANGE FROM LAST VISIT?NO BARRIERS TO LEARNING?NO HEARING IMPAIRED?NO VISION IMPAIRED?YES READING COGNITIVELY IMPAIRED?NO READINESS TO LEARN?YES LEARNING PREFERENCES?NO LEARNING CAPABILITIES PRESENT?YES EMOTIONAL BARRIERS?NO SPECIAL DEVICES?NO INSTRUMENT PROCESSING TECH NEEDED?NO DOMESTIC VIOLENCE DO YOU FEEL SAFE IN YOUR ENVIRONMENT?YES OCCUPATION: DISABLED. DIET: NO HX EATING DISORDERS. EXERCISE: NO REGULAR EXERCISE SOME WALKING. MARITAL STATUS: .. OTHERS AT HOME: BOYFRIEND. - HAS THE PATIENT BEEN EDUCATED REGARDING HIS/HER PLAN OF CARE?YES HAS THE PATIENT BEEN EDUCATED REGARDING PAIN, THE RISK FOR PAIN, THE IMPORTANCE OF EFFECTIVE PAIN MANAGEMENT, AND THE PAIN ASSESSMENT PROCESS?YES HOUSING: OWNS HOME. ADVANCE DIRECTIVE ADVANCE DIRECTIVE DISCUSSED WITH PATIENT:YES PT DOES NOT HAVE ANY ADVANCED DIRECTIVES AND SHE DECLINED HCP INFORMATION AT THIS TIME. AD HOSPITALIZATION/MAJOR DIAGNOSTIC PROCEDURE REVIEW OF SYSTEMS CONSTITUTIONAL: ANY RECENT FEVER NO . CHILLS NO . WEIGHT CHANGE OF UNKNOWN REASONS NO . GASTROENTEROLOGY: NEW UNEXPLAINABLE CHANGES IN BOWEL CONTROL NO . CONSTIPATION NO . GENITOURINARY: ANY NEW CHANGE IN BLADDER CONTROL? NO . NEUROLOGY: NEW ONSET DIZZINESS OR NEUROLOGICAL CHANGES NOT MENTIONED NO . NEW NUMBNESS OR PAIN PATTERNS NOT MENTIONED AND PERTINENT TO TODAY'S VISIT NO . CARDIOLOGY: NEW CHEST PRESSURE NO . PATIENT DENIES NO . RESPIRATORY: UNEXPLAINABLE COUGH NO . NEW SHORTNESS OF BREATH NO . VITAL SIGNS WT 158.8 LBS, HT 62 IN, BMI 29.04 INDEX, BP 107/74 MM HG, HR 89 /MIN, RR 18 /MIN, TEMP 96.0 F, OXYGEN SAT % 93%, SAFE IN ENV? (Y/N) YES, NA INITIALS AW [id number] ESCALONA MA. EXAMINATION GENERAL EXAMINATION: GENERALNO ACUTE DISTRESS, WELL NOURISHED AND HYDRATED. PSYCHAPPROPRIATE MOOD AND AFFECT . NECK:PATIENT DOES ENDORSE INCREASED PAIN WITH FACET LOADING.. LUNGS:CLEAR TO AUSCULTATION BILATERALLY, NO WHEEZES, RHONCHI, RALES. HEART:NO MURMURS, REGULAR RATE AND RHYTHM. ASSESSMENTS SPONDYLOSIS OF CERVICAL REGION WITHOUT MYELOPATHY OR RADICULOPATHY - M47.812 (PRIMARY) TREATMENT SPONDYLOSIS OF CERVICAL REGION WITHOUT MYELOPATHY OR RADICULOPATHY MED: PAIN NORCO TABLET 5MG/325MG ORALLY HYDROCODONE/ACETAMINOPHEN (ORDERED FOR 11/17/2020) MEDICATION: VALIUM TAB 5MG ORALLY (DIAZEPAM) (ORDERED FOR 11/17/2020) SALINE LOCK (ORDERED FOR 11/17/2020) NOTES: 50-YEAR-OLD FEMALE IN FOR CHRONIC PAIN FOLLOW-UP. GIVEN PRESENTING SYMPTOMS AND RESULTS OF PHYSICAL EXAMINATION RECOMMEND BILATERAL THERAPEUTIC CERVICAL FACET BLOCK C2-C3 C3-C4 WITH IV SEDATION. PATIENT HAS EXPRESSED UNDERSTANDING OF AND WAS IN AGREEMENT WITH TREATMENT PLAN. GIVEN TIME TO ASK QUESTIONS AND EXPRESS CONCERNS. CLINICAL NOTES: PREPROCEDURE AND PROCEDURE INFORMATION PRINTED AND PROVIDED TO PATIENT. PATIENT VERBALIZED AN UNDERSTANDING. MED HOLD REQUEST FAXED TO DR. STARK FOR PLAQUENIL. KIMBERLY ESCALONA MA. PROCEDURE CODES FA211 ESTABILISHED PATIENT [facility] CHARGE DISPOSITION & COMMUNICATION FOLLOW UP POST PROCEDURE (REASON: BILATERAL THERAPEUTIC CERVICAL FACET BLOCK C2-C3,C3-C4 WITH IV SEDATION NEED HOLD ORDER FOR PLAQUENIL ) ELECTRONICALLY SIGNED BY TIFFANIE KLEIN ON 11/17/2020 AT 08:38 AM EDT DISCLAIMER : THIS IS A VISIT SUMMARY EXTRACTED FROM THE [employer] CHART. IT IS NOT A COPY OF THE [employer] PROGRESS NOTE. ANGELINA
== END ==
LOC: M PAIN 10:30
PROVIDERS: ATTEND Family Medicine
DX: M47.812 Spondylosis without myelopathy or radiculopathy, cervical region (principal); G43.009 Migraine without aura, not intractable, without status migrainosus; E78.5 Hyperlipidemia, unspecified; F31.9 Bipolar disorder, unspecified; I10 Essential (primary) hypertension; K76.0 Fatty (change of) liver, not elsewhere classified; Z79.899 Other long term (current) drug therapy; Z88.8 Allergy status to other drugs, medicaments and biological substances; Z79.01 Long term (current) use of anticoagulants

== ENCOUNTER → 2020-12-19 | Outpatient (CLI) | payer MEDICARE, MEDICAID ==
[2020-12-19 17:15] LABS: BASO % 0.3 % (0.0-1.0); EOS # 0.1 10^3/uL (0.0-0.5); EOS % 1.3 % (0.0-3.0); HEMOGLOBIN 13.6 g/dl (12.0-15.5); LYMPH # 1.6 10^3/uL (1.5-5.0); LYMPH % 25.7 % (24.0-44.0); MEAN CORPUSCULAR HEMOGLOBIN 29.3 pg (27.0-33.0); MEAN CORPUSCULAR HGB CONC 32.4 g/dl (32.0-36.5); MEAN CORPUSCULAR VOLUME 90.5 fl (80.0-96.0); MONO # 0.5 10^3/uL (0.0-0.8); MONO % 7.7 % (2.0-8.0); NEUTROPHILS # 3.9 10^3/uL (1.5-8.5); NEUTROPHILS % 64.7 % (36.0-66.0); PLATELET COUNT, AUTOMATED 203 10^3/uL (150-450); RED BLOOD COUNT 4.64 10^6/uL (4.00-5.40); WHITE BLOOD COUNT 6.1 10^3/uL (4.0-10.0)
[2020-12-19 17:45] LABS: ALBUMIN 4.4 GM/DL (3.2-5.2); ALT/SGPT 37 U/L (12-78); BILIRUBIN,TOTAL 0.3 MG/DL (0.2-1.0); BLOOD UREA NITROGEN 16 MG/DL (7-18); CALCIUM LEVEL 9.5 MG/DL (8.5-10.1); CARBON DIOXIDE LEVEL 23 MEQ/L (21-32); CHLORIDE LEVEL 110 MEQ/L (98-107); COMPLEMENT C3 120 MG/DL (90-180); COMPLEMENT C4 22 MG/DL (10-40); CREATININE FOR GFR 0.94 MG/DL (0.55-1.30); GLOMERULAR FILTRATION RATE > 60.0 (>51); GLUCOSE, FASTING 89 MG/DL (70-100); POTASSIUM SERUM 3.8 MEQ/L (3.5-5.1); SODIUM LEVEL 142 MEQ/L (136-145); TOTAL PROTEIN 7.5 GM/DL (6.4-8.2)
== END ==
LOC: M PLALAB 15:25
PROVIDERS: ATTEND Physician Assistant
DX: M06.4 Inflammatory polyarthropathy (principal)

== ENCOUNTER → 2020-12-22 | Outpatient (CLI) | payer MEDICARE, MEDICAID ==
--- NOTE | 2020-12-27 02:47 | ECWPNPC ---
PATIENT NAME: KAHLIL THAPA : 1970 GENDER: FEMALE VISIT DATE: 12/22/2020 DISCHARGE DATE: 12/22/20 1137 VISIT LOCKED DATE TIME: PHYSICIAN: ORESTES CAVAZOS MD PHYSICIAN PAGER NO: ACTIVE RESOURCE: ORESTES CAVAZOS MD REASON FOR APPOINTMENT 1. NECK PAIN HISTORY OF PRESENT ILLNESS GENERAL: 50-YEAR-OLD FEMALE PATIENT WITH A HISTORY OF CHRONIC NECK PAIN. THE PATIENT DESCRIBES THE PAIN SEVERE, ACHING WITH A PAIN SCORE RANGING FROM 2-10/10. FALL RISK SCREENING: SCREENING : NO FALLS REPORTED IN THE LAST YEAR. PAIN SCREENING: PATIENT HAS A COMPLAINT OF ACUTE OR CHRONIC PAIN :YES LOCATION OF PAIN:NECK INTENSITY OF PAIN (SCALE OF 1 TO 10):2 WHAT DOES YOUR PAIN FEEL LIKE:OTHER TIGHT DURATION:INTERMITTENT FOR LAST COUPLE OF DAYS PAIN IS INCREASED BY:ACTIVITIES PAIN IS DECREASED BY:OTHERS NOTHING HELPS, BUT TRIED HEAT NURSING NOTE: -. PAIN CENTER INTAKE QUESTIONS: DO YOU HAVE A HISTORY OF MRSA? :NO DO YOU TAKE A BLOOD THINNERS? :YES RIVAROXABAN 20 MG DO YOU HAVE ANY BLEEDING DISORDERS? :NO ANY NEW NUMBNESS OR WEAKNESS IN YOUR LEGS OR ARMS? :YES ALL OF HER JOINTS ANY PACEMAKER,DEFIBRILLATOR, OR DORSAL COLUMN STIMULATOR? :NO DO YOU HAVE ANY RASHES OR OPEN SORES? :NO ARE YOU ALLERGIC TO IV DYE? :NO ARE YOU DIABETIC? :NO ANY NEW PROBLEMS WITH YOUR MEDICATIONS? :NO HAVE YOU RECEIVED A VACCINE IN THE PAST 30 DAYS? :NO DO YOU PLAN TO RECEIVE A VACCINE IN THE NEXT 21 DAYS? :NO DO YOU NEED ANY PRESCRIPTION? :NO DO YOU TAKE ANY IMMUNOSUPPRESSIVE MEDICATIONS? :NO DO YOU HAVE ANY KIDNEY OR LIVER DISEASE? :NO IS THERE A CHANCE YOU COULD BE ? :NO ARE YOU BREAST FEEDING? :NO CURRENT MEDICATIONS TAKING VITAMIN B-12 1000 MCG TABLET 1 TABLET ORALLY ONCE A DAY TAKING NEXPLANON 68 MG IMPLANT DIRECTED SUBCUTANEOUS TAKING TOPIRAMATE 100 MG TABLET 1 TABLET ORALLY TWICE A DAY TAKING RELPAX 40 MG TABLET 1 TABLET NEEDED ONE TIME ORALLY ONCE A DAY PRN MIGRAINE TAKING RIVAROXABAN 20 MG TABLET 1 TABLET WITH FOOD ORALLY ONCE A DAY TAKING EZETIMIBE 10 MG TABLET 1 TABLET ORALLY ONCE A DAY TAKING ROSUVASTATIN CALCIUM 20 MG TABLET 1 TABLET ORALLY ONCE A DAY TAKING LATUDA 80 MG TABLET 2 TABLET ORALLY BEFORE BEDTIME TAKING LORAZEPAM 1 MG TABLET 1 TABLET AT BEDTIME NEEDED ORALLY THREE TIMES DAILY TAKING LAMOTRIGINE 100 MG TABLET 1 TABLET ORALLY TWICE A DAY TAKING SEROQUEL 300 MG TABLET 2 TABLET ORALLY BEFORE BEDTIME TAKING FLUOXETINE HCL 40 MG CAPSULE 1 CAPSULE ORALLY ONCE A DAY TAKING ERGOCALCIFEROL 98101 UNIT CAPSULE 1 CAPSULE ORALLY EVERY 7 DAYS TAKING PLAQUENIL 200 MG TABLET 1 TAB ORALLY BID TAKING SAPHRIS 10 MG TABLET SUBLINGUAL 1 TABLET UNDER THE TONGUE AND ALLOW TO DISSOLVE SUBLINGUAL ONCE A DAY NOT-TAKING PRAZOSIN HCL 2 MG CAPSULE TAKE ONE CAPSULE BY MOUTH AT BEDTIME MAXIMUM DAILY DOSE 1 ORAL NOT-TAKING BACLOFEN 5 MG TABLET 1 TABLET NEEDED ORALLY THREE TIMES A DA PRNY MEDICATION LIST REVIEWED AND RECONCILED WITH THE PATIENT PAST MEDICAL HISTORY MIGRAINE HEADACHES, COMMON TYPE-01/2011, 12/[address] OF THE BRAIN/ NORMAL MRI BRAIN S CONTRAST BILATERAL SUPRASPINATUS TENDINITIS-JULY 2011 NORMAL BILATERAL SHOULDER X-RAY/APRIL 2011 NEGATIVE RHEUMATOID FACTOR, RACHEL IMPAIRED FASTING GLUCOSE, GEST DM WITH 2ND PREG B12 DEFICIENCY HYPERLIPIDEMIA 2B BIPOLAR DISORDER/INSONMIA/VERÓNICA FIBROCYSTIC BREAST DISEASE CEVICAL [id number] C-7 NFN/SS, BERONICA C45 MOD SS, MILD NFN-10/03/20 MRI HYPERTENSION-02/2014 NORMAL 24H URINE FOR METANEPHRINES/CATECHOLAMINES, UFC, ALODSTERONE, NA CERVICAL SPONDYLOSIS-MILD ML, BERONICA C56 C SMALL CENTRAL FOCAL HNP C MILD B UNCO SPUR BY 03/2018 MRI H/O YANELY III S/P LEEP L DISTAL TIBIA/FIBULA CLOSED FRACTURE SP 09/2017 MECHANICAL FALL-CASTED BY DR. AMADO NCOG PINEAL CYST NAFLD-DIFFUSE FATTY INFILTRATION C FOCAL DEPOSITION IN MEDIAL SEGMENT OF L LOBE AT SITE ? NODULE BY 03/2017 CT AP-SEEN BY 03/2017 MRI ABD S/C VERÓNICA 12/02/18 CTA CHEST SINGLE 4 MM PE IN PROXIMAL SEGMENTAL OF RLL MEDIAL BASILAR SEGMENT PA; THEREFORE, + RIVAROX LOAD/RX AND DCED OCP CONSTIPATION, CHRONIC-12/2018 CT AP LARGE PANCOLONIC FECAL RETENTION ALLERGIES ESTRADIOL: OTHER - CONTRAINDICATION SOCIAL HISTORY GENERAL: TOBACCO USE ARE YOU A: NEVER SMOKER LATEX QUESTIONNAIRE LATEX ALLERGY : HAVE YOU EVER DEVELOPED ANY TYPE OF REACTION AFTER HANDLING LATEX PRODUCTS SUCH RUBBER GLOVES, CONDOMS, DIAPHRAGMS, BALLOONS, SOCKS, OR UNDERWEAR?NO LATEX ALLERGY : HAVE YOU EVER DEVELOPED ANY TYPE OF REACTION DURING OR AFTER DENTAL APPOINTMENT, VAGINAL/RECTAL EXAMINATION, SURGICAL PROCEDURE, OR ANY OTHER EXPOSURE?NO LATEX RISK : HAVE YOU EVER HAD ANY DIFFICULTY BREATHING OR HIVES AFTER EATING OR HANDLING ANY FRUITS, OR VEGETABLES; SUCH KIWI, BANANAS, STONE FRUITS, OR CHESTNUTSNO LATEX RISK : DO YOU HAVE A PREVIOUS PERSONAL HISTORY OF MORE THAN NINE SURGERIES, SPINA BIFIDA, OR REPEATED CATHERIZATIONS? NO LATEX RISK : ARE YOU FREQUENTLY EXPOSED TO LATEX PRODUCTS IN YOUR OCCUPATION?NO DATE ASKED : 12/22/2020 ALCOHOL USE: YES VERY RARELY. ALCOHOL SCREENING DID YOU HAVE A DRINK CONTAINING ALCOHOL IN THE PAST YEAR?NO POINTS0 INTERPRETATIONNEGATIVE RECREATIONAL DRUG USE DENIES. CAFFEINE CAFFEINE USE?YES AILY HAS A CUP SEXUAL HX HAD SEX IN THE LAST 12 MONTHS (VAGINAL, ORAL, OR ANAL)?YES WITHMEN ONLY USE PROTECTION?NO LMP:01/11/19 HAVE YOU EVER HAD AN STD?NO HIV / HEP-C SCREENING HIV TEST OFFERED TO PATIENT:YES DATE OFFERED:01/14/2019 TEST ACCEPTED:NO REASON:PATIENT DECLINED BROCHURE PROVIDED TO PATIENTNO FAITH NO LUTHERAN BELIEFS THAT WOULD IMPACT HEALTH CARE. LANGUAGE MOLDOVAN. EDUCATION LEVEL OF EDUCATION:HIGH SCHOOL LEARNING BARRIERS / SPECIAL NEEDS CHANGE FROM LAST VISIT?NO BARRIERS TO LEARNING?NO HEARING IMPAIRED?NO VISION IMPAIRED?YES READING COGNITIVELY IMPAIRED?NO READINESS TO LEARN?YES LEARNING PREFERENCES?NO LEARNING CAPABILITIES PRESENT?YES EMOTIONAL BARRIERS?NO SPECIAL DEVICES?NO DIRECTOR PATIENT NEEDED?NO DOMESTIC VIOLENCE DO YOU FEEL SAFE IN YOUR ENVIRONMENT?YES OCCUPATION: DISABLED. DIET: NO HX EATING DISORDERS. EXERCISE: NO REGULAR EXERCISE SOME WALKING. MARITAL STATUS: .. OTHERS AT HOME: BOYFRIEND. - HAS THE PATIENT BEEN EDUCATED REGARDING HIS/HER PLAN OF CARE?YES HAS THE PATIENT BEEN EDUCATED REGARDING PAIN, THE RISK FOR PAIN, THE IMPORTANCE OF EFFECTIVE PAIN MANAGEMENT, AND THE PAIN ASSESSMENT PROCESS?YES HOUSING: OWNS HOME. ADVANCE DIRECTIVE ADVANCE DIRECTIVE DISCUSSED WITH PATIENT:YES PT DOES NOT HAVE ANY ADVANCED DIRECTIVES AND SHE DECLINED HCP INFORMATION AT THIS TIME. AD REVIEW OF SYSTEMS CONSTITUTIONAL: ANY RECENT FEVER NO . CHILLS NO . WEIGHT CHANGE OF UNKNOWN REASONS NO . GASTROENTEROLOGY: NEW UNEXPLAINABLE CHANGES IN BOWEL CONTROL NO . CONSTIPATION NO . GENITOURINARY: ANY NEW CHANGE IN BLADDER CONTROL? NO . NEUROLOGY: NEW ONSET DIZZINESS OR NEUROLOGICAL CHANGES NOT MENTIONED NO . NEW NUMBNESS OR PAIN PATTERNS NOT MENTIONED AND PERTINENT TO TODAY'S VISIT NO . CARDIOLOGY: NEW CHEST PRESSURE NO . PATIENT DENIES NO . RESPIRATORY: UNEXPLAINABLE COUGH NO . NEW SHORTNESS OF BREATH NO . VITAL SIGNS WT 157.8 LBS, HT 62 IN, BMI 28.86 INDEX, BP 108/68 MM HG, HR 86 /MIN, RR 18 /MIN, TEMP 97.5 F, OXYGEN SAT % 97%, SAFE IN ENV? (Y/N) YES, NA INITIALS AW [id number].VADIM NATARAJAN. EXAMINATION GENERAL EXAMINATION: THE PATIENT IS ALERT, ORIENTED TIMES THREE AND COOPERATIVE. LUNGS ARE CLEAR TO AUSCULTATION. HEART SHOWS REGULAR RHYTHM, NO MURMURS AND NO GALLOPS. THERE IS INCREASING DISCOMFORT IN THE FACET AREA WITH EXTENSION AND LATERAL ROTATION. MRI OF THE CERVICAL SPINE DATED 03/27/2018 SHOWS FACET ARTHROPATHY CHANGES. ASSESSMENTS SPONDYLOSIS WITHOUT MYELOPATHY OR RADICULOPATHY, CERVICAL REGION - M47.812 (PRIMARY) TREATMENT SPONDYLOSIS WITHOUT MYELOPATHY OR RADICULOPATHY, CERVICAL REGION CONTINUE BACLOFEN TABLET, 5 MG, 1 TABLET NEEDED, ORALLY FOR SPASMS AND PAIN, THREE TIMES A DA PRN, 30 DAYS, 50, REFILLS 1 SALINE LOCK (ORDERED FOR 12/22/2020) CLINICAL NOTES: I DISCUSSED ALTERNATIVES WITH MS. THAPA. WE AGREE ON DOING A BILATERAL DIAGNOSTIC CERVICAL FACET BLOCK C2-C3, C3-C4 NUMBER 1, BOOK AFTER APPROVED. THE PATIENT REPORTS UNDERSTANDING AND AGREES. , I, FRANCISCO QUIROGA, DOCUMENTED THE ABOVE INFORMATION ACTING A SCRIBE FOR DR. CAVAZOS. I HAVE REVIEWED THE ABOVE DOCUMENT, WRITTEN BY FRANCISCO QUIROGA, TARPER, AND I VERIFY THAT IT IS ACCURATE. OTHERS NOTES: 12/22/2020 1121 DIAGNOSTIC CERVICAL FACET PROCEDURE INFORMATION PRINTED AND REVIEWED WITH PATIENT. PATIENT VERBALIZES UNDERSTANDING OF PRE PROCEDURE INSTRUCTIONS REVIEWED AND COPY GOVEN TO PATIENT. PROCEDURE CODES FA211 ESTABILISHED PATIENT [facility] CHARGE [id number] OFFICE/OUTPATIENT VISIT EST DISPOSITION & COMMUNICATION FOLLOW UP PROCEDURE CHANGED TO DIAGNOSTIC (REASON: BILATERAL DIAGNOSTIC CERVICAL FACET BLOCK C2-C3, C3-C4) ELECTRONICALLY SIGNED BY ORESTES CAVAZOS MD, MD ON 12/26/2020 AT 11:23 AM EDT DISCLAIMER : THIS IS A VISIT SUMMARY EXTRACTED FROM THE [employer] CHART. IT IS NOT A COPY OF THE [employer] PROGRESS NOTE. ANGELINA
== END ==
LOC: M PAIN 10:15
PROVIDERS: ATTEND Anesthesiology
DX: M47.812 Spondylosis without myelopathy or radiculopathy, cervical region (principal); G43.009 Migraine without aura, not intractable, without status migrainosus; R73.01 Impaired fasting glucose; E53.8 Deficiency of other specified B group vitamins; E78.5 Hyperlipidemia, unspecified; F31.9 Bipolar disorder, unspecified; G47.00 Insomnia, unspecified; F41.1 Generalized anxiety disorder; I10 Essential (primary) hypertension; K76.0 Fatty (change of) liver, not elsewhere classified; Z79.899 Other long term (current) drug therapy; Z88.8 Allergy status to other drugs, medicaments and biological substances

== ENCOUNTER → 2021-04-18 | Outpatient (CLI) | payer MEDICARE, MEDICAID ==
[2021-04-18 14:22] LABS: BASO % 0.4 % (0.0-1.0); EOS # 0.2 10^3/uL (0.0-0.5); EOS % 4.1 % (0.0-3.0); HEMATOCRIT 46.7 % (36.0-47.0); HEMOGLOBIN 15.1 g/dl (12.0-15.5); LYMPH # 1.8 10^3/uL (1.5-5.0); LYMPH % 37.9 % (24.0-44.0); MEAN CORPUSCULAR HEMOGLOBIN 29.2 pg (27.0-33.0); MEAN CORPUSCULAR HGB CONC 32.3 g/dl (32.0-36.5); MEAN CORPUSCULAR VOLUME 90.2 fl (80.0-96.0); MONO # 0.4 10^3/uL (0.0-0.8); MONO % 8.2 % (2.0-8.0); NEUTROPHILS # 2.3 10^3/uL (1.5-8.5); PLATELET COUNT, AUTOMATED 177 10^3/uL (150-450); RED BLOOD COUNT 5.18 10^6/uL (4.00-5.40); WHITE BLOOD COUNT 4.6 10^3/uL (4.0-10.0)
[2021-04-18 15:05] LABS: ALBUMIN 4.1 GM/DL (3.2-5.2); BILIRUBIN,TOTAL 0.3 MG/DL (0.2-1.0); CALCIUM LEVEL 9.1 MG/DL (8.5-10.1); CHOLESTEROL RISK RATIO 4.413 (<5); CREATININE FOR GFR 1.04 MG/DL (0.55-1.30); FREE T4 0.6 NG/DL (0.76-1.46); GLOMERULAR FILTRATION RATE 59.5 (>51); POTASSIUM SERUM 4.4 MEQ/L (3.5-5.1); THYROID STIMULATING HORMONE 0.989 uIU/ML (0.358-3.740); TOTAL PROTEIN 6.9 GM/DL (6.4-8.2)
[2021-04-18 15:07] LABS: TOTAL 25(OH) VITAMIN D 61.9 NG/ML (30.0-100.0)
[2021-04-18 15:37] LABS: HEMOGLOBIN A1c 5.4 %
== END ==
LOC: M PLALAB 12:55
PROVIDERS: ATTEND Nurse Practitioner Family
DX: E55.9 Vitamin D deficiency, unspecified (principal); E78.2 Mixed hyperlipidemia; D51.8 Other vitamin B12 deficiency anemias; Z79.899 Other long term (current) drug therapy

== ENCOUNTER → 2021-06-07 | Outpatient (CLI) | payer MEDICARE, MEDICAID | LOC: M LABSMTC 09:59 | PROVIDERS: ATTEND Anesthesiology | DX: Z01.818 Encounter for other preprocedural examination (principal); Z11.52 Encounter for screening for COVID-19 ==

== ENCOUNTER → 2021-08-21 | Outpatient (CLI) | payer MEDICARE, MEDICAID ==
[~2021-08-21] MED LIST changes: -LATU80TA PO; +LATU80TA2 PO; +TIZA10TA; -TIZA4TAB4
[2021-08-21 13:12] LABS: BASO % 0.6 % (0.0-1.0); EOS # 0.3 10^3/uL (0.0-0.5); EOS % 5.7 % (0.0-3.0); HEMATOCRIT 45.4 % (36.0-47.0); HEMOGLOBIN 14.8 g/dl (12.0-15.5); LYMPH # 1.7 10^3/uL (1.5-5.0); MEAN CORPUSCULAR HEMOGLOBIN 30.7 pg (27.0-33.0); MEAN CORPUSCULAR HGB CONC 32.6 g/dl (32.0-36.5); MEAN CORPUSCULAR VOLUME 94.2 fl (80.0-96.0); MONO # 0.4 10^3/uL (0.0-0.8); MONO % 7.2 % (2.0-8.0); NEUTROPHILS # 2.8 10^3/uL (1.5-8.5); NEUTROPHILS % 53.1 % (36.0-66.0); PLATELET COUNT, AUTOMATED 192 10^3/uL (150-450); RED BLOOD COUNT 4.82 10^6/uL (4.00-5.40); WHITE BLOOD COUNT 5.3 10^3/uL (4.0-10.0)
[2021-08-21 13:26] LABS: ALT/SGPT 33 U/L (12-78); BILIRUBIN,TOTAL 0.1 MG/DL (0.2-1.0); BLOOD UREA NITROGEN 13 MG/DL (7-18); CALCIUM LEVEL 9.1 MG/DL (8.5-10.1); CARBON DIOXIDE LEVEL 23 MEQ/L (21-32); CHLORIDE LEVEL 116 MEQ/L (98-107); COMPLEMENT C3 97 MG/DL (90-180); COMPLEMENT C4 21 MG/DL (10-40); CREATININE FOR GFR 0.95 MG/DL (0.55-1.30); GLOMERULAR FILTRATION RATE > 60.0 (>51); GLUCOSE, FASTING 93 MG/DL (70-100); POTASSIUM SERUM 4.1 MEQ/L (3.5-5.1); SODIUM LEVEL 143 MEQ/L (136-145); TOTAL PROTEIN 6.9 GM/DL (6.4-8.2)
[2021-08-21 14:03] LABS: ERYTHROCYTE SEDIMENTATION RATE 4 mm/hr (0-30)
[2021-08-23 07:12] LABS: BETA 2 MICROGLOBULIN 1.9 mg/L (0.6-2.4); CARDIOLIPIN IGA ANTIBODY <9 APL U/mL (0-11); CARDIOLIPIN IGG ANTIBODY <9 GPL U/mL (0-14); CARDIOLIPIN IGM ANTIBODY <9 MPL U/mL (0-12)
[2021-08-24 12:01] LABS: DRVV SCREEN 71.3 SEC
[2021-08-24 12:22] LABS: PTT LUPUS TYPE ANTICOAG SCREEN 1.9 (0-1.2)
[2021-08-24 12:29] LABS: DRVV CONFIRM 46.8 SEC; LUPUS CONFIRM RATIO 1.2
[2021-08-24 12:32] LABS: NORMALIZED RATIO 1.58 (0.00-1.20)
[2021-08-26 13:07] LABS: HEXAGONAL PHASE PHOSPHOLIPID 4 sec (0-11)
== END ==
LOC: M PLAIMG 10:08
PROVIDERS: ATTEND Family Medicine
DX: M06.4 Inflammatory polyarthropathy (principal)

== ENCOUNTER 2021-09-14 13:48 | Outpatient (CLI) | payer MEDICARE, MEDICAID ==
[~2021-09-14] VITALS: Ht 154.9 cm; Wt 65.9 kg
[2021-09-14 13:50] VITALS: BP 97/64
[2021-09-14] MEDS ORDERED: ZOLEDRONIC ACID 5 MG in IV 1 EA IV ONE (14:00)
[2021-09-14 14:42] VITALS: BP 97/64
[2021-09-14 14:55] VITALS: BP 108/67
== END 2021-09-14 14:55 | disposition home or self-care (01) ==
LOC: M INFU 13:48
PROVIDERS: ATTEND Family Medicine
DX: M85.9 Disorder of bone density and structure, unspecified (principal)
CPT/HCPCS: 96365; J3489

== ENCOUNTER → 2021-11-13 | Outpatient (CLI) | payer MEDICARE, MEDICAID ==
[~2021-11-13] MED LIST changes: +BUPR-70 PO; -BUPR100T3 PO
== END ==
LOC: M PLAIMG 08:45
PROVIDERS: ATTEND Physician Assistant
DX: K59.00 Constipation, unspecified (principal)

== ENCOUNTER → 2022-02-04 | Outpatient (CLI) | payer MEDICARE, MEDICAID | LOC: M WHC 14:30 | PROVIDERS: ATTEND Family Medicine | DX: Z12.31 Encounter for screening mammogram for malignant neoplasm of breast (principal) ==

== ENCOUNTER → 2022-02-04 | Outpatient (CLI) | payer MEDICARE, MEDICAID ==
[2022-02-04 18:02] LABS: BASO % 0.3 % (0.0-1.0); EOS % 0.3 % (0.0-3.0); HEMATOCRIT 41.6 % (36.0-47.0); HEMOGLOBIN 14.3 g/dl (12.0-15.5); LYMPH # 0.5 10^3/uL (1.5-5.0); LYMPH % 6.7 % (24.0-44.0); MEAN CORPUSCULAR HEMOGLOBIN 31.5 pg (27.0-33.0); MEAN CORPUSCULAR HGB CONC 34.4 g/dl (32.0-36.5); MEAN CORPUSCULAR VOLUME 91.6 fl (80.0-96.0); MONO # 0.4 10^3/uL (0.0-0.8); MONO % 6.1 % (2.0-8.0); NEUTROPHILS # 6.3 10^3/uL (1.5-8.5); NEUTROPHILS % 86.3 % (36.0-66.0); PLATELET COUNT, AUTOMATED 178 10^3/uL (150-450); RED BLOOD COUNT 4.54 10^6/uL (4.00-5.40); WHITE BLOOD COUNT 7.3 10^3/uL (4.0-10.0)
[2022-02-04 19:10] LABS: ALBUMIN 4.7 GM/DL (3.2-5.2); ALT/SGPT 24 U/L (12-78); BILIRUBIN,TOTAL 0.4 MG/DL (0.2-1.0); BLOOD UREA NITROGEN 9 MG/DL (7-18); CALCIUM LEVEL 9.1 MG/DL (8.5-10.1); CARBON DIOXIDE LEVEL 20 MEQ/L (21-32); CHLORIDE LEVEL 109 MEQ/L (98-107); CHOLESTEROL LEVEL 180 MG/DL (<200); CHOLESTEROL RISK RATIO 3.461 (<5); COMPLEMENT C3 101 MG/DL (90-180); COMPLEMENT C4 28 MG/DL (10-40); CREATININE FOR GFR 0.94 MG/DL (0.55-1.30); FREE T4 0.74 NG/DL (0.76-1.46); GLOMERULAR FILTRATION RATE > 60.0 (>51); GLUCOSE, FASTING 86 MG/DL (70-100); HDL CHOLESTEROL 52 MG/DL (>40); LDL CHOLESTEROL 104 MG/DL (<100); NON-HDL-C 128 MG/DL; POTASSIUM SERUM 3.1 MEQ/L (3.5-5.1); SODIUM LEVEL 138 MEQ/L (136-145); TOTAL PROTEIN 7.6 GM/DL (6.4-8.2); TRIGLYCERIDES LEVEL 118 MG/DL (<150)
[2022-02-05 15:50] LABS: ALBUMIN % 63.2 % (55.8-66.1); ALPHA-1-GLOBULIN % 4.2 % (2.9-4.9); ALPHA-2-GLOBULINS % 8.9 % (7.1-11.8); BETA-1-GLOBULINS % 5.7 % (4.7-7.2); GAMMA GLOBULIN % 13.7 % (11.1-18.8)
[2022-02-05 15:51] LABS: ALPHA-1-GLOBULINS 0.32 GM/DL (0.17-0.41); ALPHA-2-GLOBULINS 0.68 GM/DL (0.42-0.99); BETA-1-GLOBULINS 0.43 GM/DL (0.28-0.60); BETA-2-GLOBULINS 0.33 GM/DL (0.19-0.55); BETA-2-GLOBULINS % 4.3 % (3.2-6.5); GAMMA GLOBULINS 1.04 GM/DL (0.65-1.58)
== END ==
LOC: M PLALAB 15:18
PROVIDERS: ATTEND Family Medicine
DX: M06.4 Inflammatory polyarthropathy (principal); E78.00 Pure hypercholesterolemia, unspecified

== ENCOUNTER → 2022-07-01 | Outpatient (CLI) | payer MEDICARE, MEDICAID ==
[2022-07-01 17:01] LABS: BASO % 0.3 % (0.0-1.0); EOS # 0.1 10^3/uL (0.0-0.5); EOS % 2.1 % (0.0-3.0); HEMATOCRIT 46.4 % (36.0-47.0); HEMOGLOBIN 15.5 g/dl (12.0-15.5); LYMPH # 1.3 10^3/uL (1.5-5.0); LYMPH % 22.6 % (24.0-44.0); MEAN CORPUSCULAR HEMOGLOBIN 30.3 pg (27.0-33.0); MEAN CORPUSCULAR HGB CONC 33.4 g/dl (32.0-36.5); MEAN CORPUSCULAR VOLUME 90.8 fl (80.0-96.0); MONO # 0.5 10^3/uL (0.0-0.8); MONO % 7.7 % (2.0-8.0); NEUTROPHILS # 3.9 10^3/uL (1.5-8.5); NEUTROPHILS % 67.1 % (36.0-66.0); PLATELET COUNT, AUTOMATED 178 10^3/uL (150-450); RED BLOOD COUNT 5.11 10^6/uL (4.00-5.40); WHITE BLOOD COUNT 5.8 10^3/uL (4.0-10.0)
[2022-07-01 17:15] LABS: ERYTHROCYTE SEDIMENTATION RATE 18 mm/hr (0-30)
[2022-07-01 17:33] LABS: ALBUMIN 4.1 G/DL (3.2-5.2); ALKALINE PHOSPHATASE 103 U/L (46-116); ALT/SGPT 13 U/L (7.0-40); AST/SGOT 15 U/L (<34); BILIRUBIN,TOTAL 0.6 MG/DL (0.3-1.2); BLOOD UREA NITROGEN 12 MG/DL (9-23); CALCIUM LEVEL 9.3 MG/DL (8.5-10.1); CARBON DIOXIDE LEVEL 22 MMOL/L (20-31); CHLORIDE LEVEL 109 MMOL/L (98-107); CREATININE FOR GFR 0.93 MG/DL (0.55-1.30); GLOMERULAR FILTRATION RATE > 60.0 (>51); GLUCOSE, FASTING 97 MG/DL (60-100); POTASSIUM SERUM 3.6 MMOL/L (3.5-5.1); SODIUM LEVEL 142 MMOL/L (136-145); TOTAL PROTEIN 6.9 G/DL (5.7-8.2)
[2022-07-01 17:35] LABS: TOTAL 25(OH) VITAMIN D 53.7 NG/ML (20.0-100.0)
== END ==
LOC: M PLALAB 14:16
PROVIDERS: ATTEND Family Medicine
DX: M06.4 Inflammatory polyarthropathy (principal); D50.9 Iron deficiency anemia, unspecified

== ENCOUNTER 2022-09-16 14:58 | Outpatient (CLI) | payer MEDICARE, MEDICAID ==
[~2022-09-16] VITALS: Ht 157.5 cm; Wt 70.5 kg
[~2022-09-16 14:58] MED LIST changes: +TOPI-254 PO; -TOPI50TA9 PO
[2022-09-16 15:00] VITALS: BP 112/67
[2022-09-16] MEDS ORDERED: ZOLEDRONIC ACID 5 MG in IV 1 EA IV ONE (15:30)
[2022-09-16 15:50] VITALS: BP 100/58
== END 2022-09-16 16:00 | disposition home or self-care (01) ==
LOC: M INFU 14:58
PROVIDERS: ATTEND Family Medicine
DX: M85.80 Other specified disorders of bone density and structure, unspecified site (principal)
CPT/HCPCS: 96365; J3489

== ENCOUNTER → 2023-03-06 | Outpatient (CLI) | payer MEDICARE, MEDICAID ==
[~2023-03-06] MED LIST changes: -AMIT25TA17 PO; +AMIT25TA19 PO; +MECL-209 PO; -MECL1TAB31 PO
[2023-03-06 15:24] LABS: BASO % 0.4 % (0.0-1.0); EOS # 0.1 10^3/uL (0.0-0.5); EOS % 1.8 % (0.0-3.0); HEMATOCRIT 43.6 % (36.0-47.0); HEMOGLOBIN 14.7 g/dl (12.0-15.5); LYMPH # 1.2 10^3/uL (1.5-5.0); LYMPH % 24.4 % (24.0-44.0); MEAN CORPUSCULAR HEMOGLOBIN 30.8 pg (27.0-33.0); MEAN CORPUSCULAR HGB CONC 33.7 g/dl (32.0-36.5); MEAN CORPUSCULAR VOLUME 91.2 fl (80.0-96.0); MONO # 0.4 10^3/uL (0.0-0.8); MONO % 8.1 % (2.0-8.0); NEUTROPHILS # 3.2 10^3/uL (1.5-8.5); NEUTROPHILS % 64.9 % (36.0-66.0); PLATELET COUNT, AUTOMATED 165 10^3/uL (150-450); RED BLOOD COUNT 4.78 10^6/uL (4.00-5.40); WHITE BLOOD COUNT 4.9 10^3/uL (4.0-10.0)
[2023-03-06 15:36] LABS: IRON (FE) 57 UG/DL (50-170)
[2023-03-06 15:37] LABS: ALKALINE PHOSPHATASE 85 U/L (46-116); ALT/SGPT 21 U/L (7.0-40); AST/SGOT 10 U/L (<34); BILIRUBIN,TOTAL 0.3 MG/DL (0.3-1.2); BLOOD UREA NITROGEN 13 MG/DL (9-23); CALCIUM LEVEL 8.9 MG/DL (8.5-10.1); CARBON DIOXIDE LEVEL 30 MMOL/L (20-31); CHLORIDE LEVEL 106 MMOL/L (98-107); CREATININE FOR GFR 0.79 MG/DL (0.55-1.30); GLOMERULAR FILTRATION RATE > 60.0 (>51); GLUCOSE, FASTING 105 MG/DL (60-100); POTASSIUM SERUM 3.4 MMOL/L (3.5-5.1); SODIUM LEVEL 144 MMOL/L (136-145); TOTAL PROTEIN 6.9 G/DL (5.7-8.2)
[2023-03-06 15:42] LABS: FERRITIN 34.4 NG/ML (7.3-270.7)
== END ==
LOC: M PLALAB 09:51
PROVIDERS: ATTEND Physician Assistant Medical
DX: I26.93 Single subsegmental thrombotic pulmonary embolism without acute cor pulmonale (principal); M06.4 Inflammatory polyarthropathy; D50.9 Iron deficiency anemia, unspecified

== ENCOUNTER 2023-06-13 03:21 | Emergency (ER) | payer MEDICARE, MEDICAID ==
[~2023-06-13 03:21] MED LIST changes: +TOPI-21 PO; -TOPI-254 PO
[2023-06-13 03:22] VITALS: BP 132/78; TEMP 98.8; O2SAT 100
== END 2023-06-13 03:34 | disposition left against medical advice (07) ==
LOC: M ED 03:21
DX: Z53.21 Procedure and treatment not carried out due to patient leaving prior to being seen by health care provider (principal)

== ENCOUNTER → 2023-07-30 | Outpatient (REF) | payer MEDICARE, MEDICAID ==
[2023-07-30 17:16] LABS: BASO % 0.3 % (0.0-1.0); EOS # 0.1 10^3/uL (0.0-0.5); EOS % 3.1 % (0.0-3.0); HEMATOCRIT 45.5 % (36.0-47.0); HEMOGLOBIN 15.1 g/dl (12.0-15.5); LYMPH # 1.1 10^3/uL (1.5-5.0); LYMPH % 29.7 % (24.0-44.0); MEAN CORPUSCULAR HEMOGLOBIN 30.4 pg (27.0-33.0); MEAN CORPUSCULAR HGB CONC 33.2 g/dl (32.0-36.5); MEAN CORPUSCULAR VOLUME 91.5 fl (80.0-96.0); MONO # 0.3 10^3/uL (0.0-0.8); MONO % 8.1 % (2.0-8.0); NEUTROPHILS # 2.2 10^3/uL (1.5-8.5); NEUTROPHILS % 58.5 % (36.0-66.0); PLATELET COUNT, AUTOMATED 161 10^3/uL (150-450); RED BLOOD COUNT 4.97 10^6/uL (4.00-5.40); WHITE BLOOD COUNT 3.8 10^3/uL (4.0-10.0)
[2023-07-30 17:36] LABS: C REACTIVE PROTEIN QUANTITATIV < 0.40 MG/DL (<1.0)
[2023-07-30 17:37] LABS: ERYTHROCYTE SEDIMENTATION RATE 10 mm/hr (0-30)
[2023-07-30 17:38] LABS: ALBUMIN 4.1 G/DL (3.2-5.2); ALKALINE PHOSPHATASE 87 U/L (46-116); ALT/SGPT 17 U/L (7.0-40); AST/SGOT 14 U/L (<34); BILIRUBIN,TOTAL 0.2 MG/DL (0.3-1.2); BLOOD UREA NITROGEN 11 MG/DL (9-23); CALCIUM LEVEL 8.8 MG/DL (8.5-10.1); CARBON DIOXIDE LEVEL 26 MMOL/L (20-31); CHLORIDE LEVEL 108 MMOL/L (98-107); CHOLESTEROL LEVEL 192 MG/DL (<200); CHOLESTEROL RISK RATIO 4.98 (<5); CREATININE FOR GFR 0.98 MG/DL (0.55-1.30); GLOMERULAR FILTRATION RATE > 60.0 (>51); GLUCOSE, FASTING 99 MG/DL (60-100); HDL CHOLESTEROL 38.5 MG/DL (>40); LDL CHOLESTEROL 124.1 MG/DL (<100); MAGNESIUM LEVEL 2.1 MG/DL (1.8-2.4); NON-HDL-C 153.5 MG/DL; POTASSIUM SERUM 3.9 MMOL/L (3.5-5.1); SODIUM LEVEL 141 MMOL/L (136-145); THYROID STIMULATING HORMONE 0.946 uIU/ML (0.55-4.78); TOTAL 25(OH) VITAMIN D 27.1 NG/ML (20.0-100.0); TOTAL PROTEIN 6.9 G/DL (5.7-8.2); TRIGLYCERIDES LEVEL 147 MG/DL (<150)
[2023-07-30 17:39] LABS: RHEUMATOID FACTOR QUANT < 3.5 IU/ML (<14)
[2023-07-30 18:04] LABS: HIV 1&2 SCREEN NEGATIVE (NEGATIVE)
[2023-07-30 18:10] LABS: HEPATITIS C VIRUS ABY INDEX < 0.02 INDEX (<0.8)
== END ==
LOC: M LAB REF 16:11
PROVIDERS: ATTEND Physician Assistant
DX: M25.50 Pain in unspecified joint (principal); Z11.9 Encounter for screening for infectious and parasitic diseases, unspecified; E66.9 Obesity, unspecified; E07.9 Disorder of thyroid, unspecified

== ENCOUNTER → 2024-01-16 | Outpatient (REF) | payer MEDICARE, MEDICAID ==
[~2024-01-16] MED LIST changes: +RISP-106 PO; -RISP-9 PO
[2024-01-16 18:10] LABS: BASO % 0.6 % (0.0-1.0); EOS # 0.1 10^3/uL (0.0-0.5); EOS % 3.7 % (0.0-3.0); HEMATOCRIT 43.7 % (36.0-47.0); HEMOGLOBIN 14.5 g/dl (12.0-15.5); MEAN CORPUSCULAR HEMOGLOBIN 30.6 pg (27.0-33.0); MEAN CORPUSCULAR HGB CONC 33.2 g/dl (32.0-36.5); MEAN CORPUSCULAR VOLUME 92.2 fl (80.0-96.0); MONO # 0.4 10^3/uL (0.0-0.8); MONO % 9.9 % (2.0-8.0); NEUTROPHILS % 57.2 % (36.0-66.0); PLATELET COUNT, AUTOMATED 187 10^3/uL (150-450); RED BLOOD COUNT 4.74 10^6/uL (4.00-5.40); WHITE BLOOD COUNT 3.5 10^3/uL (4.0-10.0)
[2024-01-16 18:40] LABS: FERRITIN 27.3 NG/ML (7.3-270.7); MAGNESIUM LEVEL 2.1 MG/DL (1.8-2.4)
[2024-01-16 18:42] LABS: PERCENT SATURATION 29.3 % (13.2-45.0)
[2024-01-16 18:45] LABS: FOLATE 13.65 NG/ML (>5.4)
== END ==
LOC: M LAB REF 16:28
PROVIDERS: ATTEND Physician Assistant
DX: E53.8 Deficiency of other specified B group vitamins (principal); D50.9 Iron deficiency anemia, unspecified; E83.42 Hypomagnesemia

== ENCOUNTER → 2024-02-11 | Outpatient (CLI) | payer MEDICAID, MEDICARE, OTHER ==
[~2024-02-11] MED LIST changes: +PROHANCE 279.3MG/ML 15ML VIAL As Ordered ONE
== END ==
LOC: M RAD 12:22
PROVIDERS: ATTEND Physician Assistant
DX: G93.0 Cerebral cysts (principal)
CPT/HCPCS: 70553; A9576

== ENCOUNTER → 2024-02-19 | Outpatient (CLI) | payer OTHER ==
[~2024-02-19] MED LIST changes: +ISOVUE-370 76% 100ML VIAL As Ordered ONE; -PROHANCE 279.3MG/ML 15ML VIAL As Ordered ONE
== END ==
LOC: M RAD 08:13
PROVIDERS: ATTEND Physician Assistant
DX: R06.02 Shortness of breath (principal)
CPT/HCPCS: 71275; Q9967

== ENCOUNTER → 2024-02-21 | Outpatient (CLI) | payer OTHER ==
[~2024-02-21] MED LIST changes: -ISOVUE-370 76% 100ML VIAL As Ordered ONE
[2024-02-21 13:19] LABS: BASO % 0.4 % (0.0-1.0); EOS # 0.2 10^3/uL (0.0-0.5); EOS % 4.8 % (0.0-3.0); HEMOGLOBIN 13.9 g/dl (12.0-15.5); LYMPH # 0.9 10^3/uL (1.5-5.0); LYMPH % 19.3 % (24.0-44.0); MEAN CORPUSCULAR HEMOGLOBIN 30.9 pg (27.0-33.0); MEAN CORPUSCULAR HGB CONC 33.9 g/dl (32.0-36.5); MEAN CORPUSCULAR VOLUME 91.1 fl (80.0-96.0); MONO # 0.4 10^3/uL (0.0-0.8); MONO % 7.9 % (2.0-8.0); NEUTROPHILS # 3.3 10^3/uL (1.5-8.5); NEUTROPHILS % 67.4 % (36.0-66.0); PLATELET COUNT, AUTOMATED 180 10^3/uL (150-450); WHITE BLOOD COUNT 4.8 10^3/uL (4.0-10.0)
[2024-02-21 13:31] LABS: HEMOGLOBIN A1c 5.2 % (4.0-6.0)
[2024-02-21 13:40] LABS: ALBUMIN 3.9 G/DL (3.2-5.2); ALKALINE PHOSPHATASE 92 U/L (46-116); ALT/SGPT 32 U/L (7.0-40); AST/SGOT 20 U/L (<34); BILIRUBIN,TOTAL 0.3 MG/DL (0.3-1.2); BLOOD UREA NITROGEN 13 MG/DL (9-23); CALCIUM LEVEL 9.2 MG/DL (8.5-10.1); CARBON DIOXIDE LEVEL 22 MMOL/L (20-31); CHLORIDE LEVEL 116 MMOL/L (98-107); CREATININE FOR GFR 0.85 MG/DL (0.55-1.30); GLOMERULAR FILTRATION RATE > 60.0 (>51); GLUCOSE, FASTING 122 MG/DL (60-100); POTASSIUM SERUM 3.7 MMOL/L (3.5-5.1); SODIUM LEVEL 143 MMOL/L (136-145); TOTAL PROTEIN 6.8 G/DL (5.7-8.2)
[2024-02-21 13:42] LABS: THYROID STIMULATING HORMONE 0.443 uIU/ML (0.55-4.78); THYROXINE (T4) 3.1 UG/DL (4.5-10.9)
[2024-02-21 13:45] LABS: FREE THYROXINE INDEX 1.2 % (1.3-4.8); T UPTAKE 37.6 % (22.5-37.0)
[2024-02-25 16:38] LABS: HOMOCYST(E)INE SERUM 10.1 umol/L (<10.4)
== END ==
LOC: M LAB 12:36
PROVIDERS: ATTEND Physician Assistant
DX: M25.50 Pain in unspecified joint (principal); E07.9 Disorder of thyroid, unspecified

== ENCOUNTER → 2024-03-09 | Outpatient (CLI) | payer OTHER, MEDICAID | LOC: M CARPUL 13:34 | PROVIDERS: ATTEND Physician Assistant | DX: R06.09 Other forms of dyspnea (principal) ==

== ENCOUNTER → 2024-03-25 | Outpatient (CLI) | payer OTHER, MEDICAID | LOC: M WHC 16:09 | PROVIDERS: ATTEND Nurse Practitioner Family | DX: Z12.31 Encounter for screening mammogram for malignant neoplasm of breast (principal) ==

== ENCOUNTER → 2024-03-25 | Outpatient (CLI) | payer OTHER, MEDICAID | LOC: M WHC 15:22 | PROVIDERS: ATTEND Nurse Practitioner Family | DX: Z12.31 Encounter for screening mammogram for malignant neoplasm of breast (principal); R92.333 Mammographic heterogeneous density, bilateral breasts ==

== ENCOUNTER → 2024-03-25 | Outpatient (REF) | payer OTHER, MEDICAID | LOC: M SFHCWAGY 18:10 | PROVIDERS: ATTEND Nurse Practitioner Family | DX: Z12.4 Encounter for screening for malignant neoplasm of cervix (principal) | CPT/HCPCS: 87624; G0123 ==

== ENCOUNTER → 2024-05-06 | Outpatient (CLI) | payer OTHER, MEDICAID | LOC: M CARPUL 10:49 | PROVIDERS: ATTEND Physician Assistant | DX: R06.02 Shortness of breath (principal) ==

== ENCOUNTER 2024-06-12 16:51 | Emergency (ER) | payer OTHER, MEDICAID ==
[~2024-06-12] VITALS: Ht 154.9 cm; Wt 64.0 kg
[2024-06-12] MEDS ORDERED: SUMA100T2 (17:05)
[2024-06-12] MEDS ORDERED: ASEN10TA (17:05)
[2024-06-12] MEDS ORDERED: DIAZ10TA2 (17:05)
[2024-06-12] MEDS ORDERED: BELS1TAB4 (17:05)
[2024-06-12] MEDS ORDERED: LITH300T2 (17:05)
[2024-06-12 17:41] LABS: BASO % 0.5 % (0.0-1.0); EOS # 0.1 10^3/uL (0.0-0.5); EOS % 1.5 % (0.0-3.0); HEMATOCRIT 44.5 % (36.0-47.0); LYMPH # 1.6 10^3/uL (1.5-5.0); LYMPH % 24.4 % (24.0-44.0); MEAN CORPUSCULAR HEMOGLOBIN 30.1 pg (27.0-33.0); MEAN CORPUSCULAR HGB CONC 33.7 g/dl (32.0-36.5); MEAN CORPUSCULAR VOLUME 89.4 fl (80.0-96.0); MONO # 0.4 10^3/uL (0.0-0.8); MONO % 6.1 % (2.0-8.0); NEUTROPHILS # 4.4 10^3/uL (1.5-8.5); NEUTROPHILS % 66.9 % (36.0-66.0); PLATELET COUNT, AUTOMATED 276 10^3/uL (150-450); RED BLOOD COUNT 4.98 10^6/uL (4.00-5.40); WHITE BLOOD COUNT 6.6 10^3/uL (4.0-10.0)
[2024-06-12] MEDS: diazePAM 10 MG TAB PO ONE (17:46)
[2024-06-12] MEDS: LIDOCAINE 5% (LIDODERM) PATCH TD ONE (17:46)
[2024-06-12] MEDS: KETOROLAC 30 MG/ML 1ML VIAL IV ONE (17:46)
[2024-06-12 18:06] LABS: ALBUMIN 4.3 G/DL (3.2-5.2); ALKALINE PHOSPHATASE 114 U/L (35-104); ALT/SGPT 26 U/L (7.0-40); AST/SGOT 57 U/L (<34); BILIRUBIN,TOTAL 0.3 MG/DL (0.3-1.2); BLOOD UREA NITROGEN 9 MG/DL (9-23); CARBON DIOXIDE LEVEL 25 MMOL/L (20-31); CHLORIDE LEVEL 105 MMOL/L (98-107); CREATININE FOR GFR 0.98 MG/DL (0.55-1.30); GLOMERULAR FILTRATION RATE > 60.0 (>51); GLUCOSE, FASTING 148 MG/DL (60-100); LITHIUM LEVEL 0.24 MMOL/L (1.0-1.20); POTASSIUM SERUM 4.2 MMOL/L (3.5-5.1); SODIUM LEVEL 140 MMOL/L (136-145); TOTAL PROTEIN 7.4 G/DL (5.7-8.2)
[2024-06-12] MEDS: NS IV ONE (19:52)
[2024-06-12] MEDS: KETAMINE HCL IV ONE (19:52)
[2024-06-12] MEDS: ACETAMINOPHEN *IV* 1,000 MG in IV 1 EA IV ONE (20:30)
[2024-06-12] MEDS: MORPHINE 4 MG/ML 1ML VIAL IV PRN (20:50)
[2024-06-12] MEDS ORDERED: MEDR4PAK PO (21:46)
[2024-06-12 22:00] VITALS: BP 110/64; TEMP 96.6; O2SAT 97
== END 2024-06-12 22:02 | disposition home or self-care (01) ==
LOC: M ED 16:51
DX: M54.50 Low back pain, unspecified (principal); F31.9 Bipolar disorder, unspecified; F43.10 Post-traumatic stress disorder, unspecified; F25.0 Schizoaffective disorder, bipolar type; Z79.1 Long term (current) use of non-steroidal anti-inflammatories (NSAID); Z79.899 Other long term (current) drug therapy
CPT/HCPCS: 80053; 80178; 81001; 85025; 94760; 96365; 96375; 99285; J1100; J1885

== ENCOUNTER → 2024-06-25 | Outpatient (REF) | payer OTHER, MEDICAID ==
[~2024-06-25] MED LIST changes: +ASEN10TA; +BELS1TAB4; +DIAZ10TA2; +LITH300T2; +MEDR4PAK PO; +SUMA100T2
[2024-06-25 16:22] LABS: BASO % 0.4 % (0.0-1.0); EOS # 0.1 10^3/uL (0.0-0.5); EOS % 1.7 % (0.0-3.0); HEMATOCRIT 43.7 % (36.0-47.0); HEMOGLOBIN 14.4 g/dl (12.0-15.5); LYMPH # 1.1 10^3/uL (1.5-5.0); LYMPH % 21.2 % (24.0-44.0); MONO # 0.2 10^3/uL (0.0-0.8); NEUTROPHILS # 3.8 10^3/uL (1.5-8.5); NEUTROPHILS % 72.1 % (36.0-66.0); PLATELET COUNT, AUTOMATED 221 10^3/uL (150-450); WHITE BLOOD COUNT 5.2 10^3/uL (4.0-10.0)
[2024-06-25 16:41] LABS: ALBUMIN 4.4 G/DL (3.2-5.2); ALKALINE PHOSPHATASE 101 U/L (35-104); ALT/SGPT 28 U/L (7.0-40); AST/SGOT 26 U/L (<34); BILIRUBIN,TOTAL 0.3 MG/DL (0.3-1.2); BLOOD UREA NITROGEN 12 MG/DL (9-23); C REACTIVE PROTEIN QUANTITATIV < 0.50 MG/DL (<1.0); CARBON DIOXIDE LEVEL 30 MMOL/L (20-31); CHLORIDE LEVEL 104 MMOL/L (98-107); CREATININE FOR GFR 0.77 MG/DL (0.55-1.30); ERYTHROCYTE SEDIMENTATION RATE 23 mm/hr (0-30); GLOMERULAR FILTRATION RATE > 60.0 (>51); GLUCOSE, FASTING 92 MG/DL (60-100); POTASSIUM SERUM 3.9 MMOL/L (3.5-5.1); SODIUM LEVEL 144 MMOL/L (136-145); TOTAL PROTEIN 7.8 G/DL (5.7-8.2)
== END ==
LOC: M LAB REF 15:56
PROVIDERS: ATTEND Physician Assistant
DX: M54.50 Low back pain, unspecified (principal)

== ENCOUNTER → 2024-07-13 | Outpatient (CLI) | payer OTHER, MEDICAID ==
[~2024-07-13] MED LIST changes: +ISOVUE-370 76% 100ML VIAL ONE
== END ==
LOC: M PLAIMG 10:38
PROVIDERS: ATTEND Physician Assistant
DX: M54.50 Low back pain, unspecified (principal)
CPT/HCPCS: 74177; Q9967

== ENCOUNTER → 2024-07-16 | Outpatient (CLI) | payer OTHER, MEDICAID ==
[~2024-07-16] MED LIST changes: -ISOVUE-370 76% 100ML VIAL ONE
== END ==
LOC: M PLAIMG 09:39
PROVIDERS: ATTEND Physician Assistant
DX: M51.360 Other intervertebral disc degeneration, lumbar region with discogenic back pain only (principal); M51.27 Other intervertebral disc displacement, lumbosacral region; M51.26 Other intervertebral disc displacement, lumbar region

== ENCOUNTER → 2024-08-26 | Outpatient (REF) | payer OTHER, MEDICAID ==
[2024-08-26 18:17] LABS: BASO % 0.4 % (0.0-1.0); EOS % 0.4 % (0.0-3.0); HEMATOCRIT 39.6 % (36.0-47.0); HEMOGLOBIN 13.5 g/dl (12.0-15.5); LYMPH # 0.8 10^3/uL (1.5-5.0); LYMPH % 15.2 % (24.0-44.0); MEAN CORPUSCULAR HEMOGLOBIN 30.8 pg (27.0-33.0); MEAN CORPUSCULAR HGB CONC 34.1 g/dl (32.0-36.5); MEAN CORPUSCULAR VOLUME 90.4 fl (80.0-96.0); MONO # 0.3 10^3/uL (0.0-0.8); MONO % 4.7 % (2.0-8.0); NEUTROPHILS # 4.2 10^3/uL (1.5-8.5); PLATELET COUNT, AUTOMATED 170 10^3/uL (150-450); RED BLOOD COUNT 4.38 10^6/uL (4.00-5.40); WHITE BLOOD COUNT 5.3 10^3/uL (4.0-10.0)
[2024-08-26 18:34] LABS: ERYTHROCYTE SEDIMENTATION RATE 6 mm/hr (0-30)
[2024-08-26 18:38] LABS: CREATININE,RANDOM URINE 82.3 MG/DL
[2024-08-26 18:39] LABS: APPEARANCE, URINE CLEAR (CLEAR); BACTERIA, URINE AUTO NEGATIVE (NEGATIVE); BILIRUBIN, URINE AUTO NEGATIVE (NEGATIVE); BLOOD, URINE BLOOD NEGATIVE (NEGATIVE); COLOR, URINE YELLOW (YELLOW); GLUCOSE, URINE (UA) AUTO NEGATIVE (NEGATIVE); KETONE, URINE AUTO NEGATIVE (NEGATIVE); LEUKOCYTE ESTERASE, URINE AUTO NEGATIVE (NEGATIVE); NITRITE, URINE AUTO NEGATIVE (NEGATIVE); PROTEIN, URINE AUTO NEGATIVE (NEGATIVE); RBC, URINE AUTO 0 /HPF (0-3); SQUAMOUS EPITHELIAL CELL UR AU 0 /HPF (0-6); WBC, URINE AUTO 1 /HPF (0-3)
[2024-08-26 18:41] LABS: COMPLEMENT C3 123.5 MG/DL (90.0-170.0)
[2024-08-26 18:42] LABS: ALBUMIN 4.4 G/DL (3.2-5.2); ALKALINE PHOSPHATASE 82 U/L (35-104); ALT/SGPT 15 U/L (7.0-40); AST/SGOT 22 U/L (<34); BILIRUBIN,TOTAL 0.5 MG/DL (0.3-1.2); BLOOD UREA NITROGEN 10 MG/DL (9-23); C REACTIVE PROTEIN QUANTITATIV < 0.50 MG/DL (<1.0); CALCIUM LEVEL 9.8 MG/DL (8.5-10.1); CARBON DIOXIDE LEVEL 24 MMOL/L (20-31); CHLORIDE LEVEL 106 MMOL/L (98-107); COMPLEMENT C4 22.8 MG/DL (12-36); CREATININE FOR GFR 0.77 MG/DL (0.55-1.30); GLOMERULAR FILTRATION RATE > 60.0 (>51); GLUCOSE, FASTING 101 MG/DL (60-100); POTASSIUM SERUM 3.8 MMOL/L (3.5-5.1); SODIUM LEVEL 142 MMOL/L (136-145); TOTAL PROTEIN 7.2 G/DL (5.7-8.2)
== END ==
LOC: M SFHCRHEU 13:48
PROVIDERS: ATTEND Internal Medicine Rheumatology
DX: Z87.898 Personal history of other specified conditions (principal); R52 Pain, unspecified; R06.02 Shortness of breath

== ENCOUNTER 2024-12-14 12:01 | Observation (INO) | payer OTHER ==
[~2024-12-14 12:01] MED LIST changes: -BELS1TAB4; +BELS1TAB4 PO; -DIAZ10TA2; +DIAZ10TA2 PO; -IBUP-1022 PO; +IBUP600T42 PO; -LITH300T2; +LITH300T2 PO; +TOPI-257 PO; -TOPI100T9 PO
[2024-12-14] MEDS: NS (Normal Saline) 0.9% 1,000 ML IV ONE (12:35)
[2024-12-14] MEDS: NALOXONE INJ 0.4 MG/1 ML VIAL IV PRN (12:43)
[2024-12-14 12:51] LABS: BASO % 0.2 % (0.0-1.0); EOS # 0.2 10^3/uL (0.0-0.5); EOS % 4.1 % (0.0-3.0); HEMOGLOBIN 12.6 g/dl (12.0-15.5); LYMPH # 1.2 10^3/uL (1.5-5.0); LYMPH % 20.2 % (24.0-44.0); MEAN CORPUSCULAR HEMOGLOBIN 31.5 pg (27.0-33.0); MEAN CORPUSCULAR HGB CONC 33.2 g/dl (32.0-36.5); MONO # 0.5 10^3/uL (0.0-0.8); MONO % 8.3 % (2.0-8.0); NEUTROPHILS # 3.9 10^3/uL (1.5-8.5); NEUTROPHILS % 66.9 % (36.0-66.0); PLATELET COUNT, AUTOMATED 139 10^3/uL (150-450); WHITE BLOOD COUNT 5.8 10^3/uL (4.0-10.0)
[2024-12-14 12:53] LABS: KETONE, URINE AUTO RFX NEGATIVE (NEGATIVE); LEUKOCYTE ESTERASE UR AUTO RFX NEGATIVE (NEGATIVE); NITRITE, URINE AUTO RFX NEGATIVE (NEGATIVE); RBC, URINE AUTO RFX 0 /HPF (0-3); SQUAM EPITHELIAL CELL UR AURFX 0 /HPF (0-6); WBC, URINE AUTO RFX 0 /HPF (0-3)
[2024-12-14 12:55] LABS: ETHYL ALCOHOL (ETHANOL) < 0.003 % (0.000-0.010)
[2024-12-14 12:57] LABS: ALBUMIN 3.5 G/DL (3.2-5.2); ALKALINE PHOSPHATASE 74 U/L (35-104); ALT/SGPT 15 U/L (7.0-40); AST/SGOT 19 U/L (<34); BILIRUBIN,DIRECT 0.1 MG/DL (<0.4); BILIRUBIN,TOTAL 0.4 MG/DL (0.3-1.2); BLOOD UREA NITROGEN 11 MG/DL (9-23); CALCIUM LEVEL 8.9 MG/DL (8.5-10.1); CARBON DIOXIDE LEVEL 21 MMOL/L (20-31); CHLORIDE LEVEL 116 MMOL/L (98-107); CREATININE FOR GFR 0.95 MG/DL (0.55-1.30); GLOMERULAR FILTRATION RATE 70.8 (>51); GLUCOSE, FASTING 95 MG/DL (60-100); LITHIUM LEVEL 0.89 MMOL/L (1.0-1.20); POTASSIUM SERUM 3.4 MMOL/L (3.5-5.1); SALICYLATE LEVEL < 3.0 MG/DL (<30); SODIUM LEVEL 146 MMOL/L (136-145); TOTAL PROTEIN 5.8 G/DL (5.7-8.2)
[2024-12-14 12:59] LABS: THYROID STIMULATING HORMONE 0.237 uIU/ML (0.55-4.78)
[2024-12-14 13:15] LABS: AMPHETAMINES LEVEL URINE NEGATIVE (NEGATIVE); BARBITURATES URINE NEGATIVE (NEGATIVE); CANNABINOIDS URINE NEGATIVE (NEGATIVE); COCAINE METABOLITE URINE NEGATIVE (NEGATIVE); METHADONE URINE NEGATIVE (NEGATIVE); OPIATES URINE NEGATIVE (NEGATIVE); PHENCYCLIDINE URINE NEGATIVE (NEGATIVE)
[2024-12-14 13:16] LABS: BENZODIAZEPINES URINE POSITIVE (NEGATIVE)
[2024-12-14 13:42] LABS: ABG BASE EXCESS -6.8 (-2.0-2.0); ABG HCO3 18.1 MMOL/L (22.0-26.0); ABG O2 SATURATION 97.1 % (95.0-99.0); ABG PARTIAL PRESSURE CO2 34.2 mmHg (35.0-45.0); ABG PARTIAL PRESSURE O2 94.2 mmHg (75.0-100.0); ABG TOTAL CO2 19.1 MMOL/L (22.0-29.0); ABG pH (ARTERIAL) 7.341 UNITS (7.350-7.450)
[2024-12-14 14:00] LABS: MAGNESIUM LEVEL 2.1 MG/DL (1.8-2.4)
[2024-12-14] MEDS ORDERED: MAGN400T33 PO (20:14)
[2024-12-14] MEDS ORDERED: ROPI1TAB73 PO (20:14)
[2024-12-14] MEDS ORDERED: DOXE50CA PO (20:14)
[2024-12-14] MEDS ORDERED: VITA1CAP25 PO (20:14)
[2024-12-14] MEDS ORDERED: OXYC10TA3 PO (20:14)
[2024-12-14] MEDS ORDERED: BUPR-670 PO (20:14)
[2024-12-14] MEDS ORDERED: TOPI-257 PO (20:14)
[2024-12-14] MEDS ORDERED: RIME75TA SL (20:14)
[2024-12-14] MEDS ORDERED: ADDE20TA PO (20:14)
[2024-12-14] MEDS ORDERED: ATOR40TA75 PO (20:14)
[2024-12-14] MEDS ORDERED: LUMA42CA PO (20:14)
[2024-12-14] MEDS ORDERED: HOME MED LIST COMPLETE! XX SCH (20:15)
[2024-12-14 22:17] VITALS: TEMP 97.2
[2024-12-15] MEDS ORDERED: MAALOX 30 ML SUSP *UDC PO PRN (02:10)
[2024-12-15] MEDS ORDERED: ACETAMINOPHEN 325 MG TAB PO PRN (02:10)
[2024-12-15] MEDS ORDERED: MOM 30 ML SUSPENSION UDC PO PRN (02:10)
[2024-12-15] MEDS: NS (Normal Saline) 0.9% 1,000 ML IV ONE (03:36)
[2024-12-15 08:00] VITALS: BP 109/67; O2SAT 100
[2024-12-17 14:52] LABS: LAMOTRIGINE (LAMICTAL) 6.5 mcg/mL (2.5-15.0)
== END 2024-12-15 08:15 | disposition left against medical advice (07) ==
LOC: M ED 12:01 → M ED INP 12:02
PROVIDERS: ADMIT Student in an Organized Health Care Education/Training Program; ATTEND Student in an Organized Health Care Education/Training Program
DX: R41.82 Altered mental status, unspecified (principal); I95.9 Hypotension, unspecified; F31.9 Bipolar disorder, unspecified; J45.909 Unspecified asthma, uncomplicated; E78.5 Hyperlipidemia, unspecified; G43.909 Migraine, unspecified, not intractable, without status migrainosus; G45.4 Transient global amnesia; I10 Essential (primary) hypertension; M81.0 Age-related osteoporosis without current pathological fracture; M47.812 Spondylosis without myelopathy or radiculopathy, cervical region; F41.9 Anxiety disorder, unspecified; G47.9 Sleep disorder, unspecified; Z79.899 Other long term (current) drug therapy
CPT/HCPCS: 36600; 51701; 70450; 71045; 80047; 80048; 80076; 80143; 80175; 80178; 80201; 80307; 81001; 82077; 82803; 83605; 83735; 84443; 85025; 87040; 93005; 93041; 94760; 96361; 96374; 99285; G0378; J2310

== ENCOUNTER → 2025-01-26 | Outpatient (REF) | payer OTHER, MEDICAID ==
[~2025-01-26] MED LIST changes: +ADDE20TA PO; +ATOR40TA75 PO; +BUPR-670 PO; +DOXE50CA PO; +IBUP-1022 PO; -IBUP600T42 PO; +LUMA42CA PO; +MAGN400T33 PO; +OXYC10TA3 PO; +RIME75TA SL; +ROPI1TAB73 PO; +VITA1CAP25 PO
[2025-01-26 17:42] LABS: BASO # 0.0 10^3/uL (0.0-0.2); BASO % 0.1 % (0.0-1.0); EOS # 0.4 10^3/uL (0.0-0.5); EOS % 5.0 % (0.0-3.0); LYMPH # 1.2 10^3/uL (1.5-5.0); LYMPH % 16.5 % (24.0-44.0); MONO # 0.6 10^3/uL (0.0-0.8); MONO % 8.4 % (2.0-8.0); NEUTROPHILS # 5.2 10^3/uL (1.5-8.5); NEUTROPHILS % 69.6 % (36.0-66.0); PLATELET COUNT, AUTOMATED 235 10^3/uL (150-450)
[2025-01-26 20:34] LABS: ALT/SGPT 16.0 U/L (7.0-40); AST/SGOT 31.0 U/L (<34); CALCIUM LEVEL 9.8 MG/DL (8.5-10.1); CARBON DIOXIDE LEVEL 26.0 MMOL/L (20-31); CHLORIDE LEVEL 107.0 MMOL/L (98-107); CHOLESTEROL LEVEL 164.0 MG/DL (<200); CHOLESTEROL RISK RATIO 4.14 (<5); CREATININE FOR GFR 1.06 MG/DL (0.55-1.30); FREE T4 0.81 NG/DL (0.89-1.76); GLOMERULAR FILTRATION RATE 62.0 (>51); IRON (FE) 75.0 UG/DL (50-170); LDL CHOLESTEROL 96.2 MG/DL (<100); MAGNESIUM LEVEL 2.3 MG/DL (1.8-2.4); NON-HDL-C 124.4 MG/DL; PERCENT SATURATION 20.7 % (13.2-45.0); POTASSIUM SERUM 4.5 MMOL/L (3.5-5.1); SODIUM LEVEL 144.0 MMOL/L (136-145); TOTAL 25(OH) VITAMIN D 68.3 NG/ML (20.0-100.0); TRIGLYCERIDES LEVEL 141.0 MG/DL (<150)
[2025-01-27 01:13] LABS: ESTIMATED AVERAGE GLUCOSE 97.0 MG/DL (60-110)
== END ==
LOC: M LAB REF 16:25
PROVIDERS: ATTEND Physician Assistant
DX: E78.5 Hyperlipidemia, unspecified (principal); R94.6 Abnormal results of thyroid function studies; M85.80 Other specified disorders of bone density and structure, unspecified site; D50.9 Iron deficiency anemia, unspecified; E83.42 Hypomagnesemia; Z79.899 Other long term (current) drug therapy

== ENCOUNTER → 2025-02-04 | Outpatient (REF) | payer OTHER, MEDICAID | LOC: M LAB REF 16:17 | PROVIDERS: ATTEND Family Medicine Addiction Medicine | DX: R21 Rash and other nonspecific skin eruption (principal) ==